=== PATIENT | male | born 1960 | race Caucasian/White ===

== ENCOUNTER 2024-11-25 10:24 | Emergency (ER) | payer BC, SELFPAY ==
--- OUTSIDE RECORDS SUMMARY | 2012-05-03 05:28 | XMS_ITS | Continuity of Care Document ---
Author Organization [facility] Address [address] [place] [address] Phone Care Team Providers Care Risk Management Consultant Name Role Phone Unavailable Unavailable Unavailable Allergies, Adverse Reactions, Alerts Substance Reaction Status Criticality No Known allergies Medications Medication Instructions Dosage Effective Dates (start - stop) Status Comments No Drug Therapy Prescribed Advance Directives Directive Yes / No Effective Date File Name No Information Encounters Encounter Description Practice Location Reason(s) For Visit Diagnoses Date Provider Providers Copied on Encounter [facility], [address], [place], [place], [id number], [place] tel:[phone] [facility] No Information No Information Referring Provider: [place] [id number], [place], [address]. tel:[phone] Family History Family Member Type Diagnosis Age At Onset No Information Payers Payer name Insurance type Covered green party ID Shahid rose(s) [facility] [id number] Social History Type Description Quantity Date Captured Comments Sex Male Smoking Status No Information Chief Complaint And Reason For Visit No Information Reason For Referral Reason For Referral No Information History Of Present Illness Encounter Date Complaint History Of Prese nt Illness No Information Functional Status Date Functional Assessmen t No Information Medications Administered Medication Instructions Dosage Effective Dates (start - stop) Status Comments No Drug Therapy Prescribed Instructions Date Instruction Additional Infor mation No Information Assessments Type Assessment Date No Information Patient Care Teams Name Effective Dates (start - stop) Status Members No Information
--- OUTSIDE RECORDS SUMMARY | 2013-04-16 10:15 | XMS_ITS | Continuity of Care Document ---
Author Organization [facility] Address [address] [address] [place] [address] Phone Care Team Providers Care Delivery Agent Name Role Phone Unavailable Unavailable Unavailable Medications Medication Instructions Dosage Effective Dates (start - stop) Status Comments Stool Softener 100 mg capsule take 1 capsule (100MG) by ORAL route every day 100 MG - Active Procedures Procedure Date Offic/outpt E&m New Mod-hi Routine Serum Collection Basic Metabolic Panel Thyroid Stim Hormone Results Test Name Date and Time Measure Units Reference Range Abnormal Flag Status Comments Panel Description: Basic Metabolic Panel Final Calcium, Serum 13 15:21:22 9.1 mg/dl 8.5-10.1 Final Carbon Dioxide, Total Mar- 13 15:21:22 31 mmol/L 21-32 Final Chloride, Serum Mar- 13 15:21:22 101 mmol/L 98-107 Final Creatinine, Serum Mar- 13 15:21:22 1.20 mg/dl 0.60-1.30 Final Glucose, Serum Mar- 13 15:21:22 65 mg/dl 74-100 L Final Potassium, Serum Mar- 13 15:21:22 3.8 mmol/L 3.5-5.1 Final Sodium, Serum Mar- 13 15:21:22 140 mmol/L 136-145 Final BUN Mar- 13 15:21:22 15 mg/dl 5-22 Final BUN/Creatinine Ratio 13 15:21:22 12.50 10.00-20.00 Final eGFR If Africn Am 13 15:21:22 > 60 > 60 Final This calculation is for [facility] patients eGFR If NonAfricn Am 13 15:21:22 > 60 > 60 Final This calculation is for Non [facility] patients ANGAP 13 15:21:22 12.20 5.00-18.00 Final Panel Description: TSH Final TSH 15:21:22 1.63 uIU/ml 0.36-5.00 Final Advance Directives Directive Yes / No Effective Date File Name Resuscitation Not Answered N/A N/A Life Support Not Answered N/A N/A Intubation Not Answered N/A N/A Antibiotics Not Answered N/A N/A IV Fluid Support Not Answered N/A N/A Tube Feed Not Answered N/A N/A Other Directive N/A N/A WARNING:The information contained in this section is historical and is provided for information only and does not constitute a legal document or any assurance that the information is still accurate. Please verify the information with the prather of the legal document before using it for clinical purposes. Encounters Encounter Description Practice Location Reason(s) For Visit Diagnoses Date Provider Providers Copied on Encounter Offic/outpt E&m [facility], [address] [address], [place], [place], [id number], tel:[phone] [facility] Abdominal pain (chief complaint) Constipati on (chief complaint) Abdominal Pain, UnspecifiedCon stipation Unspecified 3 No Information Referring Provider: Deon Iniguez MD A, [address] [place], [address]. tel:[phone] Family History Family Member Type Diagnosis Age At Onset First degree family history Problem (finding) No history of Crohn's First degree family history Problem (finding) No history of Ulcerative Colitis First degree family history Problem (finding) No Family history of No history of Colon Polyps First degree family history Problem (finding) No history of Cancer, colon Payers Payer name Insurance type Covered constitution party ID [facility]iza rose[facility] [id number] Social History Type Description Quantity Date Captured Comments Alcohol Use Details No Caffeine Use Details Unknown Tobacco Use Status No Information Smoking Status No Information Sex Male Chief Complaint And Reason For Visit From encounter dated '04/16/2013 15:15'. Abdominal pain (chief complaint) Constipation (chief complaint) Reason For Referral Reason For Referral No Information History Of Present Illness Encounter Date Complaint History Of Prese nt Illness No Information Functional Status Date Functional Assessmen t No Information Instructions Date Instruction Additional Infor mation No Information Assessments Type Assessment Date No Information Patient Care Teams Name Effective Dates (start - stop) Status Members No Information
--- OUTSIDE RECORDS SUMMARY | 2024-10-16 10:30 | XMS_ITS | Encounter Summary ---
Author Organization [facility] Address [address] [place] [id number] Care Team Providers Care Engineering Coordinator Name Role Phone Alfie Calhoun MD Unavailable Derek Pacheco MD Unavailable [phone] Bobbi Snell NP Unavailable Alfie Santacruz MD Unavailable [phone] Derek Pacheco MD Unavailable Shanel Lerma MD Unavailable Kanu Rajan DO Unavailable [phone] Shanel Lerma MD Unavailable [phone] Kristal Gamez PA-C Unavailable [phone] Rashawn Ramirez MD Unavailable Shanel Lerma MD Primary Care Provider [phone] Reason for Referral * Care Coordination (Routine: Next available opening) - Pending Review Specialty Diagnoses / Procedures Referred By Contac t Referred To Contact Diagnoses Chronic pain syndrome Degeneration of intervertebral disc of lumbar region with discogenic back pain [place] [address] [place] [address] Phone: tel: fax: Referral ID Status Reason Start Date Expiration Date V isits Requested Visits Authorized [id number] Pending Review 10/16/2024 10/16/2025 1 1 Question Answer Reason for Referral: Patient/Caregiver Support Patient/Caregiver Suport: Resources for Support Clinical Staff have discussed the Care Coordination Referral with the patient and/or caregiver: Yes Additional Information: would like FRONT WORKER help to do ADLs Comments * Diagnostic Imaging Ultrasound (Routine) - Pending Review Specialty Diagnoses / Procedures Referred By Contac t Referred To Contact Radiology. Diagnoses Screening for AAA (abdominal aortic aneurysm) Procedures [place] [address] [place] [address] Phone: tel: fax: Referral ID Status Reason Start Date Expiration Date V isits Requested Visits Authorized [id number] Pending Review 10/16/2024 10/16/2025 1 1 Reason for Visit * Reason Comments Wellness Visit Encounter Details Date Type Department Care Team (Late st Contact Info) Description 10/16/2024 10:30 AM CDT Office Visit [address] [id number] [place] [address] [place] [address] Routine general medical examination at a health care facility (Primary Dx); Screening for AAA (abdominal aortic aneurysm); Hyperlipidemia LDL goal <130; Essential hypertension; Tinea cruris; Morbid obesity (H); Obstructive sleep apnea syndrome; Chronic pain syndrome; Degeneration of intervertebral disc of lumbar region with discogenic back pain and lower extremity pain Social History Tobacco Use Types Packs/Day Years Used Date Smoking Tobacco: Former Cigarettes 0.5 10 0 06/20/1974 - 06/20/1984 Passive Smoke Exposure: Past Smokeless Tobacco: Never Alcohol Use Standard Drinks/Week Comments No 0 (1 standard drink = 0.6 oz pur e alcohol) Social Connection and Isolation Panel [NHANES] A nswer Date Recorded Frequency of Communication with Friends and Fami ly Not on file 10/16/2024 How often do you get together with friends or re latives? Never 10/16/2024 Attends Congregational Services Not on file 10/16 Active Member of Clubs or Organizations Not on f ile 10/16/2024 Attends Club or Organization Meetings Not on kat e 10/16/2024 Marital Status Not on file 10/16/2024 AUDIT-C Answer Date Recorded Q1: How often do you have a drink containing alc ohol? Monthly or less 05/27/2023 Q2: How many drinks containi ng alcohol do you have on a typical day when you are drinking? 1 or 2 05/27/2023 Q3: How often do you have si x or more drinks on one occasion? Never 05/27/2023 PHQ-2 Answer Date Recorded PHQ-2 Score 2 10/16/2024 [facility] - Occupational Stress Questionnaire Answer Date Recorded Do you feel stress - tense, restless, nervous, or anxious, or unable to sleep at night because your mind is troubled all the time - these days? Not at all 10/16/2024 Exercise Vital Sign Answer Date Recorde d On average, how many days pe r week do you engage in moderate to strenuous exercise (like a brisk walk)? 0 days 10/16/2024 On average, how many minutes do you engage in exercise at this level? 0 min 10/16/2024 Adolescent Education Answer Date Record ed Getting School Help Needed Not on file 04/03 Food Insecurity Answer Date Recorded Within the past 12 months, d id you worry that your food would run out before you got money to buy more? No 10/16/2024 Within the past 12 months, d id the food you bought just not last and you didn t have money to get more? No 10/16/2024 Housing Stability Answer Date Recorded Do you have housing? (Housin g is defined as stable permanent housing and does not include staying outside in a car, in a tent, in an abandoned building, in an overnight intermediate, or couch-surfing.) Yes 10/16/2024 Are you worried about losing your housing? No 10/16/2024 Financial Resource Strain Answer Date R ecorded Within the past 12 months, h ave you or your family members you live with been unable to get utilities (heat, electricity) when it was really needed? No 10/16/2024 Transportation Needs Answer Date Record ed Within the past 12 months, h as lack of transportation kept you from medical appointments, getting your medicines, non-medical meetings or appointments, work, or from getting things that you need? No 10/16/2024 Interpersonal Safety Answer Date Record ed Do you feel physically and e motionally safe where you currently live? Yes 10/16/2024 Within the past 12 months, h ave you been hit, slapped, kicked or otherwise physically hurt by someone? No 10/16/2024 Within the past 12 months, h ave you been humiliated or emotionally abused in other ways by your partner or ex-partner? 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 Gender Identity Male 10/07/2018 12:43 PM CDT Sexual Orientation Straight 01/01/2021 1: 52 PM CDT documented as of this encounter Last Filed Vital Signs Vital Sign Reading Time Taken Comments Blood Pressure 138/80 10/16/2024 10:22 AM CDT Pulse 81 10/16/2024 10:22 AM CDT Temperature 36.7 C (98.1 F) 10/16/2024 10:20 AM CDT Respiratory Rate 16 10/16/2024 10:20 AM CDT Oxygen Saturation 95% 10/16/2024 10:20 AM CDT Inhaled Oxygen Concentration - - Weight 119.3 kg (263 lb) 10/16/2024 10:20 AM CDT Height 175.9 cm (5' 9.25) 10/16/2024 10:20 AM C DT Body Mass Index 38.56 10/16/2024 10:20 AM CDT documented in this encounter Patient Instructions * Patient Instructions* Jed Nguyen CMA - 10/16/2024 10:30 AM CDT Images from the original note were not included. Patient Education Preventive Care Advice This is general advice given by our system to help you stay healthy. However, your care team may have specific advice just for you. Please talk to your care team about your preventive care needs. Nutrition Eat 5 or more servings of fruits and vegetables each day. Try wheat bread, brown rice and whole grain pasta (instead of white bread, rice, and pasta). Get enough calcium and vitamin D. Check the label on foods and aim for 100% of the ODD TICKET CLERK (recommendeddaily allowance). Lifestyle Exercise at least 150 minutes each week (30 minutes a day, 5 days a week). Do muscle strengthening activities 2 days a week. These help control your weight and prevent disease. No smoking. Wear sunscreen to prevent skin cancer. Have a dental exam and cleaning every 6 months. Yearly exams See your health care team every year to talk about: Any changes in your health. Any medicines your care team has prescribed. Preventive care, family planning, and ways to prevent chronic diseases. Shots (vaccines) HPV shots (up to age 26), if you've never had them before. Hepatitis B shots (up to age 59), if you've never had them before. COVID-19 shot: Get this shot when it's due. Flu shot: Get a flu shot every year. Tetanus shot: Get a tetanus shot every 10 years. Pneumococcal, hepatitis A, and RSV shots: Ask your care team if you need these based on your risk. Shingles shot (for age 50 and up) General health tests Diabetes screening: Starting at age 35, Get screened for diabetes at least every 3 years. If you are younger than age 35, ask your care team if you should be screened for diabetes. Cholesterol test: At age 39, start having a cholesterol test every 5 years, or more often if advised. Bone density scan (DEXA): At age 50, ask your care team if you should have this scan for osteoporosis (brittle bones). Hepatitis C: Get tested at least once in your life. STIs (sexually transmitted infections) Before age 24: Ask your care team if you should be screened for STIs. After age 24: Get screened for STIs if you're at risk. You are at risk for STIs (including HIV) if: You are sexually active with more than one person. You don't use condoms every time. You or a partner was diagnosed with a sexually transmitted infection. If you are at risk for HIV, ask about PrEP medicine to prevent HIV. Get tested for HIV at least once in your life, whether you are at risk for HIV or not. Cancer screening tests Cervical cancer screening: If you have a cervix, begin getting regular cervical cancer screening tests starting at age 21. Breast cancer scan (mammogram): If you've ever had breasts, begin having regular mammograms starting at age 40. This is a scan to check for breast cancer. Colon cancer screening: It is important to start screening for colon cancer at age 45. Have a colonoscopy test every 10 years (or more often if you're at risk) Or, ask your provider about stool tests like a FIT test every year or Cologuard test every 3 years. To learn more about your testing options, visit: . For help making a decision, visit: https://bit.ly/gx73536. Prostate cancer screening test: If you have a prostate, ask your care team if a prostate cancer screening test (PSA) at age 55 is right for you. Lung cancer screening: If you are a current or former smoker ages 50 to 80, ask your care team if ongoing lung cancer screenings are right for you. For informational purposes only. Not to replace the advice of your health care provider. Copyright ?? 2022 [employer]. All rights reserved. Clinically reviewed by the [facility]. [employer] 247024 - REV 07/13. Learning About Activities of Daily Living What are activities of daily living? Activities of daily living (ADLs) are the basic self-care tasks you do every day. These include eating, bathing, dressing, and moving around. As you age, and if you have health problems, you may find that it's harder to do some of these tasks. If so, your doctor can suggest ideas that may help. To measure what kind of help you may need, your doctor will ask how well you are able to do ADLs. Let your doctor know if there are any tasks that you are having trouble doing. This is an important first step to getting help. And when you have the help you need, you can stay as independent as possible. How will a doctor assess your ADLs? Asking about ADLs is part of a routine health checkup your doctor will likely do as you age. Your health check might be done in a doctor's office, in your home, or at a hospital. The goal is to find out if you are having any problems that could make it hard to care for yourself or that make it unsafe for you to be on your own. To measure your ADLs, your doctor will ask how hard it is for you to do routine tasks. Your doctor may also want to know if you have changed the way you do a task because of a health problem. Your doctor may watch how you: Walk back and forth. Keep your balance while you stand or walk. Move from sitting to standing or from a bed to a chair. Button or unbutton a shirt or sweater. Remove and put on your shoes. It's common to feel a little worried or anxious if you find you can't do all the things you used pedro able to do. Talking with your doctor about ADLs is a way to make sure you're as safe as possibleand able to care for yourself as well as you can. You may want to bring a caregiver, friend, or family member to your checkup. They can help you talk to your doctor. Follow-up care is a leon part of your treatment and safety. Be sure to make and go to all appointments, and call your doctor if you are having problems. It's also a good idea to know your test resultsand keep a list of the medicines you take. Current as of: April 12, 2024 Content Version: 14.4 ?? 4351-1271 [employer]. Care instructions adapted under license by your healthcare professional. If you have questions about a medical condition or this instruction, always ask your healthcare professional. [employer] disclaims any warranty or liability for your use of this information. Preventing Falls: Care Instructions Injuries and health problems such as trouble walking or poor eyesight can increase your risk of falling. So can some medicines. But there are things you can do to help prevent falls. You can exerciseto get stronger. You can also arrange your home to make it safer. Talk to your doctor about the medicines you take. Ask if any of them increase the risk of falls andwhether they can be changed or stopped. Try to exercise regularly. It can help improve your strength and balance. This can help lower your risk of falling. Practice fall safety and prevention. Wear low-heeled shoes that fit well and give your feet good support. Talk to your doctor if you have foot problems that make this hard. Carry a cellphone or wear a medical alert device that you can use to call for help. Use stepladders instead of chairs to reach high objects. Don't climb if you're at risk for falls. Ask for help, if needed. Wear the correct eyeglasses, if you need them. Make your home safer. Remove rugs, cords, clutter, and furniture from walkways. Keep your house well lit. Use night-lights in hallways and bathrooms. Install and use sturdy handrails on stairways. Wear nonskid footwear, even inside. Don't walk barefoot or in socks without shoes. Be safe outside. Use handrails, curb cuts, and ramps whenever possible. Keep your hands free by using a shoulder bag or backpack. Try to walk in well-lit areas. Watch out for uneven ground, changes in pavement, and debris. Be careful in the winter. Walk on the grass or gravel when sidewalks are slippery. Use de-icer on steps and walkways. Add non-slip devices to shoes. Put grab bars and nonskid mats in your shower or tub and near the toilet. Try to use a shower chairor bath bench when bathing. Get into a tub or shower by putting in your weaker leg first. Get out with your strong side first. Have a phone or medical alert device in the bathroom with you. Where can you learn more? Go to https://www.[employer].net/patiented Enter G117 in the search box to learn more about Preventing Falls: Care Instructions. Current as of: January 18, 2024 Content Version: 14.4 ?? [id number] [employer]. Care instructions adapted under license by your healthcare professional. If you have questions about a medical condition or this instruction, always ask your healthcare professional. [employer] disclaims any warranty or liability for your use of this information. Hearing Loss: Care Instructions Overview Hearing loss is a sudden or slow decrease in how well you hear. It can range from slight to profound. Permanent hearing loss can occur with aging. It also can happen when you are exposed long-term toloud noise. Examples include listening to loud music, riding motorcycles, or being around other loud machines. Hearing loss can affect your work and home life. It can make you feel lonely or depressed. You may feel that you have lost your independence. But hearing aids and other devices can help you hear better and feel connected to others. Follow-up care is a leon part of your treatment and safety. Be sure to make and go to all appointments, and call your doctor if you are having problems. It's also a good idea to know your test resultsand keep a list of the medicines you take. How can you care for yourself at home? Avoid loud noises whenever possible. This helps keep your hearing from getting worse. Always wear hearing protection around loud noises. Wear a hearing aid as directed. A professional can help you pick a hearing aid that will work best for you. You can also get hearing aids over the counter for mild to moderate hearing loss. Have hearing tests as your doctor suggests. They can show whether your hearing has changed. Your hearing aid may need to be adjusted. Use other devices as needed. These may include: Telephone amplifiers and hearing aids that can connect to a television, stereo, radio, or microphone. Devices that use lights or vibrations. These alert you to the doorbell, a ringing telephone, or a baby monitor. Television closed-captioning. This shows the words at the bottom of the screen. Most new TVs can dothis. TTY (text telephone). This lets you type messages back and forth on the telephone instead of talking or listening. These devices are also called TDD. When messages are typed on the keyboard, they aresent over the phone line to a receiving TTY. The message is shown on a monitor. Use text messaging, social media, and email if it is hard for you to communicate by telephone. Try to learn a listening technique called speechreading. It is not lipreading. You pay attention topeople's gestures, expressions, posture, and tone of voice. These clues can help you understand what a person is saying. Face the person you are talking to, and have them face you. Make sure the lighting is good. You need to see the other person's face clearly. Think about counseling if you need help to adjust to your hearing loss. When should you call for help? Watch closely for changes in your health, and be sure to contact your doctor if: You think your hearing is getting worse. You have new symptoms, such as dizziness or nausea. Where can you learn more? Go to https://www.[employer].net/patiented Enter R798 in the search box to learn more about Hearing Loss: Care Instructions. Current as of: April 15, 2024 Content Version: 14.4 ?? [employer]. Care instructions adapted under license by your healthcare professional. If you have questions about a medical condition or this instruction, always ask your healthcare professional. [employer] disclaims any warranty or liability for your use of this information. Relationships for Good Health Relationships are important for our health and happiness. Social isolation, loneliness and lack of support are bad for your health. Studies show that loneliness can harm health and limit your life span as much as high blood pressure and smoking. Take some time to reflect on your relationships. Then answer these questions: Are there people in your life that cause you stress or drain your energy? What can you do to set limits? Who do you enjoy spending time with? Who can you go to for support? What can you do to improve your relationships with others? What do you like most about your relationships with others? My goal: I will: For informational purposes only. Not to replace the advice of your health care provider. Copyright ?? 2018 [facility]. All rights reserved. Clinically reviewed by [facility] [employer]. [employer] 255015 - Rev 12/11. Learning About Depression Screening What is depression screening? Depression screening is a way to see if you have depression symptoms. It may be done by a doctor orcounselor. It's often part of a routine checkup. That's because your mental health is just as important as your physical health. Depression is a mental health condition that affects how you feel, think, and act. You may: Have less energy. Lose interest in your daily activities. Feel sad and grouchy for a long time. Depression is very common. It affects people of all ages. Many things can lead to depression. Some people become depressed after they have a stroke or find out they have a major illness like cancer or heart disease. The of a loved one or a breakup maylead to depression. It can run in families. Most experts believe that a combination of inherited genes and stressful life events can cause it. What happens during screening? You may be asked to fill out a form about your depression symptoms. You and the doctor will discussyour answers. The doctor may ask you more questions to learn more about how you think, act, and feel. What happens after screening? If you have symptoms of depression, your doctor will talk to you about your options. Doctors usually treat depression with medicines or counseling. Often, combining the two works best.Many people don't get help because they think that they'll get over the depression on their own. But people with depression may not get better unless they get treatment. The cause of depression is not well understood. There may be many factors involved. But if you havedepression, it's not your fault. A serious symptom of depression is thinking about or suicide. If you or someone you care about talks about this or about feeling hopeless, get help right away. It's important to know that depression can be treated. Medicine, counseling, and self-care may help. Where can you learn more? Go to https://www.[employer].net/patiented Enter T185 in the search box to learn more about Learning About Depression Screening. Current as of: January 18, 2024 Content Version: 14.4 ?? [employer]. Care instructions adapted under license by your healthcare professional. If you have questions about a medical condition or this instruction, always ask your healthcare professional. [employer] disclaims any warranty or liability for your use of this information. Substance Use Disorder: Care Instructions Overview You can improve your life and health by stopping your use of alcohol or drugs. When you don't drinkor use drugs, you may feel and sleep better. You may get along better with your family, friends, and coworkers. There are medicines and programs that can help with substance use disorder. How can you care for yourself at home? Here are some ways to help you stay sober and prevent relapse. If you have been given medicine to help keep you sober or reduce your cravings, be sure to take it exactly as prescribed. Talk to your doctor about programs that can help you stop using drugs or drinking alcohol. Do not keep alcohol or drugs in your home. Plan ahead. Think about what you'll say if other people ask you to drink or use drugs. Try not to spend time with people who drink or use drugs. Use the time and money spent on drinking or drugs to do something that's important to you. Preventing a relapse Have a plan to deal with relapse. Learn to recognize changes in your thinking that lead you to drink or use drugs. Get help before you start to drink or use drugs again. Try to stay away from situations, friends, or places that may lead you to drink or use drugs. If you feel the need to drink alcohol or use drugs again, seek help right away. Call a trusted friend or family member. Some people get support from organizations such as Narcotics Anonymous or [facility] or from treatment facilities. If you relapse, get help as soon as you can. Some people make a plan with another person that outlines what they want that person to do for them if they relapse. The plan usually includes how to handle the relapse and who to notify in case of relapse. Don't give up. Remember that a relapse doesn't mean that you have failed. Use the experience to learn the triggers that lead you to drink or use drugs. Then quit again. Recovery is a lifelong process. Many people have several relapses before they are able to quit for good. Follow-up care is a leon part of your treatment and safety. Be sure to make and go to all appointments, and call your doctor if you are having problems. It's also a good idea to know your test resultsand keep a list of the medicines you take. When should you call for help? Call 911 anytime you think you may need emergency care. For example, call if you or someone else: Has overdosed or has withdrawal signs. Be sure to tell the emergency workers that you are or someone else is using or trying to quit using drugs. Overdose or withdrawal signs may include: Losing consciousness. Seizure. Seeing or hearing things that aren't there (hallucinations). Is thinking or talking about suicide or harming others. Where to get help 24 hours a day, 7 days a week If you or someone you know talks about suicide,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
--- OUTSIDE RECORDS SUMMARY | 2024-11-14 08:51 | XMS_ITS | Encounter Summary ---
Author Organization [facility] Address [address] [place] [id number] Care Team Providers Care Redevelopment Manager Name Role Phone Alfie Calhoun MD Unavailable Derek Pacheco MD Unavailable [phone] Bobbi Snell NP Unavailable Alfie Santacruz MD Unavailable [phone] Derek Pacheco MD Unavailable [phone] Shanel Lerma MD Unavailable Kanu Rajan DO Unavailable [phone] Shanel Lerma MD Unavailable Kristal Gamez PA-C Unavailable [phone] Rashawn Ramirez MD Unavailable Shanel Lerma MD Primary Care Provider [phone] Veronique Menendez RN Unavailable Reason for Referral * Diagnostic Imaging Ultrasound (Routine) - Pending Review Specialty Diagnoses / Procedures Referred By Contac t Referred To Contact Radiology. Diagnoses Screening for AAA (abdominal aortic aneurysm) Procedures [place] [address] [place] [address] Phone: tel: fax: Referral ID Status Reason Start Date Expiration Date V isits Requested Visits Authorized [id number] Pending Review 10/16/2024 10/16/2025 1 1 Reason for Visit * Diagnostic Imaging Ultrasound (Routine) - Pending Review Specialty Diagnoses / Procedures Referred By Whitney t Referred To Contact Radiology. Diagnoses Screening for AAA (abdominal aortic aneurysm) Procedures [place] [address] [place] [address] Phone: tel: fax: Referral ID Status Reason Start Date Expiration Date V isits Requested Visits Authorized [id number] Pending Review 10/16/2024 10/16/2025 1 1 Encounter Details Date Type Department Care Team (Latest Contact Info) Description 11/14/2024 8:51 AM CDT - 11/14/2024 11:59 PM CDT Hospital Encounter [facility] [address] [facility] [address] [place] [address] [place] [address] [place] [address] Screening for AAA (abdominal aortic aneurysm) Discharge Disposition: Home or Self Care Social History Tobacco Use Types Packs/Day Years [...] friends or re latives? Never 10/16/2024 Attends Judaism Services Not on file 10/16 Active Member [...] Answer Date Recorded PHQ-2 Score 2 10/16/2024 [employer] [facility] [employer] - Occupational Stress [...] you got money to buy more? No 10/19/2024 Within the past 12 months, d id the food you bought just not last and you didn t have money to get more? No 10/19/2024 Housing Stability Answer Date Recorded Do you have housing? (Cuauhtemoc g is defined as stable permanent housing and does not include staying outside in a car, in a tent, in an abandoned building, in an overnight care home, or couch-surfing.) Yes 10/19/2024 Are you worried about losing your housing? No 10/19/2024 Financial Resource Strain Answer Date R ecorded Within the past 12 months, h ave you or your family members you live with been unable to get utilities (heat, electricity) when it was really needed? No 10/19/2024 Transportation Needs Answer Date Record ed Within the past 12 months, h as lack of transportation kept you from medical appointments, getting your medicines, non-medical meetings or appointments, work, or from getting things that you need? 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 90 tablet 3 5 Black Pepper-Turmeric (TURMERIC COMPLEX/BLACK PEPPER) 3-500 MG CAPS Take 500 mg by mouth Cholecalciferol (VITAMIN D3) 746866 UNIT/GM POWD Take 5,000 Units by mouth clotrimazole (LOTRIMIN) 1 % external creamIndications: Tinea cruris Apply topically 2 times daily. 45 g 11 5 fluticasone (ARNUITY ELLIPTA) 100 MCG/ACT inhalerIndication s:Intermittent asthma without complication, unspecified asthma severity Inhale 1 puff into the lungs daily 30 each 4 Krill Oil 500 MG CAPS Take 500 mg by mouth daily multivitamin w/minerals (THERA-VIT-M) tablet Take 1 tablet by mouth daily 6 nystatin-triamcin olone (MYCOLOG II) 581082-2.1 UNIT/GM-% external creamIndications: Tinea cruris Apply topically 2 times daily. 60 g 11 5 rosuvastatin (CRESTOR) 20 MG tabletIndications :Hyperlipidemia LDL goal <130 Take 1 tablet (20 mg) by mouth daily. 5 semaglutide-weigh t management (WEGOVY) 0.25 MG/0.5ML penIndications:Hy perlipidemia LDL goal <130,Essential hypertension,Morb id obesity (H),Obstructive sleep apnea syndrome Inject 0.5 mLs (0.25 mg) subcutaneously once a week. 2 mL 5 Turmeric 500 MG CAPSIndications:t aking 2 caps ( 1000 mg) once daily Take 500 mg by mouth daily UNABLE TO FIND Take 500 mg by mouth daily MEDICATION NAME: Quercetin UNABLE TO FIND Take 90 mcg by mouth daily MEDICATION NAME: MK-7 for D3 absorbtion vitamin C (ASCORBIC ACID) 100 MG tablet Take 100 mg by mouth daily zinc 50 MG TABS Take 15 mg by mouth 5 times daily documented as of this encounter Plan of Treatment Upcoming Encounters Date Type Department Care Team (Late st Contact Info) Description 12/27/2024 2:00 PM CDT Office Visit [address] [phone] Alfie Calhoun MD [address] [place] [address] 01/01/2025 11:00 AM CDT Office Visit [facility] [place] [address] [place] [phone] Derek Pacheco MD [address] [place] [address] [place] [address] 01/21/2025 PRE VISIT [facility] [address] [phone] Kristal Gamez PA-C [address] [place] [address] Previsit 01/21/2025 2:00 PM CDT Office Visit [facility] [address] [phone] [place] [address] [place] [address] Kristal Gamez PA-C [address] [address] 02/28/2025 9:30 AM CDT Virtual Visit [facility] [address] [facility] [address] [place] [phone] Kanu Rajan, [address] [place] [address] 106 [place] [address] 10/24/2025 1:30 PM CDT Office Visit [address] [phone] [place] [address] [place] [address] documented as of this encounter Goals Goal Patient Goal Type Associated Problems Recent Progress Patient-Stated? Author Become up-to-date with health maintenance visit(s) Care Plan Health Maintenance Due or Overdue 10%( 11:08 AM CDT) Veronique Escalera, RN Note: Barriers: Limited mobility; Financial limitations; Provider availability-wait time to complete appointments. Strengths: Motivated; Good familial support from spouse; Agreeable to Care Coordination. Patient expressed understanding of goal: Yes Action steps to achieve this goal: 1. I will take my medications as prescribed. (Compliant) 2. I will discuss, review, schedule and complete recommended overdue health maintenance with my Primary Care Provider. (Ongoing) 3. I will contact my care team with questions, concerns or support needs. I will use the clinic as a resource and I understand I can contact my clinic with 24/7 after hours services available. Cable Operator will remain available as needed. Resources for Housekeeping/Chore services and Patient/Caregiver support. Care Plan Resources 0%(10/19/2024 11:10 AM CDT) Veronique Escalera RN Note: Barriers: Limited mobility; Financial limitations; Provider availability-wait time to complete appointments. Strengths: Motivated; Good familial support from spouse; Agreeable to Care Coordination. Patient expressed understanding of goal: Yes Action steps to achieve this goal: 1. I will review the resources provided by Care Coordination. (Ongoing) 2. I will contact the resources with any questions. I will contact my Cable Operator if additional resources are needed or desired. 3. I will contact my care team with questions, concerns or support needs. I will use the clinic as a resource and I understand I can contact my clinic with 24/7 after hours services available. Cable Operator will remain available as needed. Complete Health Care Directive Care Plan Patient does not have a valid Health Care Directive 0%(10/19/2024 11:12 AM CDT) Veronique Escalera RN Note: Barriers: Limited mobility; Financial limitations; Provider availability-wait time to complete appointments. Strengths: Motivated; Good familial support from spouse; Agreeable to Care Coordination. Patient expressed understanding of goal: Yes Action steps to achieve this goal: 1. I will review the resource for Elizabeth Dejesus (department within [facility] that can assist with completing Advance Care Planning documents. 2. I will contact Honormarbella Dejesus with any questions or when I am ready to complete my Advance Care Planning documents. 3. I will contact my care team with questions, concerns or support needs. I will use the clinic as a resource and I understand I can contact my clinic with 24/7 after hours services available. Cable Operator will remain available as needed. documented as of this encounter Procedures Procedure Name Priority Date/Time Associated Diagnosis Comments US ABDOMINAL AORTA Routine 11/14/2024 9: 07 AM CDT Screening for AAA (abdominal aortic aneurysm) documented in this encounter Results * US Abdominal Aorta (11/14/2024 9:07 AM CDT) Anatomical Region Laterality Modality Abdomen/Pelvis Ultrasound 11/14/2024 9:07 AM CDT Impressions 11/14/2024 12:16 PM CDT IMPRESSION: No abdominal aortic aneurysm. Narrative 11/14/2024 12:16 PM CDT EXAM: US ABDOMINAL AORTA LOCATION: [facility] DATE: 11/14/2024 INDICATION: Screening for AAA [...] - 11/14/2024 EXAM: US ABDOMINAL AORTA LOCATION: [facility] DATE: 11/14/2024 INDICATION: Screening for AAA [...] abdominal aortic aneurysm. us Shanel Lerma MD [facility] US ORDERABLES Final R esult documented in this encounter Visit Diagnoses Diagnosis Screening for AAA (abdominal aortic aneurysm) Screening for other and unspecified cardiovascular conditions documented in this encounter Additional Health Concerns Active Problems Noted Date Diagnosed Date Health Maintenance Due or Overdue 10/19/2024 Resources 10/19/2024 Patient does not have a valid Health Care Direct marciano 10/19/2024 Assessment Noted Time PHQ-9 Depression Total Score: 6 10/17/19 25 8:48 AM CDT documented as of this encounter Care Teams Redevelopment Manager Relationship Specialty [place] [address] [place] [address] PCP - General Family Medicine 10/16/24 Alfie Calhoun MD [address] [place] [address] Dermatology 02/11/21 Derek Pacheco MD [address] [place] [address] [place] [address] Urology 03/31/21 Bobbi Snell, PAVER INSTALLER [address] [place] [address] Nurse Practitioner Family Medicine 07/27/22 Alfie Santacruz MD [address] [place] [address] [address] [place] [address] Critical Care 07/27/22 Derek Pacheco MD [address] [place] [address] [place] [address] Assigned Surgical Provider 10/23/22 [place] [address] [place] [address] Assigned PCP 10/11/23 Kanu Rajan DO [address] [facility] [address] [place] [address] Assigned Sleep Provider 05/12/24 [place] [address] [place] [address] Family Medicine 07/18/24 Kristal Gamez PA-C [address] [address] Physician Manager Retail Plastic Surgery 07/18/24 Rashawn Ramirez MD [address] [place] [address] Assigned Dermatology Provider 09/09/24 Veronique Menendez, RN Lead Cable Operator Primary Care - CC 10/18/24 documented as of this encounter
[2024-11-25 10:35] VITALS: BP 125/82; PULSE 91; RESP 20; TEMP 36.8; O2SAT 94; BMI 35.9
--- NOTE | 2024-11-25 11:11 | ED_ITS ---
HPI - General Adult General Chief complaint: Nausea/Vomiting Stated complaint: Vomiting and Diahhrea Time Seen by Provider: 11/25/24 10:49 History of Present Illness HPI narrative: Patient is a 63-year-old gentleman who is on semaglutide. He was doing fine and action losing weight on a low dose. He has subsequently increased his dose last few days it has developed refractory nausea vomiting and diarrhea. No overt abdominal pain no fevers no chills no night sweats no cough no shortness of breath no chest pain. Symptoms have been refractory to [id number] hydration methods and he comes in for further evaluation. Symptoms been present for the last 12 hours. Related Data Home Medications ?Medication ?Instructions ?Recorded ?Confirmed Zofran 11/25/24 semaglutide 11/25/24 Allergies Allergy/AdvReac Type Severity Reaction Status Date / Time No Known Drug Allergies Allergy Verified 11/25/24 10:38 Review of Systems Status of ROS: Reports: 10 or more systems reviewed and unremarkable except as noted in History and below Exam Narrative: Exam Narrative: EXAM GENERAL: Patient appears comfortable and well. EYES: No scleral icterus. LYMPH: No supraclavicular or cervical lymphadenopathy. SKIN: Visible skin seen during exam normal or with benign process only. EXT: No dependent lower extremity pedal edema. HEART: Regular rate and rhythm with no murmurs, rubs, or gallops. LUNGS: Clear to auscultation bilaterally with no crackles or wheezes. ABD: Soft, non tender, non distended. PSYCH: Good eye contact, speech is not pressured. Const: Vital Signs, click to edit/add: Vital Signs - 24 hr 11/25/24 10:35 Temperature 98.2 F Pulse Rate [Pulse Oximeter] 91 Respiratory Rate 20 Blood Pressure [Ri ght Upper Arm] 125/82 Pulse Oximetry 94 Oxygen Delivery Me thod Room Air Course Course ED Course: Patient seen and examined. Center laboratory studies collected normal saline hydration begun. IV Zofran given. Vital Signs Vital signs: Initial Vital Signs Temperature 98.2 F 11/25/24 10:35 Temperature Source Temporal Artery Scan 11/25/24 10:35 Pulse Rate 91 11/25/24 10:35 Pulse Rhythm Regular 11/25/24 10:35 Respiratory Rate 20 11/25/24 10:35 Blood Pressure 125/82 11/25/24 10:35 Blood Pressure Mean 96 11/25/24 10:35 Blood Pressure Position Sitting 11/25/24 10:35 Pulse Oximetry 94 11/25/24 10:35 Oxygen Delivery Method Room Air 11/25/24 10:35 Vital Signs Temperature 98.2 F 11/25/24 10:35 Pulse Rate 91 11/25/24 10:35 Respiratory Rate 20 11/25/24 10:35 Blood Pressure 125/82 11/25/24 10:35 Pulse Oximetry 94 11/25/24 10:35 Oxygen Delivery Method Room Air 11/25/24 10:35 Temperature 98.2 F 11/25/24 10:35 Pulse Rate 91 11/25/24 10:35 Respiratory Rate 20 11/25/24 10:35 Blood Pressure 125/82 11/25/24 10:35 Pulse Oximetry 94 11/25/24 10:35 Oxygen Delivery Method Room Air 11/25/24 10:35 Medications Administered Medications: Generic Name Dose Route Start Last Admin Trade Name Freq PRN Reason Stop Dose Admin Ondansetron HCl 4 mg 11/25/24 10:57 11/25/24 11:31 Ondansetron 2 Mg/Ml Inj IVP 4 mg ONCE PRN Administration Discontinued Medications Generic Name Dose Route Start Last Admin Trade Name Freq PRN Reason Stop Dose Admin Sodium Chloride 1,000 mls @ 1,000 mls/hr 11/25/24 10:57 11/25/24 11:26 0.9 % Sodium Chloride 1000 Ml IV 11/25/24 11:56 1,000 mls/hr .Q1H WESLEY Administration Medical Decision Making [facility] Narrative Medical decision making narrative: Patient presents with nausea and vomiting of following increase in semaglutide dose. I did treated with normal saline and IV Zofran. Labs are reassuring. Vital signs reassuring and labs also reassuring. This time patient will be discharged home with oral Zofran p.r.n. basis no further semaglutide and follow- up with his primary physician as needed. Lab Data Labs: Lab Results 11/25/24 Range/Units 11:28 WBC 6.56 (4.50-11.00) K/uL RBC 5.64 (4.30-5.90) m/uL Hgb 16.5 (13.5-17.5) gm/dL Hct 50.5 (37.0-53.0) % MCV 90 (80-100) fL MCH 29 (26-34) pg MCHC 33 (32-36) gm/dL RDW Coeff of Bridgett 13.0 (11.5-15.5) % Plt Count 247 (140-440) K/uL Neut % (Auto) 68.9 (42.0-72.0) % Lymph % (Auto) 12.8 L (20-44) % Towner % (Auto) 14.5 H (0.0-11.0) % Eos % (Auto) 3.4 (0.0-7.0) % Baso % (Auto) 0.2 (0.0-3.0) % Neut # (Auto) 4.53 (1.7-7.0) K/uL Lymph # (Auto) 0.80 L (0.90-2.90) K/uL Towner # (Auto) 1.00 H (0.00-0.90) K/UL Eos # (Auto) 0.22 (0.00-0.50) K/uL Baso # (Auto) 0.01 (0.00-0.30) K/uL Abs Immat Gran (auto) 0.01 (0.00-0.30) K/uL Imm/Tot Granulo (auto) 0.2 % Sodium 136 (135-149) mmol/L Potassium 3.9 (3.6-5.1) mmol/L Chloride 102 (96-114) mmol/L Carbon Dioxide 27 (20-32) mmol/L Anion Gap 7 (7-15) mEq/L BUN 15 (7-30) mg/dL Creatinine 1.2 (0.5-1.5) mg/dL Estimated Creat Clear 63.37 Estimated GFR 67 ml/min Glucose 103 (60-115) mg/dL Calcium 8.7 (8.4-10.6) mg/dL Total Bilirubin 0.5 (0.1-1.5) mg/dL AST 22 (12-35) U/L ALT 26 (4-50) U/L Alkaline Phosphatase 99 (40-150) U/L Total Protein 6.7 (6.0-8.3) g/dL Albumin 3.9 (3.3-5.0) g/dL Discharge Plan Discharge Clinical Impression: Nausea & vomiting Patient Disposition: Home, Self-Care Condition: Stable Instructions: Acute Nausea and Vomiting (ED) Activity Level: No Restrictions Discharge Diet: Regular Prescriptions: No Action semaglutide Zofran Follow Up/Referrals: Provider,Not a Local [Primary Care Provider, Family Practice] Stand Alone Forms: [employer] Info Instructions
--- OUTSIDE RECORDS SUMMARY | 2024-11-25 11:17 | XMS_ITS | Encounter Summary ---
Author Organization [place] Address [address] [place] [address] Care Team Providers Care Car Dumper Operator Name Role Phone Deon Iniguez MD Primary Care Provider + [phone] Deon Iniguez MD Unavailable +[phone] Deon Iniguez MD Unavailable +[phone] Stevie Gilman MD Unavailable [phone] Shelly Stinson PA-C Unavailable Logan Lee MD Unavailable Alfie Calhoun MD Unavailable [phone] Veronika Sommer-C Unavailable Alfie Calhoun MD Unavailable [phone] Debra Miller-C Unavailable Shanel Lerma MD Unavailable +[phone] Derek Pacheco MD Unavailable +[phone] Lorene Kruse LP Unavailable [phone] Alfie Calhoun MD Unavailable [phone] No Ref-Primary, Physician Primary Care Provider Bobbi Snell NP Unavailable Alfie Santacruz MD Unavailable Derek Pacheco MD Unavailable Linda Bhatti SLIDE MAKER Unavailable Unavailable Arik, Milana Coyne APRN GENERAL PEDIATRICIAN Unavailable Un available HedtShanel adames MD Primary Care Provider [phone] Arik, Milana Doretha TRANSMISSION LINE ENGINEER GENERAL PEDIATRICIAN Unavailable Un available Arik, Milana Doretha STOVER GENERAL PEDIATRICIAN Unavailable Un available Arik, Milana Doretha STOVER GENERAL PEDIATRICIAN Unavailable Un available HedtkeShanel MD Unavailable +[phone] Satinder Kanu Li DOMINGUEZ Unavailable +[phone] HedtShanel adames MD Unavailable +[phone] Kristal Gamez PA-C Unavailable +[phone] Rashawn Ramirez MD Unavailable Shanel Lerma MD Primary Care Provider [phone] Karen Lorenz CHW Unavailable [phone] Veronique Menendez RN Unavailable Encounter Details Date Type Department Care Team (Late st Contact Info) Description 12/11/2013 [facility] [address] [place] [address] [place] [address] [facility] [place] [address] Social History Tobacco Use Types Packs/Day Years Used Date Smoking Tobacco: Former Cigarettes Q uit: 06/20/1984 Smokeless Tobacco: Never Alcohol Use Standard Drinks/Week Comments No 0 (1 standard drink = 0.6 oz pur e alcohol) Sex and Gender Information Value Date Recorded Sex Assigned at Male 10/07/2018 12:43 PM CDT 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 [address] [place] [phone] Derek Pacheco MD [address] [place] [address] 01/21/2025 PRE VISIT [facility] Plastic and Reconstructive Surgery [address] [phone] Kristal Gamez PAAfshinC [address] [place] [address] Previsit 01/21/2025 2:00 PM CDT Office Visit [facility] Plastic and Reconstructive Surgery [address] [phone] [place] [address] [place] [address] Kristal Gamez PA-C [address] [place] [address] 02/28/2025 9:30 AM CDT Virtual Visit [facility] Sleep [address] [phone] Kanu Rajan DO [address] [place] [address] 10/24/2025 1:30 PM CDT Office Visit [facility] [address] [place] [address] [place] [address] [place] [address] documented as of this encounter Visit Diagnoses Not on filedocumented in this encounter Additional Health Concerns Infection Onset Date Last Indicated Resolved Time Rule Out COVID-19 12/28/2023 12/28/2023 12/29/2023 12:25 AM CDT documented as of this encounter Care Teams Car Dumper Operator Relationship Specialty Start Date End Date Deno Iniguez MD [address] [place] [phone] PCP - General Internal Medicine 12/08/13 07/08/22 Deon Iniguez MD [address] [place] [address] PCP - Assigned PCP 02/12/18 08/22/18 No Ref-Primary, Physician PCP - General 07/23/22 05/23/23 [place] [address] [place] [address] PCP - General Family Medicine 05/24/23 10/15/24 [place] [address] [place] [address] PCP - General Family Medicine 10/16/24 Deon Iniguez MD [address] [place] [phone] Assigned PCP 02/12/18 04/26/20 Stevie Gilman MD [address] [place] [address] Assigned Surgical Provider 04/11/20 10/18/20 Shelly Stinson PA-C [facility] [address] [facility] [place] [address] Assigned PCP 05/11/20 01/17/21 [place] [address] [place] [address] Assigned PCP 04/27/20 05/10/20 Alfie Calhoun MD [address] [place] [address] Assigned Surgical Provider 10/19/20 01/10/21 Veronika Sommer PA-C [address] [place] [place] [address] Assigned Surgical Provider 01/11/21 04/25/21 Alfie Calhoun MD [address] [place] [address] Dermatology 02/11/21 Debra Miller PA-C [facility] [address] [place] [address] Assigned PCP 01/18/21 03/14/21 [place] [address] [place] [address] Assigned PCP 03/15/21 01/07/23 Derek Pacheco MD [address] [place] [address] Urology 03/31/21 [place] [address] [facility] [address] [place] [address] Assigned Behavioral Health Provider 05/10/21 07/30/22 Alfie Calhoun MD [address] [place] [address] Assigned Surgical Provider 04/26/21 10/22/22 Bobbi Snell NP 1700 [place] [address] Nurse Practitioner Family Medicine 07/27/22 Alfie Santacruz MD [address] [place] [address] Critical Care 07/27/22 Derek Pacheco MD [address] [place] [address] Assigned Surgical Provider 10/23/22 Linda Bhatti NP Assigned PCP 01/08/23 04/29/23 Milana Elise APRN GENERAL PEDIATRICIAN Assigned PCP 09/10/23 10/10/23 Milana Elise APRN GENERAL PEDIATRICIAN Assigned Pain Medication Provider 06/25/23 07/13/23 Milana Elise APRN GENERAL PEDIATRICIAN Assigned PCP 04/30/23 08/11/23 Milana Elise APRN GENERAL PEDIATRICIAN Assigned PCP 08/12/23 09/09/23 [place] [address] [place] [address] Assigned PCP 10/11/23 Kanu Rajan DO [address] [place] [address] Assigned Sleep Provider 05/12/24 [place] [address] [place] [address] Family Medicine 07/18/24 Kristal Gamez PA-C [address] [place] [address] [facility] Admin Plastic Surgery 07/18/24 Rashawn Ramirez MD [address] [place] [address] Assigned Dermatology Provider 09/09/24 Karen Lorenz CHW Community Health Worker 10/17/24 Veronique Menendez, RN Lead Philosophy And Religion Instructor Primary Care - CC 10/18/24 documented as of this encounter
--- OUTSIDE RECORDS SUMMARY | 2024-11-25 11:17 | XMS_ITS | Encounter Summary ---
Author Organization [place] Address [address] [place] [address] Care Team Providers Care Assault Amphibious Vehicle Officer Name Role Phone Alfie Calhoun MD Unavailable + [phone] Shanel Lerma MD Unavailable [phone] Derek Pacheco MD Unavailable [phone] Alfie Calhoun MD Unavailable [phone] No Ref-Primary, Physician Primary Care Provider Bobbi Snell NP Unavailable lAfie Santacruz MD Unavailable [phone] Derek Pacheco MD Unavailable [phone] Linda Bhatti NP Unavailable Unavailable ArikMilana APRN SENIOR CLINICAL CONSULTANT Unavailable Un available LisatShanel adames MD Primary Care Provider [phone] ArikMilana APRN SENIOR CLINICAL CONSULTANT Unavailable Un available ArikMilana APRN SENIOR CLINICAL CONSULTANT Unavailable Un available AirkMilana APRN SENIOR CLINICAL CONSULTANT Unavailable Un available HedtShanel adames MD Unavailable +[phone] Kanu Rajan DO Unavailable [phone] Shanel Lerma MD Unavailable [phone] Kristal Gamez PA-C Unavailable [phone] Rashawn Ramirez MD Unavailable Shanel Lerma MD Primary Care Provider [phone] Gerda Karen CHW Unavailable [phone] Veronique Menendez RN Unavailable Encounter Details Date Type Department Care Team (Late st Contact Info) Description 08/02/2022 MyC Medical Advice [facility] [address] [place] [phone] [place] [address] [place] [address] Social History Tobacco Use Types Packs/Day Years Used Date Smoking Tobacco: Former Cigarettes 0.5 10 0 06/20/1974 - 06/20/1984 Smokeless Tobacco: Never Alcohol Use Standard Drinks/Week Comments No 0 (1 standard drink = 0.6 oz pur e alcohol) Social Connection and Isolat ion Panel [NHANES] Answer Date Recorded In a typical week, how many times do you talk on the phone with family, friends, or neighbors? Twice a week 04/28/2021 How often do you get togethe r with friends or relatives? Once a week 04/28/2021 How often do you attend [facility] or mormonism services? More than 4 times per year 04/28/2021 Do you belong to any clubs o r organizations such as gnosticism groups, unions, fraternal or athletic groups, or school groups? No 04/28/2021 Attends Club or Organization Meetings Not on kat e 04/28/2021 Are you , , di vorced, , never , or living with a partner? 04/28/2021 AUDIT-C Answer Date Recorded Q1: How often do you have a drink containing alc ohol? Monthly or less 04/28/2021 Q2: How many drinks containi ng alcohol do you have on a typical day when you are drinking? 1 or 2 04/28/2021 Q3: How often do you have si x or more drinks on one occasion? Never 04/28/2021 Overall Financial Resource Strain (CARDIA) Answe r Date Recorded How hard is it for you to pa y for the very basics like food, housing, medical care, and heating? Not hard at all 04/28/2021 PHQ-2 Answer Date Recorded PHQ-2 Score 0 06/02/2021 [facility] Occupat ional Health - Occupational Stress Questionnaire Answer Date Recorded Do you feel stress - tense, restless, nervous, or anxious, or unable to sleep at night because your mind is troubled all the time - these days? To some extent 04/28/2021 Exercise Vital Sign Answer Date Recorde d On average, how many days pe r week do you engage in moderate to strenuous exercise (like a brisk walk)? 0 days 04/28/2021 On average, how many minutes do you engage in exercise at this level? 10 min 04/28/2021 Hunger Vital Sign Answer Date Recorded Within the past 12 months, y ou worried that your food would run out before you got the money to buy more. Never true 04/28/20 21 Within the past 12 months, t he food you bought just didn't last and you didn't have money to get more. Never true 04/28/2021 PRAPARE - Transportation Answer Date Re corded In the past 12 months, has l ack of transportation kept you from medical appointments or from getting medications? No 02/2021 In the past 12 months, has l ack of transportation kept you from meetings, work, or from getting things needed for daily living? No 04/28/2021 Housing Stability Vital Sign Answer Balwinder e Recorded In the last 12 months, was t here a time when you were not able to pay the mortgage or rent on time? No 04/28/2021 In the last 12 months, how many places have you lived? 1 04/28/2021 In the last 12 months, was t here a time when you did not have a steady place to sleep or slept in a mcc (including now)? No 04/28/2021 Sex and Gender Information Value Date Recorded Sex Assigned at Male 10/07/2018 12:43 PM CDT Legal Sex Male 3:23 AM INVISIBLE BRACES ORTHODONTIST Gender Identity Male 10/07/2018 12:43 PM CDT Sexual Orientation Straight 01/01/2021 1: 52 PM CDT COVID-19 Exposure Response Date Recorded In the last 10 days, have yo u been in contact with someone who was confirmed or suspected to have Coronavirus/COVID-19? Unable to assess 07/27/2022 10:07 AM INVISIBLE BRACES ORTHODONTIST documented as of this encounter Plan of Treatment Upcoming Encounters Date Type Department Care Team (Late st Contact Info) Description 12/27/2024 2:00 PM CDT Office Visit [address] [phone] Alfie Calhoun MD [address] [place] [address] 01/01/2025 11:00 AM CDT Office Visit [facility] Urology [facility] [address] [place] [phone] Derek Pacheco MD [address] [place] [address] 01/21/2025 PRE VISIT [facility] Plastic and Reconstructive Surgery [address] [phone] Kristal Gamez PA-C [address] [place] [address] Previsit 01/21/2025 2:00 PM CDT Office Visit [facility] Plastic and Reconstructive Surgery [address] [phone] [place] [address] [place] [address] Kristal Gamez PA-C [address] [place] [address] 02/28/2025 9:30 AM CDT Virtual Visit [facility] Sleep [address] [phone] Satinder Kanu Jefferson DO [address] [place] [address] 10/24/2025 1:30 PM CDT Office Visit [facility] [address] [place] [phone] [place] [address] [place] [address] documented as of this encounter Visit Diagnoses Not on filedocumented in this encounter Additional Health Concerns Infection Onset Date Last Indicated Resolved Time Rule Out COVID-19 12/28/2023 12/28/2023 12/29/2023 12:25 AM CDT Assessment Noted Time PHQ-9 Depression Total Score: 9 01/02/20 21 7:03 AM CDT documented as of this encounter Care Teams Assault Amphibious Vehicle Officer Relationship Specialty Start Date End Date No Ref-Primary, Physician PCP - General 07/23/22 05/23/23 [place] [address] [place] [address] PCP - General Family Medicine 05/24/23 10/15/24 [place] [address] [place] [address] PCP - General Family Medicine 10/16/24 Alfie Calhoun MD [address] [place] [address] Dermatology 02/11/21 [place] [address] [place] [address] Assigned PCP 03/15/21 01/07/23 Derek Pacheco MD [address] [place], [place] [address] Urology 03/31/21 Alfie Calhoun MD [address] [place] [address] Assigned Surgical Provider 04/26/21 10/22/22 Bobbi Snell NP 1700 [place] [address] Nurse Practitioner Family Medicine 07/27/22 Alfie Santacruz MD [address] [place] [address] Critical Care 07/27/22 Derek Pacheco MD [address] [place] [address] Assigned Surgical Provider 10/23/22 Linda Bhatti NP Assigned PCP 01/08/23 04/29/23 Milana Elise APRN SENIOR CLINICAL CONSULTANT Assigned PCP 09/10/23 10/10/23 Milana Elise APRN SENIOR CLINICAL CONSULTANT Assigned Pain Medication Provider 06/25/23 07/13/23 Milana Elise APRN SENIOR CLINICAL CONSULTANT Assigned PCP 04/30/23 08/11/23 Milana Elise APRN SENIOR CLINICAL CONSULTANT Assigned PCP 08/12/23 09/09/23 [place] [address] [place] [address] Assigned PCP 10/11/23 Kanu Rajan DO [address] [place] [address] Assigned Sleep Provider 05/12/24 [place] [address] [place] [address] Family Medicine 07/18/24 Kristal Gamez PA-C [address] [place] [address] Physician Operations Research Director Plastic Surgery 07/18/24 Rashawn Ramirez MD 500 [place], [place] [address] Assigned Dermatology Provider 09/09/24 Karen Lorenz CHW Community Health Worker 10/17/24 Veronique Menendez, RN Lead Toxicologist Primary Care - CC 10/18/24 documented as of this encounter
--- OUTSIDE RECORDS SUMMARY | 2024-11-25 11:17 | XMS_ITS | Encounter Summary ---
Author Organization [place] Address [address] [place] [address] Care Team Providers Care Senior Restaurant Manager Name Role Phone Deon Iniguez MD Primary Care Provider + [phone] Domenic Aviles MD Primary Care Provider + [phone] Deon Iniguez MD Primary Care Provider + [phone] Deon Iniguez MD Unavailable [phone] Deon Iniguez MD Unavailable [phone] Stevie Gilman MD Unavailable [phone] Shelly Stinson PA-C Unavailable + [phone] Logan Lee MD Unavailable Alfie Calhoun MD Unavailable +[phone] Veronika Sommer-C Unavailable +[phone] Alfie Calhoun MD Unavailable +[phone] Debra Miller-C Unavailable Shanel Lerma MD Unavailable +[phone] Derek Pacheco MD Unavailable [phone] Lorene Kruse LP Unavailable [phone] Alfie Calhoun MD Unavailable +[phone] No Ref-Primary, Physician Primary Care Provider Bobbi Snell NP Unavailable Alfie Santacruz MD Unavailable +[phone] Derek Pacheco MD Unavailable [phone] Linda Bhatti CASINO MANAGER Unavailable Unavailable Arik, Milana Coyne APRN BENEFITS CLERK Unavailable Un available Hedtke, Shanel Fernandes MD Primary Care Provider +[phone] Arik, Milana Coyne APRN BENEFITS CLERK Unavailable Un available Arik, Milana Coyne APRN BENEFITS CLERK Unavailable Un available Arik, Milana Coyne APRN BENEFITS CLERK Unavailable Un available Hedtke, Shanel Fernandes MD Unavailable +[phone] Kanu Rajan DO Unavailable [phone] HedtShanel adames MD Unavailable +[phone] Kristal Gamez PA-C Unavailable +[phone] Rashawn Ramirez MD Unavailable Shanel Lerma MD Primary Care Provider [phone] Gerda Karen CHW Unavailable [phone] Veronique Menendez RN Unavailable Encounter Details Date Type Department Care Team (Late st Contact Info) Description 08/28/[address] [phone] [facility] Social History Tobacco Use Types Packs/Day Years Used Date Smoking Tobacco: Former Cigarettes Q uit: 06/20/1984 Alcohol Use Standard Drinks/Week Comments No 0 (1 standard drink = 0.6 oz pur e alcohol) Sex and Gender Information Value Date Recorded Sex Assigned at Male 10/07/2018 12:43 PM CDT Legal Sex Male 3:23 AM SUPERINTENDENT DISTRIBUTION Gender Identity Male 10/07/2018 12:43 PM CDT Sexual Orientation Straight 01/01/2021 1: 52 PM CDT documented as of this encounter Plan of Treatment Upcoming Encounters Date Type Department Care Team (Late st Contact Info) Description 12/27/2024 2:00 PM CDT Office Visit [facility] [address] [phone] Alfie Calhoun MD 5200 [place] [address] 01/01/2025 11:00 AM CDT Office Visit [facility] Urology [facility] [address] [place] [phone] Derek Pacheco MD [address] [facility] [address] [place], [place] [address] 01/21/2025 PRE VISIT [facility] Plastic and Reconstructive Surgery [address] [phone] Kristal Gamez PAEverett [address] [place] [address] Previsit 01/21/2025 2:00 PM CDT Office Visit [facility] Plastic and Reconstructive Surgery [address] [phone] [place] [address] [place] [address] Kristal Gamez PA-C [address] [place] [address] 02/28/2025 9:30 AM CDT Virtual Visit [facility] Sleep [address] [phone] Kanu Rajan DO [address] [place] [address] 10/24/2025 1:30 PM CDT Office Visit [facility] [address] [place] [address] [place] [address] [place] [address] documented as of this encounter Visit Diagnoses Not on filedocumented in this encounter Additional Health Concerns Infection Onset Date Last Indicated Resolved Time Rule Out COVID-19 12/28/2023 12/28/2023 12/29/2023 12:25 AM CDT documented as of this encounter Care Teams Senior Restaurant Manager Relationship Specialty Start Date End Date Deon Iniguez MD [address] [place] [phone] PCP - General 08/04/01 12/06/13 Domenic Aviles MD [address] [place] [address] PCP - General Family Practice 12/07/13 12/07/13 Deon Iniguez MD [address] [place] [address] PCP - General Internal Medicine 12/08/13 07/08/22 Deon Iniguez MD [address] [place] [address] PCP - Assigned PCP 02/12/18 08/22/18 No Ref-Primary, Physician PCP - General 07/23/22 05/23/23 [place] [address] [place] [address] PCP - General Family Medicine 05/24/23 10/15/24 [place] [address] [place] [address] PCP - General Family Medicine 10/16/24 Deon Iniguez MD [address] [place] [address] Assigned PCP 02/12/18 04/26/20 Stevie Gilman MD [address] [place] [phone] Assigned Surgical Provider 04/11/20 10/18/20 Shelly Stinson PA-C [facility] [address] [place] [address] Assigned PCP 05/11/20 01/17/21 [place] [address] [place] [address] Assigned PCP 04/27/20 05/10/20 Alfie Calhoun MD [address] [place] [address] Assigned Surgical Provider 10/19/20 01/10/21 Veronika Sommer PA-C [address] [place] [place] [address] Assigned Surgical Provider 01/11/21 04/25/21 Alfie Calhoun MD [address]200 [place] [address] Dermatology 02/11/21 Debra Miller PA-C [facility] [address] [address] Assigned PCP 01/18/21 03/14/21 [place] [address] [place] [address] Assigned PCP 03/15/21 01/07/23 Derek Pacheco MD [address] [facility] 500 [place] [address] Urology 03/31/21 [place] [address] [facility] 200 [place] [address] Assigned Behavioral Health Provider 05/10/21 07/30/22 Alfie Calhoun MD 5[address] [place] [address] Assigned Surgical Provider 04/26/21 10/22/22 Bobbi Snell CASINO MANAGER 1700 [place] [address] Nurse Practitioner Family Medicine 07/27/22 Alfie Santacruz MD [address] [address] Critical Care 07/27/22 Derek Pacheco MD [address] [facility] 500 [place], [place] [address] Assigned Surgical Provider 10/23/22 Linda Bhatti NP Assigned PCP 01/08/23 04/29/23 Arik, Milana Coyne APRN BENEFITS CLERK Assigned PCP 09/10/23 10/10/23 Arik, Milana Coyne APRN BENEFITS CLERK Assigned Pain Medication Provider 06/25/23 07/13/23 [facility], Milana Coyne APRN BENEFITS CLERK Assigned PCP 04/30/23 08/11/23 [facility], Milana Coyne APRN BENEFITS CLERK Assigned PCP 08/12/23 09/09/23 [place] [address] [place] [address] Assigned PCP 10/11/23 Kanu Rajan DO [address] [place] [address] 106 [place] [address] Assigned Sleep Provider 05/12/24 [place] [address] [place] [address] Family Medicine 07/18/24 Kristal Gamez PA-C [address] [place] [address] Physician Service Worker Plastic Surgery 07/18/24 Rashawn Ramirez MD [address] [place] [address] Assigned Dermatology Provider 09/09/24 Karen Lorenz CHW Community Health Worker 10/17/24 Veronique Menendez, RN Lead Laundry Tech Primary Care - CC 10/18/24 documented as of this encounter
--- OUTSIDE RECORDS SUMMARY | 2024-11-25 11:17 | XMS_ITS | Encounter Summary ---
Author Organization [facility] Address [address] [place] [address] Care Team Providers Care Technical Training Specialist Name Role Phone Deon Iniguez MD Primary Care Provider + [phone] Stevie Gilman MD Unavailable [phone] Shelly Stinson PA-C Unavailable + [phone] Logan Lee MD Unavailable Alfie Calhoun MD Unavailable [phone] Veronika Sommer PA-C Unavailable +[phone] Alfie Calhoun MD Unavailable [phone] Debra Miller PA-C Unavailable Shanel Lerma MD Unavailable +[phone] Derek Pacheco MD Unavailable [phone] Lorene Kruse LP Unavailable [phone] Alfie Calhoun MD Unavailable [phone] No Ref-Primary, Physician Primary Care Provider Bobbi Snell NP Unavailable Alfie Santacruz MD Unavailable [phone] Derek Pacheco MD Unavailable +[phone] Linda Bhatti NP Unavailable Unavailable Milana Elise APRN CONTROL SYSTEM COMPUTER SCIENTIST Unavailable Un available Shanel Lerma MD Primary Care Provider [phone] ArikMilana APRN CONTROL SYSTEM COMPUTER SCIENTIST Unavailable Un available Arik, Milana Coyne APRN CONTROL SYSTEM COMPUTER SCIENTIST Unavailable Un available Arik, Milana Coyne APRN CONTROL SYSTEM COMPUTER SCIENTIST Unavailable Un available Shanel Lerma MD Unavailable [phone] Kanu Rajan DO Unavailable +[phone] Shanel Lerma MD Unavailable +[phone] Kristal Gamez PA-C Unavailable +[phone] Rashawn Ramirez MD Unavailable Shanel Lerma MD Primary Care Provider [phone] Misbahjeo Karen CHW Unavailable [phone] Veronique Menendez RN Unavailable Encounter Details Date Type Department Care Team (Late st Contact Info) Description 05/06/2020 [facility] [address] [address] Deon Iniguez MD [address] [place] [place] [address] Social History Tobacco Use Types Packs/Day Years Used Date Smoking Tobacco: Former Cigarettes 0 06/20/1974 - 06/20/1984 Smokeless Tobacco: Never Alcohol Use Standard Drinks/Week Comments No 0 (1 standard drink = 0.6 oz pur e alcohol) PHQ-2 Answer Date Recorded PHQ-2 Score 0 06/27/2018 Sex and Gender Information Value Date Recorded Sex Assigned at Male 10/07/2018 12:43 PM CDT Legal Sex Male 3:23 AM INDUSTRIAL PAINTER Gender Identity Male 10/07/2018 12:43 PM CDT Sexual Orientation Straight 01/01/2021 1: 52 PM CDT COVID-19 Exposure Response Date Recorded In the last month, have you been in contact with someone who was confirmed or suspected to have Coronavirus / COVID-19? No / Unsure 05/07/2020 2:58 PM INDUSTRIAL PAINTER documented as of this encounter Plan of Treatment Upcoming Encounters Date Type Department Care Team (Late st Contact Info) Description 12/27/2024 2:00 PM CDT Office Visit [address] [address] Alfie Calhoun MD 5200 [place] [address] 01/01/2025 11:00 AM CDT Office Visit [facility] [address] [place] [phone] Derek Pacheco MD [address] [place] [address] 01/21/2025 PRE VISIT [facility] Plastic and Reconstructive Surgery [address] [phone] Kristal Gamez PA-C [address] [place] [address] Previsit 01/21/2025 2:00 PM CDT Office Visit [facility] Plastic [facility]constructive Surgery [address] [phone] [place] [address] [place] [address] Kristal Gamez PA-C [address] [place] [address] 02/28/2025 9:30 AM CDT Virtual Visit [facility] Sleep [address] [phone] Kanu Rajan, 606 [facility] 106 [place] [address] 10/24/2025 1:30 PM CDT Office Visit [facility] [address] [place] [address] [place] [address] [place] [address] documented as of this encounter Visit Diagnoses Not on filedocumented in this encounter Additional Health Concerns Infection Onset Date Last Indicated Resolved Time Rule Out COVID-19 12/28/2023 12/28/2023 12/29/2023 12:25 AM CDT Assessment Noted Time PHQ-9 Depression Total Score: 0 03/15/20 18 7:16 AM CDT documented as of this encounter Care Teams Technical Training Specialist Relationship Specialty Start Date End Date Deon Iniguez MD [address] [place] [phone] PCP - General Internal Medicine 12/08/13 07/08/22 No Ref-Primary, Physician PCP - General 07/23/22 05/23/23 [place] [address] [place] [address] PCP - General Family Medicine 05/24/23 10/15/24 [place] [address] [place] [address] PCP - General Family Medicine 10/16/24 Stevie Gilman MD 6363 [facility] 500 [place] [phone] Assigned Surgical Provider 04/11/20 10/18/20 Shelly Stinson PA-C [facility] [address] [place] [address] Assigned PCP 05/11/20 01/17/21 [place] [address] [place] [address] Assigned PCP 04/27/20 05/10/20 Alfie Calhoun MD 5200 [place] [address] Assigned Surgical Provider 10/19/20 01/10/21 Veronika Sommer PA-C 6405 [facility] [address] [place] [address] Assigned Surgical Provider 01/11/21 04/25/21 Alfie Calhoun MD 5200 [place] [address] Dermatology 02/11/21 Debra Miller PA-C [facility] [address] [place] [address] Assigned PCP 01/18/21 03/14/21 [place] [address] [place] [address] Assigned PCP 03/15/21 01/07/23 Derek Pacheco MD [address] [place] [address] Urology 03/31/21 [place] [address] [facility] [address] [place] [address] Assigned Behavioral Health Provider 05/10/21 07/30/22 Alfie Calhoun MD [address] [place], [place] [address] Assigned Surgical Provider 04/26/21 10/22/22 Bobbi Snell NP 1700 [place] [address] Nurse Practitioner Family Medicine 07/27/22 Alfie Santacruz MD 420 [facility] 276 [place] [address] Critical Care 07/27/22 Derek Pacheco MD [address] [place] [address] Assigned Surgical Provider 10/23/22 Linda Bhatti, CHAPARRITA Assigned PCP 01/08/23 04/29/23 Milana Elise APRN CONTROL SYSTEM COMPUTER SCIENTIST Assigned PCP 09/10/23 10/10/23 Milana Elise APRN CONTROL SYSTEM COMPUTER SCIENTIST Assigned Pain Medication Provider 06/25/23 07/13/23 Milana Elise APRN CONTROL SYSTEM COMPUTER SCIENTIST Assigned PCP 04/30/23 08/11/23 Milana Elise APRN CONTROL SYSTEM COMPUTER SCIENTIST Assigned PCP 08/12/23 09/09/23 [place] [address] [place] [address] Assigned PCP 10/11/23 Kanu Rajan DO [address] [facility] 106 [place] [address] Assigned Sleep Provider 05/12/24 [place] [address] [place] [address] Family Medicine 07/18/24 Kristal Gamez PA-C [address] [place] [address]335 Physician Custom Furrier Plastic Surgery 07/18/24 Rashawn Ramirez MD 500 [place] [address] Assigned Dermatology Provider 09/09/24 Karen Lorenz CHW Community Health Worker 10/17/24 Veronique Menendez, ÁLVARO Lead Hot Baller Primary Care - CC 10/18/24 documented as of this encounter
--- OUTSIDE RECORDS SUMMARY | 2024-11-25 11:17 | XMS_ITS | Clinical Summary ---
Author Organization [facility] Address [address] [place] [address] Care Team Providers Care Civil Technician Name Role Phone Unavailable Primary Care Provider Unavailabl e Allergies Active Allergy Reactions Criticality Noted Date Comments Lisinopril Cough Low 01/16/2021 Medications amLODIPine (NORVASC) 2.5 mg tablet TAKE 1 TABLET (2.5 MG) BY MOUTH DAILY 01/18/2022 Active cholecalciferol, vitamin D3, (Cholecalciferol , VitD3,, Bulk,) 100,000 unit/gram powd Mix 5,000 units in liquid then take by mouth. Active multivitamins with minerals tablet Take 15 mg by mouth. Active turmeric/turmeri c ext/pepr ext (turmeric-turmer ic ext-pepper) 500-3 mg cap Take 500 mg by mouth. Active ascorbic acid, vitamin C, (VITAMIN C) 100 mg tablet Take 100 mg by mouth. Active albuterol HFA (PRO-AIR; VENTOLIN; PROVENTIL) 90 mcg/actuation inhaler Inhale 2 Puffs by mouth. 06/02/2021 Active albuterol HFA (PRO-AIR; VENTOLIN; PROVENTIL) 90 mcg/actuation inhalerIndicatio ns:Cough, unspecified type,Shortness of breath,Asthma, unspecified asthma severity, unspecified whether complicated, unspecified whether persistent (HC) Inhale 1-2 Puffs by mouth every 4 hours if needed for Wheezing. 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) from Last 3 Months Social History Tobacco Use Types Packs/Day Years Used Date Smoking Tobacco: Never Assessed Sex and Gender Information Value Date Recorded Sex Assigned at Not on file Legal Sex Male 6:50 PM CDT Gender Identity Not on file Sexual Orientation Not on file Obstetrics History Last Filed Vital Signs Vital Sign Reading Time Taken Comments Blood Pressure 128/90 03/17/2022 8:23 PM CDT Pulse 88 03/17/2022 9:09 PM CDT Temperature 36.6 C (97.9 F) 03/17/2022 7:26 PM CDT Respiratory Rate 18 03/17/2022 7:26 PM CDT Oxygen Saturation 97% 03/17/2022 9:09 PM CDT Inhaled Oxygen Concentration - - Weight 116.1 kg (256 lb) 03/17/2022 7:26 PM CDT Height - - Body Mass Index - - Plan of Treatment Health Maintenance Due Date Last Done Comments Tdap 1969 Depression screening for age 12+ 1970 HIV for age 15-65 1973 BMI (ht and wt on same day) for age 18+ 1976 Hepatitis C screening for ag e 18-79 1976 Tetanus booster 1978 Colonoscopy through age 75 12/14/2003 Lipids for age 45-75 12/14/2003 Pneumococcal series for age 50+ (1 of 1 - PCV) 2008 Zoster (shingles) series for age 50+ (1 of 2) 2008 Medicare Wellness for age 65+ 12/14/2023 COVID-19 vaccine series ( - 2023- season) 2024 05/18/2021, 10/09/2020, 09/09/2020 Influenza Vaccine (Season Ended) 2025 RSV vaccine for adults or (1 - 1-dose 75+ series) 2033 Hepatitis B series for 19+ Aged Out N o longer eligible based on patient's age to complete this topic Insurance [employer] CHOICE PPO MR
--- OUTSIDE RECORDS SUMMARY | 2024-11-25 11:17 | XMS_ITS | Encounter Summary ---
Author Organization [facility] Address [address] [place] [address] Care Team Providers Care Assistant Terminal Manager Name Role Phone Deon Iniguez MD Primary Care Provider + [phone] Deon Iniguez MD Unavailable [phone] Deon Iniguez MD Unavailable [phone] Stevie Gilman MD Unavailable [phone] Shelly Stinson PA-C Unavailable Logan Lee MD Unavailable Alfie Calhoun MD Unavailable [phone] Veronika Sommer-C Unavailable Alfie Calhoun MD Unavailable [phone] Debra Miller-C Unavailable Shanel Lerma MD Unavailable [phone] Derek Pacheco MD Unavailable Lorene Kruse LP Unavailable [phone] Alfie Calhoun MD Unavailable [phone] No Ref-Primary, Physician Primary Care Provider Bobbi Snell NP Unavailable Alfie Santacruz MD Unavailable Derek Pacheco MD Unavailable Linda Bhatti BUCKLE ASSEMBLER Unavailable Unavailable Arik, Milana Coyne APRN MARKETING EFFECTIVENESS MANAGER Unavailable Un available HedtkeShanel MD Primary Care Provider [phone] Arik, Milana Doretha TRANSONIC ENGINEER MARKETING EFFECTIVENESS MANAGER Unavailable Un available Arik, Milana Doretha TRANSONIC ENGINEER MARKETING EFFECTIVENESS MANAGER Unavailable Un available Arik, Milana Doretha TRANSONIC ENGINEER MARKETING EFFECTIVENESS MANAGER Unavailable Un available HedtkehSanel MD Unavailable [phone] Satinder Kanu Li DOMINGUEZ Unavailable [phone] HedtShanel adames MD Unavailable [phone] Kristal Gamez PA-C Unavailable [phone] Rashawn Ramirez MD Unavailable Shanel Lerma MD Primary Care Provider [phone] Kraen Lorenz CHW Unavailable [phone] Veronique Menendez RN Unavailable Encounter Details Date Type Department Care Team (Late st Contact Info) Description 12/27/2014 [facility] Medical Advice [address] [address] Komal Saldivar Social History Tobacco Use Types Packs/Day Years Used Date Smoking Tobacco: Former Cigarettes Q uit: 06/20/1984 Smokeless Tobacco: Never Alcohol Use Standard Drinks/Week Comments No 0 (1 standard drink = 0.6 oz pur e alcohol) Sex and Gender Information Value Date Recorded Sex Assigned at Male 10/07/2018 12:43 PM CDT 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 [address] [place] [phone] Derek Pacheco MD 6363 [facility] 500 [place] [address] 01/21/2025 PRE VISIT [facility] Plastic and Reconstructive Surgery [address] [phone] Kristal Gamez PA-C [address] [place] [address] Previsit 01/21/2025 2:00 PM CDT Office Visit [facility] Plastic and Reconstructive Surgery [address] [phone] [place] [address] [place] [address] Kristal Gamez PA-C [address] [place] [address] 02/28/2025 9:30 AM CDT Virtual Visit [facility] Sleep [address] 202 [place] [phone] Kanu Rajan DO 606 [facility] [facility] 106 [place] [address] 10/24/2025 1:30 PM CDT Office Visit [address] [address] [place] [address] [place] [address] documented as of this encounter Visit Diagnoses Not on filedocumented in this encounter Additional Health Concerns Infection Onset Date Last Indicated Resolved Time Rule Out COVID-19 12/28/2023 12/28/2023 12/29/2023 12:25 AM CDT documented as of this encounter Care Teams Assistant Terminal Manager Relationship Specialty Start Date End Date Deon Iniguez MD [address] [place] [phone] PCP - General Internal Medicine 12/08/13 07/08/22 Deon Iniguez MD [address] [place] [phone] PCP - Assigned PCP 02/12/18 08/22/18 No Ref-Primary, Physician PCP - General 07/23/22 05/23/23 [place] [address] [place] [address] PCP - General Family Medicine 05/24/23 10/15/24 [place] [address] [place] [address] PCP - General Family Medicine 10/16/24 Deon Iniguez MD [address] [place] [address] Assigned PCP 02/12/18 04/26/20 Stevie Gilman MD [address] [place] [phone] Assigned Surgical Provider 04/11/20 10/18/20 Shelly Stinson PA-C [facility] 2265 [place] [address] Assigned PCP 05/11/20 01/17/21 [place] [address] [place] [address] Assigned PCP 04/27/20 05/10/20 Alfie Calhoun MD 5200 [place] [address] Assigned Surgical Provider 10/19/20 01/10/21 Veronika Sommer PA-C [address] [place] [place] [address] Assigned Surgical Provider 01/11/21 04/25/21 Alfie Calhoun MD [address] [place] [address] Dermatology 02/11/21 Debra Miller PA-C [facility] [address] [place] [address] Assigned PCP 01/18/21 03/14/21 [place] [address] [place] [address] Assigned PCP 03/15/21 01/07/23 Derek Pacheco MD [address] [place] [address] Urology 03/31/21 [place] [address] [facility] 200 [place] [address] Assigned Behavioral Health Provider 05/10/21 07/30/22 Alfie Calhoun MD 5200 [place] [address] Assigned Surgical Provider 04/26/21 10/22/22 Bobbi Snell, BUCKLE ASSEMBLER 1700 [place] [address] Nurse Practitioner Family Medicine 07/27/22 Alfie Santacruz MD [address] [place] [address] 276 [place] [address] Critical Care 07/27/22 Derek Pacheco MD [address] [place] [address] Assigned Surgical Provider 10/23/22 Linda Bhatti NP Assigned PCP 01/08/23 04/29/23 Milana Elise APRN MARKETING EFFECTIVENESS MANAGER Assigned PCP 09/10/23 10/10/23 Milana Elise APRN MARKETING EFFECTIVENESS MANAGER Assigned Pain Medication Provider 06/25/23 07/13/23 Milana Elise APRN MARKETING EFFECTIVENESS MANAGER Assigned PCP 04/30/23 08/11/23 Milana Elise APRN MARKETING EFFECTIVENESS MANAGER Assigned PCP 08/12/23 09/09/23 [place] [address] [place] [address] Assigned PCP 10/11/23 Kanu Rajan DO [address] [address] Assigned Sleep Provider 05/12/24 [place] [address] [place] [address] Family Medicine 07/18/24 Kristal Gamez PA-C [address] 303845 Physician Highway Truck Driver Plastic Surgery 07/18/24 Rashawn Ramirez MD 500 [place], [place] [address] Assigned Dermatology Provider 09/09/24 Karen Lorenz CHW Community Health Worker 10/17/24 Veronique Menendez, RN Lead Emergency Room Technician Primary Care - CC 10/18/24 documented as of this encounter
--- OUTSIDE RECORDS SUMMARY | 2024-11-25 11:17 | XMS_ITS | Encounter Summary ---
Author Organization [facility] Address [address] [place] [address] Care Team Providers Care Software Configuration Specialist Name Role Phone Deon Iniguez MD Primary Care Provider + [phone] Deon Iniguez MD Unavailable [phone] Deon Iniguez MD Unavailable [phone] Stevie Gilman MD Unavailable [phone] Shelly Stinson PA-C Unavailable Logan Lee MD Unavailable Alfie Calhoun MD Unavailable [phone] Veronika Sommer-C Unavailable Alfie Calhoun MD Unavailable [phone] Debra Miller-C Unavailable Shanel Lerma MD Unavailable [phone] Derek Pacheco MD Unavailable Lorene Kruse LP Unavailable [phone] Alfie Calhoun MD Unavailable [phone] No Ref-Primary, Physician Primary Care Provider Bobbi Snell NP Unavailable Alfie Santacruz MD Unavailable Derek Pacheco MD Unavailable Linda Bhatti BILL RECAPITULATION CLERK Unavailable Unavailable Arik, Milana Coyne APRN SECURITIES CLERK Unavailable Un available HedtShanel adames MD Primary Care Provider [phone] Arik, Milana Doretha TUBE REBUILDER SECURITIES CLERK Unavailable Un available Arik, Milana Sarkardany STOVER SECURITIES CLERK Unavailable Un available Arik, Milana Sarkardany STOVER SECURITIES CLERK Unavailable Un available HedtkeShanel MD Unavailable [phone] Satinder Kanu Li DOMINGUEZ Unavailable [phone] HedtShanel adames MD Unavailable [phone] Kristal Gamez PA-C Unavailable [phone] Rashawn Ramirez MD Unavailable Shanel Lerma MD Primary Care Provider [phone] Karen Lorenz CHW Unavailable [phone] Veronique Menendez RN Unavailable Encounter Details Date Type Department Care Team (Late st Contact Info) Description 11/25/2014 MyC Medical Advice [facility] [address] [address] Deon Iniguez MD [address] [address] Social History Tobacco Use Types Packs/Day Years Used Date Smoking Tobacco: Former Cigarettes Q uit: 06/20/1984 Smokeless Tobacco: Never Alcohol Use Standard Drinks/Week Comments No 0 (1 standard drink = 0.6 oz pur e alcohol) Sex and Gender Information Value Date Recorded Sex Assigned at Male 10/07/2018 12:43 PM CDT 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 Gender Identity Male 10/07/2018 12:43 PM CDT Sexual Orientation Straight 01/01/2021 1: 52 PM CDT documented as of this encounter Plan of Treatment Upcoming Encounters Date Type Department Care Team (Late st Contact Info) Description 12/27/2024 2:00 PM CDT Office Visit [facility] [address] [phone] Alfie Calhoun MD 5200 [place] [address] 01/01/2025 11:00 AM CDT Office Visit [facility] Urology [facility] [address] [place] [phone] Derek Pacheco MD [address] [facility] [address] [facility] 500 [place], [place] [address] 01/21/2025 PRE VISIT [facility] Plastic and Reconstructive Surgery [address] [phone] Kristal Gamez PA-C [address] [place] [address] Previsit 01/21/2025 2:00 PM CDT Office Visit [facility] Plastic and Reconstructive Surgery [address] [phone] [place] [address] [place] [address] Kristal Gamez PA-C [address] [place] [address] 02/28/2025 9:30 AM CDT Virtual Visit [facility] Sleep [address] [phone] Kanu Rajan DO [address] [place], [place] [address] 10/24/2025 1:30 PM CDT Office Visit [facility] [address] [place] [address] [place] [address] [place] [address] documented as of this encounter Visit Diagnoses Not on filedocumented in this encounter Additional Health Concerns Infection Onset Date Last Indicated Resolved Time Rule Out COVID-19 12/28/2023 12/28/2023 12/29/2023 12:25 AM CDT documented as of this encounter Care Teams Software Configuration Specialist Relationship Specialty Start Date End Date Deon Iniguez MD [address] [place] [phone] PCP - General Internal Medicine 12/08/13 07/08/22 Deon Iniguez MD [address] [place] [phone] PCP - Assigned PCP 02/12/18 08/22/18 No Ref-Primary, Physician PCP - General 07/23/22 05/23/23 [place] [address] [place] [address] PCP - General Family Medicine 05/24/23 10/15/24 [place] [address] [place] [address] PCP - General Family Medicine 10/16/24 Deon Iniguez MD [address] [place] [phone] Assigned PCP 02/12/18 04/26/20 Stevie Gilman MD [address] [place] [address] Assigned Surgical Provider 04/11/20 10/18/20 Shelly Stinson PA-C [facility] [address] [facility] [place] [address] Assigned PCP 05/11/20 01/17/21 [place] [address] [place] [address] Assigned PCP 04/27/20 05/10/20 Alfie Calhoun MD 5200 [place] [address] Assigned Surgical Provider 10/19/20 01/10/21 Veronika Sommer PA-C [address] [place] [place] [place] [address] Assigned Surgical Provider 01/11/21 04/25/21 Alfie Calhoun MD 5200 [place] [address] Dermatology 02/11/21 Debra Miller PA-C [facility] [address] [place] [address] Assigned PCP 01/18/21 03/14/21 [place] [address] [place] [address] Assigned PCP 03/15/21 01/07/23 Derek Pacheco MD [address] [place] [address] Urology 03/31/21 [place] [address] [facility] 200 [place] [address] Assigned Behavioral Health Provider 05/10/21 07/30/22 Alfie Calhoun MD 5200 [place] [address] Assigned Surgical Provider 04/26/21 10/22/22 Bobbi Snell BILL RECAPITULATION CLERK 1700 [place] [address] Nurse Practitioner Family Medicine 07/27/22 Alfie Santacruz MD [address] [place] [address] 276 [place] [address] Critical Care 07/27/22 Derek Pacheco MD [address] [place] [address] Assigned Surgical Provider 10/23/22 Linda Bhatti NP Assigned PCP 01/08/23 04/29/23 Milana Elise APRN SECURITIES CLERK Assigned PCP 09/10/23 10/10/23 Milana Elise APRN SECURITIES CLERK Assigned Pain Medication Provider 06/25/23 07/13/23 Milana Elise APRN SECURITIES CLERK Assigned PCP 04/30/23 08/11/23 Milana Elise APRN SECURITIES CLERK Assigned PCP 08/12/23 09/09/23 [place] [address] [place] [address] Assigned PCP 10/11/23 Kanu Rajan DO [address] [place] [address] Assigned Sleep Provider 05/12/24 [place] [address] [place] [address] Family Medicine 07/18/24 Kristal Gamez PA-C [address] [place] [address] Physician Proofing Machine Operator Plastic Surgery 07/18/24 Rashawn Ramirez MD 500 [place], [place] [address] Assigned Dermatology Provider 09/09/24 Karen Lorenz CHW Community Health Worker 10/17/24 Veronique Menendez, RN Lead Industrial Manufacturing Technician Primary Care - CC 10/18/24 documented as of this encounter
--- OUTSIDE RECORDS SUMMARY | 2024-11-25 11:17 | XMS_ITS | Encounter Summary ---
Author Organization [place] Address [address] [place] [address] Care Team Providers Care Gunsmith Apprentice Name Role Phone Deon Iniguez MD Primary Care Provider + [phone] Domenic Aviles MD Primary Care Provider + [phone] Deon Iniguez MD Primary Care Provider + [phone] Deon Iniguez MD Unavailable +[phone] Deon Iniguez MD Unavailable +[phone] Stevie Gilman MD Unavailable +[phone] Shelly Stinson PA-C Unavailable + [phone] Logan Lee MD Unavailable Alfie Calhoun MD Unavailable +[phone] Veronika Sommer-C Unavailable +[phone] Alfie Calhoun MD Unavailable +[phone] Debra Miller-C Unavailable Shanel Lerma MD Unavailable +[phone] Derek Pacheco MD Unavailable +[phone] Lorene Kruse LP Unavailable [phone] Alfie Calhoun MD Unavailable +[phone] No Ref-Primary, Physician Primary Care Provider Bobbi Snell NP Unavailable Alfie Santacruz MD Unavailable +[phone] Derek Pacheco MD Unavailable +[phone] Linda Bhatti BIOMATHEMATICIAN Unavailable Unavailable Arik, Milana Coyne APRN CONTACT CENTER PROFESSIONAL Unavailable Un available Hedtke, Shanel Fernandes MD Primary Care Provider +[phone] Arik, Milana Coyne APRN CONTACT CENTER PROFESSIONAL Unavailable Un available Arik, Milana Coyne APRN CONTACT CENTER PROFESSIONAL Unavailable Un available Arik, Milana Coyne APRN CONTACT CENTER PROFESSIONAL Unavailable Un available Hedtke, Shanel Fernandes MD Unavailable +[phone] Kanu Rajan DO Unavailable +[phone] HedtShanel adames MD Unavailable +[phone] Kristal Gamez PA-C Unavailable +[phone] Rashawn Ramirez MD Unavailable Shanel Lerma MD Primary Care Provider +[phone] Gerda Karen CHW Unavailable +[phone] Veronique Menendez RN Unavailable Encounter Details Date Type Department Care Team (Late st Contact Info) Description 03/21/[address] [address] [facility] Social History Tobacco Use Types Packs/Day Years Used Date Smoking Tobacco: Former Cigarettes Q uit: 06/20/1984 Smokeless Tobacco: Never Alcohol Use Standard Drinks/Week Comments No 0 (1 standard drink = 0.6 oz pur e alcohol) Sex and Gender Information Value Date Recorded Sex Assigned at Male 10/07/2018 12:43 PM CDT 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 Gender Identity Male 10/07/2018 12:43 PM CDT Sexual Orientation Straight 01/01/2021 1: 52 PM CDT documented as of this encounter Plan of Treatment Upcoming Encounters Date Type Department Care Team (Late st Contact Info) Description 12/27/2024 2:00 PM CDT Office Visit [facility] [address] [phone] Alfie Calhoun MD 5203 [place] [address] 01/01/2025 11:00 AM CDT Office Visit [facility] [address] [place] [phone] Derek Pacheco MD [address] [place], [place] [address] 01/21/2025 PRE VISIT [facility] Plastic and Reconstructive Surgery [address] [phone] Kristal Gamez PA-C [address] [place] [address] Previsit 01/21/2025 2:00 PM CDT Office Visit [facility] Surgery [address] [phone] [place] [address] [place] [address] Kristal Gamez PA-C [address] [place] [address] 02/28/2025 9:30 AM CDT Virtual Visit [facility] [address] [address] Kanu Rajan, [address] [place] [address] 10/24/2025 1:30 PM CDT Office Visit [facility] [address] [place] [address] [place] [address] [place] [address] documented as of this encounter Visit Diagnoses Not on filedocumented in this encounter Additional Health Concerns Infection Onset Date Last Indicated Resolved Time Rule Out COVID-19 12/28/2023 12/28/2023 12/29/2023 12:25 AM CDT documented as of this encounter Care Teams Gunsmith Apprentice Relationship Specialty Start Date End Date Deon Iniguez MD [address] [place] [phone] PCP - General 08/04/01 12/06/13 Domenic Aviles MD [address] [place] [phone] PCP - General Family Practice 12/07/13 12/07/13 Deon Iniguez MD [address] [place] [address] PCP - General Internal Medicine 12/08/13 07/08/22 Deon Iniguez MD [address] [place] [phone] PCP - Assigned PCP 02/12/18 08/22/18 No Ref-Primary, Physician PCP - General 07/23/22 05/23/23 [place] [address] [place] [address] PCP - General Family Medicine 05/24/23 10/15/24 [place] [address] [place] [address] PCP - General Family Medicine 10/16/24 Deon Iniguez MD [address] [place] [address] Assigned PCP 02/12/18 04/26/20 Stevie Gilman MD [address] [place] [phone] Assigned Surgical Provider 04/11/20 10/18/20 Shelly Stinson PA-C [facility] 2[address] [place] [address] Assigned PCP 05/11/20 01/17/21 [place] [address] [place] [address] Assigned PCP 04/27/20 05/10/20 Alfie Calhoun MD 5200 [place] [address] Assigned Surgical Provider 10/19/20 01/10/21 Veronika Sommer PA-C [address] [place] [address] Assigned Surgical Provider 01/11/21 04/25/21 Alfie Calhoun MD 5200 [place] [address] Dermatology 02/11/21 Debra Miller PA-C [facility] [address] [place] [address] Assigned PCP 01/18/21 03/14/21 [place] [address] [place] [address] Assigned PCP 03/15/21 01/07/23 Derek Pacheco MD 6363 [facility] 500 [place] [address] Urology 03/31/21 [place] [address] [facility] 200 [place] [address] Assigned Behavioral Health Provider 05/10/21 07/30/22 Alfie Calhoun MD 5200 [place] [address] Assigned Surgical Provider 04/26/21 10/22/22 Bobbi Snell BIOMATHEMATICIAN 1700 [place] [address] Nurse Practitioner Family Medicine 07/27/22 Alfie Santacruz MD [address] [place] [address] Critical Care 07/27/22 Derek Pacheco MD 6363 [facility] 500 [place] [address] Assigned Surgical Provider 10/23/22 Linda Bhatti, CHAPARRITA Assigned PCP 01/08/23 04/29/23 ArikMilana thomas APRN CONTACT CENTER PROFESSIONAL Assigned PCP 09/10/23 10/10/23 Arik, Milana Coyne APRN CONTACT CENTER PROFESSIONAL Assigned Pain Medication Provider 06/25/23 07/13/23 ArikMilana APRN CONTACT CENTER PROFESSIONAL Assigned PCP 04/30/23 08/11/23 ArikMilana APRN CONTACT CENTER PROFESSIONAL Assigned PCP 08/12/23 09/09/23 [place] [address] [place] [address] Assigned PCP 10/11/23 Kanu Rajan DO 606 [facility] 106 [place] [address] Assigned Sleep Provider 05/12/24 [place] [address] [place] [address] Family Medicine 07/18/24 Kristal Gamez PA-C [address] [address] [facility] Plastic Surgery 07/18/24 Rashawn Ramirez MD 500 [place] [address] Assigned Dermatology Provider 09/09/24 Karen Lorenz, DEVORAH Community Health Worker 10/17/24 Veronique Menendez, RN Lead General Supervisor Primary Care - CC 10/18/24 documented as of this encounter
--- OUTSIDE RECORDS SUMMARY | 2024-11-25 11:17 | XMS_ITS | Encounter Summary ---
Author Organization [place] Address [address] [place] [address] Care Team Providers Care Cake Inspector Name Role Phone Deon Iniguez MD Primary Care Provider + [phone] Domenic Aviles MD Primary Care Provider + [phone] Deon Iniguez MD Primary Care Provider + [phone] Deon Iniguez MD Unavailable +[phone] Deon Iniguez MD Unavailable +[phone] Stevie Gilman MD Unavailable +[phone] Shelly Stinson PA-C Unavailable + [phone] Logan Lee MD Unavailable Alfie Calhoun MD Unavailable +[phone] Veronika Sommer-C Unavailable +[phone] Alfie Calhoun MD Unavailable +[phone] Debra Miller-C Unavailable Shanel Lerma MD Unavailable +[phone] Derek Pacheco MD Unavailable +[phone] Lorene Kruse LP Unavailable [phone] Alfie Calhoun MD Unavailable +[phone] No Ref-Primary, Physician Primary Care Provider Bobbi Snell NP Unavailable Alfie Santacruz MD Unavailable +[phone] Derek Pacheco MD Unavailable +[phone] Linda Bhatti TRAINING AND DEVELOPMENT SPECIALIST Unavailable Unavailable Arik, Milana Coyne APRN RETURN AGENT AIRPORT Unavailable Un available Hedtke, Shanel Fernandes MD Primary Care Provider +[phone] Arik, Milana Coyne APRN RETURN AGENT AIRPORT Unavailable Un available Arik, Milana Coyne APRN RETURN AGENT AIRPORT Unavailable Un available Arik, Milana Coyne APRN RETURN AGENT AIRPORT Unavailable Un available Hedtke, Shanel Fernandes MD Unavailable +[phone] Kanu Rajan DO Unavailable +[phone] HedtShanel adames MD Unavailable +[phone] Kristal aGmez PA-C Unavailable +[phone] Rashawn Ramirez MD Unavailable Shanel Lerma MD Primary Care Provider +[phone] Karen Lorenz CHW Unavailable [phone] Veronique Menendez RN Unavailable Encounter Details Date Type Department Care Team (Late st Contact Info) Description 02/24/[address] [address] [facility] Social History Tobacco Use Types Packs/Day Years Used Date Smoking Tobacco: Former Cigarettes Q uit: 06/20/1984 Smokeless Tobacco: Never Alcohol Use Standard Drinks/Week Comments No 0 (1 standard drink = 0.6 oz pur e alcohol) Sex and Gender Information Value Date Recorded Sex Assigned at Male 10/07/2018 12:43 PM CDT 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 [address] [place] [phone] Derek Pacheco MD [address] [place], [place] [address] 01/21/2025 PRE VISIT [facility] Plastic and Reconstructive Surgery [address] [phone] Kristal Gamez PA-C [address] [place] [address] Previsit 01/21/2025 2:00 PM CDT Office Visit [facility] Plastic and Reconstructive Surgery [address] [phone] [place] [address] [place] [address] Kristal Gamez PA-C [address] [place] [address] 02/28/2025 9:30 AM CDT Virtual Visit [facility] Sleep Clinic [address] [address] Kanu Rajan, [address] [place] [address] 10/24/2025 1:30 PM CDT Office Visit [facility] [address] [place] [address] [place] [address] [place] [address] documented as of this encounter Visit Diagnoses Not on filedocumented in this encounter Additional Health Concerns Infection Onset Date Last Indicated Resolved Time Rule Out COVID-19 12/28/2023 12/28/2023 12/29/2023 12:25 AM CDT documented as of this encounter Care Teams Cake Inspector Relationship Specialty Start Date End Date Deon Iniguez MD [address] [place] [address] PCP - General 08/04/01 12/06/13 Domenic Aviles MD [address] [place] [phone] PCP - General Family Practice 12/07/13 12/07/13 Deon Iniguez MD [address] [place] [address] PCP - General Internal Medicine 12/08/13 07/08/22 Deon Iniguez MD [address] [place] [phone] PCP - Assigned PCP 02/12/18 08/22/18 No Ref-Primary, Physician PCP - General 07/23/22 05/23/23 [place] [address] [place] [address] PCP - General Family Medicine 05/24/23 10/15/24 [place] [address] [place] [address] PCP - General Family Medicine 10/16/24 Deon Iniguez MD [address] [place] [address] Assigned PCP 02/12/18 04/26/20 Stevie Gilman MD [address] [place] [phone] Assigned Surgical Provider 04/11/20 10/18/20 Shelly Stinson PA-C [facility] 2265 [place] [address] Assigned PCP 05/11/20 01/17/21 [place] [address] [place] [address] Assigned PCP 04/27/20 05/10/20 Alfie Calhoun MD 5200 [place] [address] Assigned Surgical Provider 10/19/20 01/10/21 Veronika Sommer PA-C [address] [place] [place] [address] Assigned Surgical Provider 01/11/21 04/25/21 Alfie Calhoun MD 5200 [place] [address] Dermatology 02/11/21 Debra Miller PA-C [facility] [address] [place] [address] Assigned PCP 01/18/21 03/14/21 [place] [address] [place] [address] Assigned PCP 03/15/21 01/07/23 Derek Pacheco MD 6363 [facility] 500 [place] [address] Urology 03/31/21 [place] [address] [facility] 200 [place] [address] Assigned Behavioral Health Provider 05/10/21 07/30/22 Alfie Calhoun MD 5200 [place] [address] Assigned Surgical Provider 04/26/21 10/22/22 Bobbi Snell TRAINING AND DEVELOPMENT SPECIALIST 1700 [place] [address] Nurse Practitioner Family Medicine 07/27/22 Alfie Santacruz MD [address] [place] [address] Critical Care 07/27/22 Derek Pacheco MD 6363 [facility] 500 [place] [address] Assigned Surgical Provider 10/23/22 Linda Bhatti, CHAPARRITA Assigned PCP 01/08/23 04/29/23 ArikMilana thomas APRN RETURN AGENT AIRPORT Assigned PCP 09/10/23 10/10/23 Arik, Milana Coyne APRN RETURN AGENT AIRPORT Assigned Pain Medication Provider 06/25/23 07/13/23 ArikMilana APRN RETURN AGENT AIRPORT Assigned PCP 04/30/23 08/11/23 ArikMilana APRN RETURN AGENT AIRPORT Assigned PCP 08/12/23 09/09/23 [place] [address] [place] [address] Assigned PCP 10/11/23 Kanu Rajan DO 606 [facility] 106 [place] [address] Assigned Sleep Provider 05/12/24 [place] [address] [place] [address] Family Medicine 07/18/24 Kristal Gamez PA-C [address] [address] Physician Digital Media Representative Plastic Surgery 07/18/24 Rashawn Ramirez MD 500 [place] [address] Assigned Dermatology Provider 09/09/24 Karen Lorenz, DEVORAH Community Health Worker 10/17/24 Veronique Menendez, RN Lead Inseamer Primary Care - CC 10/18/24 documented as of this encounter
--- OUTSIDE RECORDS SUMMARY | 2024-11-25 11:17 | XMS_ITS | Encounter Summary ---
Author Organization [place] Address [address] [place] [address] Care Team Providers Care Information Technology Security Manager Name Role Phone Deon Iniguez MD Primary Care Provider + [phone] Deon Iniguez MD Unavailable +[phone] Deon Iniguez MD Unavailable +[phone] Stevie Gilman MD Unavailable +[phone] Shelly Stinson PA-C Unavailable Logan Lee MD Unavailable Alfie Calhoun MD Unavailable [phone] Veronika Sommer-C Unavailable Alfie Calhoun MD Unavailable [phone] Debra Miller-C Unavailable Shanel Lerma MD Unavailable +[phone] Derek Pacheco MD Unavailable Lorene Kruse LP Unavailable [phone] Alfie Calhoun MD Unavailable [phone] No Ref-Primary, Physician Primary Care Provider Bobbi Snell NP Unavailable Alfie Santacruz MD Unavailable Derek Pacheco MD Unavailable Linda Bhatti RAT BREEDER Unavailable Unavailable Arik, Milana Coyne APRN BLOCK CABLEMAN Unavailable Un available HedtkeShanel MD Primary Care Provider [phone] Arik, Milana Sarkarhele WOOLEN TESTER BLOCK CABLEMAN Unavailable Un available Arik, Milana Sarkardany STOVER BLOCK CABLEMAN Unavailable Un available Arik, Milana Sarkarhele WOOLEN TESTER BLOCK CABLEMAN Unavailable Un available HedtkeShanel MD Unavailable +[phone] Satinder Kanu Li DOMINGUEZ Unavailable +[phone] HedtShanel adames MD Unavailable +[phone] Kristal Gamez PA-C Unavailable +[phone] Rashawn Ramirez MD Unavailable Shanel Lerma MD Primary Care Provider +[phone] Karen Lorenz CHW Unavailable [phone] Veronique Menendez RN Unavailable Encounter Details Date Type Department Care Team (Late st Contact Info) Description 06/08/2017 [facility] Medical Advice [facility] [address] [phone] Deon Iniguez MD [address] [address] Social History Tobacco Use Types Packs/Day Years Used Date Smoking Tobacco: Former Cigarettes 0 06/20/1974 - 06/20/1984 Smokeless Tobacco: Never Alcohol Use Standard Drinks/Week Comments No 0 (1 standard drink = 0.6 oz pur e alcohol) Sex and Gender Information Value Date Recorded Sex Assigned at Male 10/07/2018 12:43 PM CDT 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 [address] [place] [phone] Derek Pacheco MD [address] [place], [place] [address] 01/21/2025 PRE VISIT [facility] Plastic and Reconstructive Surgery [address] [phone] Kristal Gamez PA-C [address] [place] [address] Previsit 01/21/2025 2:00 PM CDT Office Visit [facility] Plastic and Reconstructive Surgery [address] [phone] [place] [address] [place] [address] Kristal Gamez PA-C [address] [place] [address] 02/28/2025 9:30 AM CDT Virtual Visit [facility] [address] [phone] Kanu Rajan, DO [address] [place] [address] 10/24/2025 1:30 PM CDT Office Visit [facility] [address] [place] [address] [place] [address] [place] [address] documented as of this encounter Visit Diagnoses Not on filedocumented in this encounter Additional Health Concerns Infection Onset Date Last Indicated Resolved Time Rule Out COVID-19 12/28/2023 12/28/2023 12/29/2023 12:25 AM CDT documented as of this encounter Care Teams Information Technology Security Manager Relationship Specialty Start Date End Date Deon Iniguez MD [address] [place] [phone] PCP - General Internal Medicine 12/08/13 07/08/22 Deon Iniguez MD [address] [place] [phone] PCP - Assigned PCP 02/12/18 08/22/18 No Ref-Primary, Physician PCP - General 07/23/22 05/23/23 [place] [address] [place] [address] PCP - General Family Medicine 05/24/23 10/15/24 [place] [address] [place] [address] PCP - General Family Medicine 10/16/24 Deon Iniguez MD [address] [place] [phone] Assigned PCP 02/12/18 04/26/20 Stevie Gilman MD [address] [place] [address] Assigned Surgical Provider 04/11/20 10/18/20 Shelly Stinson PA-C [facility] [address] [facility] [place] [address] Assigned PCP 05/11/20 01/17/21 [place] [address] [place] [address] Assigned PCP 04/27/20 05/10/20 Alfie Calhoun MD 5200 [place] [address] Assigned Surgical Provider 10/19/20 01/10/21 Veronika Sommer PA-C [address] [place] [place] [address] Assigned Surgical Provider 01/11/21 04/25/21 Alfie Calhoun MD 5200 [place] [address] Dermatology 02/11/21 Debra Miller PA-C [facility] [address] [place] [address] Assigned PCP 01/18/21 03/14/21 [place] [address] [place] [address] Assigned PCP 03/15/21 01/07/23 Derek Pacheco MD [address] [place] [address] Urology 03/31/[address] [place] [address] [facility] [address] [place] [address] Assigned Behavioral Health Provider 05/10/21 07/30/22 Alfie Calhoun MD 5200 [place] [address] Assigned Surgical Provider 04/26/21 10/22/22 Bobbi Snell NP 1700 [place] [address] Nurse Practitioner Family Medicine 07/27/22 Alfie Santacruz MD [address] [place] [address] Critical Care 07/27/22 Derek Pacheco MD [address] [place] [address] Assigned Surgical Provider 10/23/22 Linda Bhatti NP Assigned PCP 01/08/23 04/29/23 Milana Elise APRN BLOCK CABLEMAN Assigned PCP 09/10/23 10/10/23 Milana Elise APRN BLOCK CABLEMAN Assigned Pain Medication Provider 06/25/23 07/13/23 Milana Elise APRN BLOCK CABLEMAN Assigned PCP 04/30/23 08/11/23 Milana Elise APRN BLOCK CABLEMAN Assigned PCP 08/12/23 09/09/23 [place] [address] [place] [address] Assigned PCP 10/11/23 Kanu Rajan DO [address] [place] [address] Assigned Sleep Provider 05/12/24 [place] [address] [place] [address] Family Medicine 07/18/24 Kristal Gamez PA-C [address] [place] [address] Physician Non Food Receiving Clerk Plastic Surgery 07/18/24 Rashawn Ramirez MD [address] [place] [phone] Assigned Dermatology Provider 09/09/24 Karen Lorenz CHW Community Health Worker 10/17/24 Veronique Menendez, RN Lead Risk Analyst Primary Care - CC 10/18/24 documented as of this encounter
--- OUTSIDE RECORDS SUMMARY | 2024-11-25 11:17 | XMS_ITS | Encounter Summary ---
Author Organization [place] Address [address] [place] [address] Care Team Providers Care Grades 7 And 8 Teacher Name Role Phone Deon Iniguez MD Primary Care Provider + [phone] Domenic Aviles MD Primary Care Provider + [phone] Deon Iniguez MD Primary Care Provider + [phone] Deon Iniguez MD Unavailable +[phone] Deon Iniguez MD Unavailable +[phone] Stevie Gilman MD Unavailable +[phone] Shelly Stinson PA-C Unavailable + [phone] Logan Lee MD Unavailable Alfie Calhoun MD Unavailable +[phone] Veronika Sommer-C Unavailable +[phone] Alfie Calhoun MD Unavailable +[phone] Debra Miller-C Unavailable Shanel Lerma MD Unavailable +[phone] Derek Pacheco MD Unavailable +[phone] Lorene Kruse LP Unavailable +[phone] Alfie Calhoun MD Unavailable +[phone] No Ref-Primary, Physician Primary Care Provider Bobbi Snell NP Unavailable Alfie Santacruz MD Unavailable +[phone] Derek Pacheco MD Unavailable +[phone] Linda Bhatti RAVELER Unavailable Unavailable Arik, Mliana Coyne APRN INTELLECTUAL PROPERTY COUNSEL Unavailable Un available Hedtke, Shanel Fernandes MD Primary Care Provider +[phone] Arik, Milana Coyne APRN INTELLECTUAL PROPERTY COUNSEL Unavailable Un available Arik, Milana Coyne APRN INTELLECTUAL PROPERTY COUNSEL Unavailable Un available Arik, Milana Coyne APRN INTELLECTUAL PROPERTY COUNSEL Unavailable Un available Hedtke, Shanel Fernandes MD Unavailable +[phone] Kanu Rajan DO Unavailable +[phone] HedtShanel adames MD Unavailable +[phone] Kristal Gamez PA-C Unavailable +[phone] Rashawn Ramirez MD Unavailable Shanel Lerma MD Primary Care Provider +[phone] Karen Lorenz CHW Unavailable +[phone] Veronique Menendez RN Unavailable Encounter Details Date Type Department Care Team (Late st Contact Info) Description 01/23/[address] [address] [facility] Social History Tobacco Use Types Packs/Day Years Used Date Smoking Tobacco: Former Cigarettes Q uit: 06/20/1984 Smokeless Tobacco: Never Alcohol Use Standard Drinks/Week Comments No 0 (1 standard drink = 0.6 oz pur e alcohol) Sex and Gender Information Value Date Recorded Sex Assigned at Male 10/07/2018 12:43 PM CDT 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 Gender Identity Male 10/07/2018 12:43 PM CDT Sexual Orientation Straight 01/01/2021 1: 52 PM CDT documented as of this encounter Plan of Treatment Upcoming Encounters Date Type Department Care Team (Late st Contact Info) Description 12/27/2024 2:00 PM CDT Office Visit [facility] [address] [phone] Alfie Calhoun MD 5201 [place] [address] 01/01/2025 11:00 AM CDT Office Visit [facility] Urology [facility] [address] [place] [phone] Derek Pacheco MD [address] [place], [place] [address] 01/21/2025 PRE VISIT [facility] Plastic and Reconstructive Surgery [address] [phone] Kristal Gamez PA-C [address] [place] [address] Previsit 01/21/2025 2:00 PM CDT Office Visit [facility] Plastic and Reconstructive Surgery [address] [phone] [place] [address] [place] [address] Kristal Gamez PA-C [address] [place] [address] 02/28/2025 9:30 AM CDT Virtual Visit [facility] Sleep Clinic [address] [phone] Kanu Rajan, [address] [place] [address] 10/24/2025 1:30 PM CDT Office Visit [facility] [address] [place] [address] [place] [address] [place] [address] documented as of this encounter Visit Diagnoses Not on filedocumented in this encounter Additional Health Concerns Infection Onset Date Last Indicated Resolved Time Rule Out COVID-19 12/28/2023 12/28/2023 12/29/2023 12:25 AM CDT documented as of this encounter Care Teams Grades 7 And 8 Teacher Relationship Specialty Start Date End Date Deon Iniguez MD [address] [place] [phone] PCP - General 08/04/01 12/06/13 Domenic Aviles MD [address] [place] [phone] PCP - General Family Practice 12/07/13 12/07/13 Deon Iniguez MD [address] [place] [address] PCP - General Internal Medicine 12/08/13 07/08/22 Deon Iniguez MD [address] [place] [phone] PCP - Assigned PCP 02/12/18 08/22/18 No Ref-Primary, Physician PCP - General 07/23/22 05/23/23 [place] [address] [place] [address] PCP - General Family Medicine 05/24/23 10/15/24 [place] [address] [place] [address] PCP - General Family Medicine 10/16/24 Deon Iniguez MD [address] [place] [phone] Assigned PCP 02/12/18 04/26/20 Stevie Gilman MD [address] [place] [phone] Assigned Surgical Provider 04/11/20 10/18/20 Shelly Stinson PA-C [facility] 2[address] [place] [address] Assigned PCP 05/11/20 01/17/21 [place] [address] [place] [address] Assigned PCP 04/27/20 05/10/20 Alfie Calhoun MD [address] [place] [address] Assigned Surgical Provider 10/19/20 01/10/21 Veronika Sommer PA-C [address] [place] [address] Assigned Surgical Provider 01/11/21 04/25/21 Alfie Calhoun MD 5200 [place] [address] Dermatology 02/11/21 Debra Miller PA-C [facility] [address] [place] [address] Assigned PCP 01/18/21 03/14/21 [place] [address] [place] [address] Assigned PCP 03/15/21 01/07/23 Derek Pacheco MD 6363 [facility] 500 [place] [address] Urology 03/31/21 [place] [address] [facility] 200 [place] [address] Assigned Behavioral Health Provider 05/10/21 07/30/22 Alfie Calhoun MD 5200 [place] [address] Assigned Surgical Provider 04/26/21 10/22/22 Bobbi Snell RAVELER 1700 [place] [address] Nurse Practitioner Family Medicine 07/27/22 Alfie Santacruz MD [address] [place] [address] Critical Care 07/27/22 Derke Pacheco MD 6363 [facility] 500 [place] [address] Assigned Surgical Provider 10/23/22 Linda Bhatti, CHAPARRITA Assigned PCP 01/08/23 04/29/23 ArikMilana thomas APRN INTELLECTUAL PROPERTY COUNSEL Assigned PCP 09/10/23 10/10/23 Arik, Milana Coyne APRN INTELLECTUAL PROPERTY COUNSEL Assigned Pain Medication Provider 06/25/23 07/13/23 ArikMilana APRN INTELLECTUAL PROPERTY COUNSEL Assigned PCP 04/30/23 08/11/23 ArikMilana APRN INTELLECTUAL PROPERTY COUNSEL Assigned PCP 08/12/23 09/09/23 [place] [address] [place] [address] Assigned PCP 10/11/23 Kanu Rajan DO 606 [facility] 106 [place] [address] Assigned Sleep Provider 05/12/24 [place] [address] [place] [address] Family Medicine 07/18/24 Kristal Gamez PA-C [address] [address] Physician Community Reinvestment Act Officer Plastic Surgery 07/18/24 Rashawn Ramirez MD 500 [place] [address] Assigned Dermatology Provider 09/09/24 Karen Lorenz, DEVORAH Community Health Worker 10/17/24 Veronique Menendez, RN Lead Hearth Feeder Primary Care - CC 10/18/24 documented as of this encounter
--- OUTSIDE RECORDS SUMMARY | 2024-11-25 11:18 | XMS_ITS | Encounter Summary ---
Author Organization [place] Address [address] [place] [address] Care Team Providers Care Healthcare Liaison Name Role Phone Deon Iniguez MD Primary Care Provider + [phone] Shelly Stinson PA-C Unavailable + [phone] Alfie Calhoun MD Unavailable +[phone] Veronika Sommer PA-C Unavailable +[phone] Alfie Calhoun MD Unavailable +[phone] Debra Miller PA-C Unavailable Shanel Lerma MD Unavailable +[phone] Derek Pacheco MD Unavailable +[phone] Lorene Kruse LP Unavailable Alfie Calhoun MD Unavailable +[phone] No Ref-Primary, Physician Primary Care Provider Bobbi Snell NP Unavailable Alfie Santacruz MD Unavailable +[phone] Derek Pacheco MD Unavailable +[phone] Linda Bhatti NP Unavailable Unavailable ArikMilana APRN SHIFT SUPERVISOR Unavailable Un available Shanel Lerma MD Primary Care Provider +[phone] Milana Elise APRN SHIFT SUPERVISOR Unavailable Un available ArikMilana APRN SHIFT SUPERVISOR Unavailable Un available Arik, Milana Dorethadany STOVER SHIFT SUPERVISOR Unavailable Un available Shanel Lerma MD Unavailable +[phone] Kanu Rajan DO Unavailable +[phone] Shanel Lerma MD Unavailable +[phone] Kristal Gamez PA-C Unavailable +[phone] Rashawn Ramirez MD Unavailable Shanel Lerma MD Primary Care Provider +[phone] GerdaAudrako CHW Unavailable [phone] Veronique Menendez RN Unavailable Encounter Details Date Type Department Care Team (Late st Contact Info) Description 12/12/2020 My[facility] Medical Advice [address] [address] Mary Jane Stout Social History Tobacco Use Types Packs/Day Years Used Date Smoking Tobacco: Former Cigarettes 0.5 10 0 06/20/1974 - 06/20/1984 Smokeless Tobacco: Never Alcohol Use Standard Drinks/Week Comments No 0 (1 standard drink = 0.6 oz pur e alcohol) PHQ-2 Answer Date Recorded PHQ-2 Score 0 08/28/2020 Sex and Gender Information Value Date Recorded Sex Assigned at Male 10/07/2018 12:43 PM CDT 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 No / Unsure 12/10/2020 9:54 AM CDT documented as of this encounter Miscellaneous Notes * Telephone Encounter - Shanel Lerma MD - 12/12/2020 1:53 PM CDT Dottiery. I saw him in 2017 for a workmen's comp claim only. I haven't followed his DDD at all. He would need a visit with a provider in order to complete this form. JH * Telephone Encounter - Mary Jane Stout - 12/12/2020 10:56 AM CDT Please see patients message. Mary Jane Stout/ Machine Room Engineer ` documented in this encounter Plan of Treatment Upcoming Encounters Date Type Department Care Team (Late st Contact Info) Description 12/27/2024 2:00 PM CDT Office Visit [address] [phone] Alfie Calhoun MD [facility]0 [place] [address] 01/01/2025 11:00 AM CDT Office Visit [facility] Urology [facility] [address] [place] [phone] Derek Pacheco MD [address] [place] [address] 01/21/[address] [facility] Pl[facility] Clinic [address] [phone] Kristal Gamez PA-C [address] [place] [address] Previsit 01/21/2025 2:00 PM CDT Office Visit [facility] Plastic and Reconstructive Surgery [address] [phone] [place] [address] [place] [address] Kristal Gamez PA-C [address] [address] 02/28/2025 9:30 AM CDT Virtual Visit [facility] Sleep [facility] [address] [facility] 202 [place] [phone] Kanu Rajan, DO [address] [facility] 106 [place] [address] 10/24/2025 1:30 PM CDT Office Visit [facility] [address] [place] [phone] Shanel Lerma MD [address] [place] [address] documented as of this encounter Visit Diagnoses Not on filedocumented in this encounter Additional Health Concerns Infection Onset Date Last Indicated Resolved Time Rule Out COVID-19 12/28/2023 12/28/2023 12/29/2023 12:25 AM CDT Assessment Noted Time PHQ-9 Depression Total Score: 0 03/15/20 18 7:16 AM CDT documented as of this encounter Care Teams Healthcare Liaison Relationship Specialty Start Date End Date Deon Iniguez MD [address] [phone] PCP - General Internal Medicine 12/08/13 07/08/22 No Ref-Primary, Physician PCP - General 07/23/22 05/23/23 [place] [address] [place] [address] PCP - General Family Medicine 05/24/23 10/15/24 [place] [address] [place] [address] PCP - General Family Medicine 10/16/24 Shelly Stinson PA-C [facility] 2265 [place] [address] Assigned PCP 05/11/20 01/17/21 Alfie Calhoun MD 5200 [place] [address] Assigned Surgical Provider 10/19/20 01/10/21 Veronika Sommer PA-C [address] [place] [place] [address] Assigned Surgical Provider 01/11/21 04/25/21 Alfie Calhoun MD 5200 [place] [address] Dermatology 02/11/21 Debra Miller PA-C [facility] [address] [place] [address] Assigned PCP 01/18/21 03/14/21 [place] [address] [place] [address] Assigned PCP 03/15/21 01/07/23 Derek Pacheco MD [address] [place] [address] Urology 03/31/21 [place] [address] [facility] [address] 200 [place] [address] Assigned Behavioral Health Provider 05/10/21 07/30/22 Alfie Calhoun MD 5200 [place] [address] Assigned Surgical Provider 04/26/21 10/22/22 Bobbi Snell DOG OBEDIENCE INSTRUCTOR 1700 [place] [address] Nurse Practitioner Family Medicine 07/27/22 Alfie Santacruz MD [address] [place] [address] Critical Care 07/27/22 Derek Pacheco MD 6363 [facility] [address] [place] [address] Assigned Surgical Provider 10/23/22 Linda Bhatti, CHAPARRITA Assigned PCP 01/08/23 04/29/23 Milana Elise APRN SHIFT SUPERVISOR Assigned PCP 09/10/23 10/10/23 Milana Elise APRN SHIFT SUPERVISOR Assigned Pain Medication Provider 06/25/23 07/13/23 Milana Elise APRN SHIFT SUPERVISOR Assigned PCP 04/30/23 08/11/23 Milana Elise APRN SHIFT SUPERVISOR Assigned PCP 08/12/23 09/09/23 [place] [address] [place] [address] Assigned PCP 10/11/23 Kanu Rajan DO [address] [facility] 106 [place] [address] Assigned Sleep Provider 05/12/24 [place] [address] [place] [address] Family Medicine 07/18/24 Kristal Gamez PA-C [address] [address] Physician Adult Education Professional Plastic Surgery 07/18/24 Rashawn Ramirez MD 500 [place], [place] [address] Assigned Dermatology Provider 09/09/24 Karen Lorenz CHW Community Health Worker 10/17/24 Veronique Menendez, RN Lead Linux Vmware Administrator Primary Care - CC 10/18/24 documented as of this encounter
--- OUTSIDE RECORDS SUMMARY | 2024-11-25 11:18 | XMS_ITS | Encounter Summary ---
Author Organization [place] Address [address] [place] [address] Care Team Providers Care Manifest Clerk Name Role Phone Deon Iniguez MD Primary Care Provider + [phone] Domenic Aviles MD Primary Care Provider + [phone] Deon Iniguez MD Primary Care Provider + [phone] Deon Iniguez MD Unavailable +[phone] Deon Iniguez MD Unavailable +[phone] Stevie Gilman MD Unavailable +[phone] Shelly Stinson PA-C Unavailable + [phone] Logan Lee MD Unavailable Alfie Calhoun MD Unavailable +[phone] Veronika Sommer-C Unavailable +[phone] Alfie Calhoun MD Unavailable +[phone] Debra Miller-C Unavailable Shanel Lerma MD Unavailable +[phone] Derek Pacheco MD Unavailable +[phone] Lorene Kruse LP Unavailable [phone] Alfie Calhoun MD Unavailable +[phone] No Ref-Primary, Physician Primary Care Provider Bobbi Snell NP Unavailable Alfie Santacruz MD Unavailable +[phone] Derek Pacheco MD Unavailable +[phone] Linda Bhatti UTILITIES ESTIMATOR AND DRAFTER Unavailable Unavailable Arik, Milana Coyne APRN SQL REPORT ANALYST Unavailable Un available Hedtke, Shanel Fernandes MD Primary Care Provider +[phone] Arik, Milana Coyne APRN SQL REPORT ANALYST Unavailable Un available Arik, Milana Coyne APRN SQL REPORT ANALYST Unavailable Un available Arik, Milana Coyne APRN SQL REPORT ANALYST Unavailable Un available Hedtke, Shanel Fernandes MD Unavailable +[phone] Kanu Rajan DO Unavailable +[phone] HedtShanel adames MD Unavailable +[phone] Kristal Gamez PA-C Unavailable +[phone] Rashawn Ramirez MD Unavailable Shanel Lerma MD Primary Care Provider +[phone] Gerda Karen CHW Unavailable [phone] Veronique Menendez RN Unavailable Encounter Details Date Type Department Care Team (Late st Contact Info) Description 04/12/[address] [phone] [facility] Social History Tobacco Use Types Packs/Day Years Used Date Smoking Tobacco: Former Cigarettes Q uit: 06/20/1984 Smokeless Tobacco: Never Alcohol Use Standard Drinks/Week Comments No 0 (1 standard drink = 0.6 oz pur e alcohol) Sex and Gender Information Value Date Recorded Sex Assigned at Male 10/07/2018 12:43 PM CDT 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 Gender Identity Male 10/07/2018 12:43 PM CDT Sexual Orientation Straight 01/01/2021 1: 52 PM CDT documented as of this encounter Plan of Treatment Upcoming Encounters Date Type Department Care Team (Late st Contact Info) Description 12/27/2024 2:00 PM CDT Office Visit [facility] [address] [phone] Alfie Calhoun MD 5201 [place] [address] 01/01/2025 11:00 AM CDT Office Visit [facility] Urology [facility] [address] [place] [phone] Derek Pacheco MD [address] [place], [place] [address] 01/21/2025 PRE VISIT [facility] Plastic and Reconstructive Surgery [address] [phone] Kristal Gamez PA-C [address] [place] [address] Previsit 01/21/2025 2:00 PM CDT Office Visit [facility] Plastic and Reconstructive Surgery [address] [phone] [place] [address] [place] [address] Kristal Gamez PA-C [address] [place] [address] 02/28/2025 9:30 AM CDT Virtual Visit [facility] Sleep Clinic [address] [address] Kanu Rajan, [address] [place] [address] 10/24/2025 1:30 PM CDT Office Visit [facility] [address] [place] [address] [place] [address] [place] [address] documented as of this encounter Visit Diagnoses Not on filedocumented in this encounter Additional Health Concerns Infection Onset Date Last Indicated Resolved Time Rule Out COVID-19 12/28/2023 12/28/2023 12/29/2023 12:25 AM CDT documented as of this encounter Care Teams Manifest Clerk Relationship Specialty Start Date End Date Deon Iniguez MD [address] [place] [address] PCP - General 08/04/01 12/06/13 Domenic Aviles MD [address] [place] [phone] PCP - General Family Practice 12/07/13 12/07/13 Deon Iniguez MD [address] [place] [address] PCP - General Internal Medicine 12/08/13 07/08/22 Deon Iniguez MD [address] [place] [phone] PCP - Assigned PCP 02/12/18 08/22/18 No Ref-Primary, Physician PCP - General 07/23/22 05/23/23 [place] [address] [place] [address] PCP - General Family Medicine 05/24/23 10/15/24 [place] [address] [place] [address] PCP - General Family Medicine 10/16/24 Deon Iniguez MD [address] [place] [address] Assigned PCP 02/12/18 04/26/20 Stevie Gilman MD [address] [place] [phone] Assigned Surgical Provider 04/11/20 10/18/20 Shelly Stinson PA-C [facility] 2265 [place] [address] Assigned PCP 05/11/20 01/17/21 [place] [address] [place] [address] Assigned PCP 04/27/20 05/10/20 Alfie Calhoun MD 5200 [place] [address] Assigned Surgical Provider 10/19/20 01/10/21 Veronika Sommer PA-C [address] [place] [place] [address] Assigned Surgical Provider 01/11/21 04/25/21 Alfie Calhoun MD 5200 [place] [address] Dermatology 02/11/21 Debra Miller PA-C [facility] [address] [place] [address] Assigned PCP 01/18/21 03/14/21 [place] [address] [place] [address] Assigned PCP 03/15/21 01/07/23 Derek Pacehco MD 6363 [facility] 500 [place] [address] Urology 03/31/21 [place] [address] [facility] 200 [place] [address] Assigned Behavioral Health Provider 05/10/21 07/30/22 Alfie Calhoun MD 5200 [place] [address] Assigned Surgical Provider 04/26/21 10/22/22 Bobbi Snell UTILITIES ESTIMATOR AND DRAFTER 1700 [place] [address] Nurse Practitioner Family Medicine 07/27/22 Alfie Santacruz MD [address] [place] [address] Critical Care 07/27/22 Derek Pacheco MD 6363 [facility] 500 [place] [address] Assigned Surgical Provider 10/23/22 Linda Bhatti, CHAPARRITA Assigned PCP 01/08/23 04/29/23 ArikMilana thomas APRN SQL REPORT ANALYST Assigned PCP 09/10/23 10/10/23 Arik, Milana Coyne APRN SQL REPORT ANALYST Assigned Pain Medication Provider 06/25/23 07/13/23 ArikMilana APRN SQL REPORT ANALYST Assigned PCP 04/30/23 08/11/23 ArikMilana APRN SQL REPORT ANALYST Assigned PCP 08/12/23 09/09/23 [place] [address] [place] [address] Assigned PCP 10/11/23 Kanu Rajan DO 606 [facility] 106 [place] [address] Assigned Sleep Provider 05/12/24 [place] [address] [place] [address] Family Medicine 07/18/24 Kristal Gamez PA-C [address] [address] Physician Departmental Shipping Clerk Plastic Surgery 07/18/24 Rashawn Ramirez MD 500 [place] [address] Assigned Dermatology Provider 09/09/24 Karen Lorenz, DEVORAH Community Health Worker 10/17/24 Veronique Menendez, RN Lead Breast Worker Primary Care - CC 10/18/24 documented as of this encounter
--- OUTSIDE RECORDS SUMMARY | 2024-11-25 11:18 | XMS_ITS ---
Care Plan Created on: November 25, 2024 MarySeth guan Johnny : 1960 Sex: Male Author Organization [facility] Address [address] [place] [address] Care Team Providers Care Insert Operator Name Role Phone CurryAlfie fish MD Unavailable Derek Pacheco MD Unavailable Bobbi Snell NP Unavailable Alfie Santacruz MD Unavailable [phone] Derek Pacheco MD Unavailable Shanel Lerma MD Unavailable [phone] Kanu Rajan DO Unavailable [phone] Shanel Lerma MD Unavailable Kristal Gamez PA-C Unavailable Rashawn Ramirez MD Unavailable Shanel Lerma MD Primary Care Provider [phone] Veronique Menendez RN Unavailable Active Problems Problem Noted Date Diagnosed Date Tinea cruris 10/16/2024 Morbid obesity 10/16/2024 Obstructive sleep apnea syndrome 10/16/2024 Class 2 severe obesity due t o excess calories with serious comorbidity in adult 01/05/2024 Facet arthritis of lumbar region 07/23/2022 Degeneration of lumbar intervertebral disc 06/02 Colon adenoma 09/16/2020 Essential hypertension 01/18/2019 Chronic pain syndrome 05/27/2017 Left shoulder pain, unspecified chronicity 04/16 Rotator cuff syndrome, left 04/01/2017 Low back pain without sciatica, bilateral 2014 History of basal cell carcinoma 07/20/2014 Overview (07/20/2014): Eyelid, Mohs 06/2014 Genitofemoral neuralgia - Left 01/15/2013 Allergy to cats 07/20/2012 Prostate cancer - Dr. Stevie Gilman - urology 0 11/30/2010 Overview (09/12/2014): Dr. Gilman Degaralix 11/2010 -> developed abdominal wall swelling. Started on Casadex 01/2011, as well as Lupron Prostatectomy 02/2011 Hypersensitivity to benzodiazepines, antihistami adriana 11/30/2010 Mixed Hyperlipidemia LDL goal <130 09/23/2010 Overview (02/22/2011): CRP high 01/28 --> statin advised Intermittent asthma without complication 005 Overview (04/19/2012): Last symptom flare 2008 with H1N1 infection. Last used inhaler regularly about 1999 Bad reaction to cats, exposed a few times weekly on job. Resolved Problems Problem Noted Date Diagnosed Date Resolved Date Morbid obesity 03/02/2021 01/05/2024 Intertrigo 07/13/2018 01/16/2021 Obesity 05/30/2017 03/02/2021 Acute pain of left shoulder 01/28/2017 04/01/2017 Advanced directives, counseling/discussion 10/25/2016 05/31/2023 Overview (10/25/2016): Advance Care Planning 10/25/2016: ACP Review of Chart / Resources Provided: Reviewed chart for advance care plan. Seth Johnny Hernandez has been provided information and resources to begin or update their advance care plan. Added by April Sellers Elevated blood pressure read ing without diagnosis of hypertension 11/12/2015 04/01/2017 Pain in joint, pelvic region and thigh 12/04/2012 04/01/2017 Nonallopathic lesion of sacral region 12/04/2012 04/01/2017 Overview (03/21/2015): Problem list name updated by automated process. Provider to review Erectile dysfunction 07/04/2011 021 Overview (07/04/2011): After prostatectomy 02/28 Additional Health Concerns Active Problems Noted Date Diagnosed Date Health Maintenance Due or Overdue 10/19/2024 Resources 10/19/2024 Patient does not have a valid Health Care Direct marciano 10/19/2024 Goals Goal Patient Goal Type Associated Problems [...] clinic with 24/7 after hours services available. Fun House Operator will remain available as needed. Resources for Housekeeping/Chore services and Patient/Caregiver support. Care Plan Resources 0%(10/19/2024 11:10 AM CDT) Veronique Escalera, ÁLVARO Note: Barriers: Limited mobility; Financial limitations; Provider availability-wait time to complete appointments. Strengths: Motivated; Good familial support from spouse; Agreeable to Care Coordination. Patient expressed understanding of goal: Yes Action steps to achieve this goal: 1. I will review the resources provided by Care Coordination. (Ongoing) 2. I will contact the resources with any questions. I will contact my Fun House Operator if additional resources are needed or desired. 3. I will contact my care team with questions, concerns or support needs. I will use the clinic as a resource and I understand I can contact my clinic with 24/7 after hours services available. Fun House Operator will remain available as needed. Complete Health Care Directive Care Plan Patient does not have a valid Health Care Directive 0%(10/19/2024 11:12 AM CDT) Veronique Escalera, ÁLVARO Note: Barriers: Limited mobility; Financial limitations; Provider availability-wait time to complete appointments. Strengths: Motivated; Good familial support from spouse; Agreeable to Care Coordination. Patient expressed understanding of goal: Yes Action steps to achieve this goal: 1. I will review the resource for Elizabeth Dejesus (department within [facility] that can assist with completing Advance Care Planning documents. 2. [facility] with any questions or when I am ready to complete my Advance Care Planning documents. 3. I will contact my care team with questions, concerns or support needs. I will use the clinic as a resource and I understand I can contact my clinic with 24/7 after hours services available. Fun House Operator will remain available as needed. Interventions Care Plan Interventions Intervention Entry Date Outcome Patient to provide a copy of their Health Care Directive to their care team during an office visit or through email to [facility] 10/19/2024 Patient to complete and sign a Health Care Directive in the presence of two witnesses who are not their health care agents, or have it notarized with matching dates 10/19/2024 Provide resources for the ACP process including [facility] website and/or phone number 10/19/2024 General Task - please update text 10/19/2024 Related Goals and Interventions Goal Associated Intervent ions Resources for Housekeeping/C hore services and Patient/Caregiver support. General Task - please update text Complete Health Care Directive Patient t o provide a copy of their Health Care Directive to their care team during an office visit or through email to [facility]; Patient to complete and sign a Health Care Directive in the presence of two witnesses who are not their health care agents, or have it notarized with matching dates; Provide resources for the ACP process including [facility] website and/or phone number
--- OUTSIDE RECORDS SUMMARY | 2024-11-25 11:18 | XMS_ITS | Encounter Summary ---
Author Organization [facility] Address [facility] [address] [place] [address] Care Team Providers Care Armature Tester Name Role Phone CurryAlfie fish MD Unavailable Derek Pacheco MD Unavailable Bobbi Snell NP Unavailable Alfie Santacruz MD Unavailable [phone] Derek Pacheco MD Unavailable Shanel Lerma MD Primary Care Provider [phone] Shanel Lerma MD Unavailable Kanu Rajan DO Unavailable [phone] Shanel Lerma MD Unavailable [phone] Kristal Gamez PA-C Unavailable [phone] Rashawn Ramirez MD Unavailable Shanel Lerma MD Primary Care Provider Karen Lorenz Unavailable [phone] Veronique Menendez RN Unavailable Encounter Details Date Type Department Care Team (Late st Contact Info) Description 07/04/2024 MyC Medical Advice [facility] [place] [address] [facility] [facility] [address] [place] [address] Senia Camacho Social History Tobacco Use Types Packs/Day Years Used Date Smoking Tobacco: Former Cigarettes 0.5 10 0 06/20/1974 - 06/20/1984 Passive Smoke Exposure: Past Smokeless Tobacco: Never Alcohol Use Standard Drinks/Week Comments No 0 (1 standard drink = 0.6 oz pur e alcohol) Social Connection and Isolation Panel [NHANES] A nswer Date Recorded Frequency of Communication with Friends and Fami ly Not on file 10/17/2023 How often do you get together with friends or re latives? Once a week 10/17/2023 Attends Cheondoism Services Not on file 10/16 Active Member of Clubs or Organizations Not on f ile 10/17/2023 Attends Club or Organization Meetings Not on kat e 10/17/2023 Marital Status Not on file 10/17/2023 AUDIT-C Answer Date Recorded Q1: How often do you have a drink containing alc ohol? Monthly or less 05/27/2023 Q2: How many drinks containi ng alcohol do you have on a typical day when you are drinking? 1 or 2 05/27/2023 Q3: How often do you have si x or more drinks on one occasion? Never 05/27/2023 PHQ-2 Answer Date Recorded PHQ-2 Score 0 04/12/2024 [facility] Occupat ional Health - Occupational Stress Questionnaire Answer Date Recorded Do you feel stress - tense, restless, nervous, or anxious, or unable to sleep at night because your mind is troubled all the time - these days? Not at all 10/17/2023 Exercise Vital Sign Answer Date Recorde d On average, how many days pe r week do you engage in moderate to strenuous exercise (like a brisk walk)? 0 days 10/17/2023 On average, how many minutes do you engage in exercise at this level? 0 min 10/17/2023 Adolescent Education Answer Date Record ed Getting School Help Needed Not on file 04/03 Food Insecurity Answer Date Recorded Within the past 12 months, d id you worry that your food would run out before you got money to buy more? No 10/17/2023 Within the past 12 months, d id the food you bought just not last and you didn t have money to get more? No 10/17/2023 Housing Stability Answer Date Recorded Do you have housing? (Housin g is defined as stable permanent housing and does not include staying outside in a car, in a tent, in an abandoned building, in an overnight fpc, or couch-surfing.) Yes 10/17/2023 Are you worried about losing your housing? No 10/17/2023 Financial Resource Strain Answer Date R ecorded Within the past 12 months, h ave you or your family members you live with been unable to get utilities (heat, electricity) when it was really needed? No 10/17/2023 Transportation Needs Answer Date Record ed Within the past 12 months, h as lack of transportation kept you from medical appointments, getting your medicines, non-medical meetings or appointments, work, or from getting things that you need? No 10/17/2023 Interpersonal Safety Answer Date Record ed Do you feel physically and e motionally safe where you currently live? Yes 10/17/2023 Within the past 12 months, h ave you been hit, slapped, kicked or otherwise physically hurt by someone? No 10/17/2023 Within the past 12 months, h ave you been humiliated or emotionally abused in other ways by your partner or ex-partner? 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 Gender Identity Male 10/07/2018 12:43 PM CDT Sexual Orientation Straight 01/01/2021 1: 52 PM CDT documented as of this encounter Plan of Treatment Upcoming Encounters Date Type Department Care Team (Late st Contact Info) Description 12/27/2024 2:00 PM CDT Office Visit [address] [phone] Alfie Calhoun MD [address] [place] [address] 01/01/2025 11:00 AM CDT Office Visit [facility] [address] [place] [phone] Derek Pacheco MD [address] [place] [address] 01/21/2025 PRE VISIT [facility] Plastic and Reconstructive Surgery [address] [phone] Kristal Gamez PA-C [address] [place] [address] Previsit 01/21/2025 2:00 PM CDT Office Visit [facility]astic [facility] Surgery [address] [phone] [place] [address] [place] [address] Kristal Gamez PA-C [address] [place] [address] 02/28/2025 9:30 AM CDT Virtual Visit [facility] Sleep [address] [place] [phone] Kanu Rajan DO [address] [address] [place] [address] 10/24/2025 1:30 PM CDT Office Visit [facility] [address] [place] [address] [place] [address] [place] [address] documented as of this encounter Visit Diagnoses Not on filedocumented in this encounter Additional Health Concerns Assessment Noted Time PHQ-9 Depression Total Score: 0 04/19/20 23 10:30 AM CDT documented as of this encounter Care Teams Armature Tester Relationship Specialty [place] [address] [place] [address] PCP - General Family Medicine 05/24/23 10/15/24 [place] [address] [place] [address] PCP - General Family Medicine 10/16/24 Alfie Calhoun MD [address] [place] [address] Dermatology 02/11/21 Derek Pacheco MD [address] [place], [place] [address] Urology 03/31/21 Bobbi Snell, OPERATOR [address] [place] [address] Nurse Practitioner Family Medicine 07/27/22 Alfie Santacruz MD [address] [place] [address] Critical Care 07/27/22 Derek Pacheco MD [address] [place] [address] Assigned Surgical Provider 10/23/22 [place] [address] [place] [address] Assigned PCP 10/11/23 Kanu Rajan DO [address] 106 [place] [address] Assigned Sleep Provider 05/12/24 [place] [address] [place] [address] Family Medicine 07/18/24 Kristal Gamez PA-C [address] 6[address]85 Physician Digital Photo Printer Plastic Surgery 07/18/24 Rashawn Ramirez MD 500 [place], [place] [address] Assigned Dermatology Provider 09/09/24 Karen Lorenz CHW Community Health Worker 10/17/24 Veronique Menendez, RN Lead Inventory Associate And Driver Primary Care - CC 10/18/24 documented as of this encounter
--- OUTSIDE RECORDS SUMMARY | 2024-11-25 11:18 | XMS_ITS | Encounter Summary ---
Author Organization [facility] Address [address] [place] [address] Care Team Providers Care Asp Developer Name Role Phone Deon Iniguez MD Primary Care Provider [phone] Deon Iniguez MD Unavailable [phone] Stevie Gilman MD Unavailable [phone] Shelly Stinson PA-C Unavailable [phone] Logan Lee MD Unavailable Alfie Calhoun MD Unavailable [phone] Veronika Sommer PA-C Unavailable [phone] Alfie Calhoun MD Unavailable [phone] Debra Miller PA-C Unavailable Shanel Lerma MD Unavailable [phone] Derek Pacheco MD Unavailable [phone] Lorene Kruse LP Unavailable Alfie Calhoun MD Unavailable [phone] No Ref-Primary, Physician Primary Care Provider Bobbi Snell NP Unavailable Alfie Santacruz MD Unavailable [phone] Derek Pacheco MD Unavailable [phone] Linda Bhatti NP Unavailable Unavailable Milana Elise APRN PUPPY WALKER Unavailable Un available HedtkeShanel MD Primary Care Provider [phone] ArikMilana APRN PUPPY WALKER Unavailable Un available Arik, Milana Coyne APRN PUPPY WALKER Unavailable Un available Arik, Mliana Coyne APRN PUPPY WALKER Unavailable Un available HedtkeShanel MD Unavailable [phone] Kanu Rajan DO Unavailable [phone] Shanel Lerma MD Unavailable [phone] Kristal Gamez PA-C Unavailable [phone] Rashawn Ramirez MD Unavailable Shanel Lerma MD Primary Care Provider [phone] ArtieAudra diazko CHW Unavailable [phone] Veronique Menendez RN Unavailable Encounter Details Date Type Department Care Team (Late st Contact Info) Description 11/01/2019 [facility] Medical Advice [address] [phone] Makenzie Garcia, [facility] Social History Tobacco Use Types Packs/Day Years [...] PM CDT 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 No / Unsure 10/24/2019 12:31 PM CDT documented as of this encounter Plan of Treatment Upcoming Encounters Date Type Department Care Team (Late st Contact Info) Description 12/27/2024 2:00 PM CDT Office Visit [facility] [address] [phone] Alfie Calhoun MD [address] [place] [address] 01/01/2025 11:00 AM CDT Office Visit [facility] [address] [place] [phone] Derek Pacheco MD [address] [place], [place] [address] 01/21/2025 PRE VISIT [facility] Plastic and Reconstructive Surgery [address] [phone] Kristal Gamez PA-C [address] [place] [address] Previsit 01/21/2025 2:00 PM CDT Office Visit [facility] Plastic and Reconstructive Surgery [address] [phone] [place] [address] [place] [address] Kristal Gamez PA-C [address] [place] [address] 02/28/2025 9:30 AM CDT Virtual Visit [facility] Sleep [address] [phone] Kanu Rajan, [address] [place], [place] [address] 10/24/2025 1:30 PM CDT Office Visit [facility] [address] [place] [phone] [place] [address] [place] [address] documented as of this encounter Visit Diagnoses Not on filedocumented in this encounter Additional Health Concerns Infection Onset Date Last Indicated Resolved Time Rule Out COVID-19 12/28/2023 12/28/2023 12/29/2023 12:25 AM CDT Assessment Noted Time PHQ-9 Depression Total Score: 0 03/15/20 18 7:16 AM CDT documented as of this encounter Care Teams Asp Developer Relationship Specialty Start Date End Date Deon Iniguez MD [address] [place] [phone] PCP - General Internal Medicine 12/08/13 07/08/22 No Ref-Primary, Physician PCP - General 07/23/22 05/23/23 [place] [address] [place] [address] PCP - General Family Medicine 05/24/23 10/15/24 [place] [address] [place] [address] PCP - General Family Medicine 10/16/24 Deon Iniguez MD [address] [place] [phone] Assigned PCP 02/12/18 04/26/20 Stevie Gilman MD [address] [place] [phone] Assigned Surgical Provider 04/11/20 10/18/20 Shelly Stinson PA-C [facility] [address] [place] [address] Assigned PCP 05/11/20 01/17/21 [place] [address] [place] [address] Assigned PCP 04/27/20 05/10/20 Alfie Calhoun MD [address] [place] [address] Assigned Surgical Provider 10/19/20 01/10/21 Veronika Sommer PA-C [address] [place] [place] [address] Assigned Surgical Provider 01/11/21 04/25/21 Alfie Calhoun MD [address] [place] [address] Dermatology 02/11/21 Debra Miller PA-C [facility] [address] [place] [address] Assigned PCP 01/18/21 03/14/21 [place] [address] [place] [address] Assigned PCP 03/15/21 01/07/23 Derek Pacheco MD [address] [place] [address] Urology 03/31/21 [place] [address] [facility] 200 [place] [address] Assigned Behavioral Health Provider 05/10/21 07/30/22 Alfie Calhoun MD [address] [place] [address] Assigned Surgical Provider 04/26/21 10/22/22 Bobbi Snell AIR BAG CURER 1700 [place] [address] Nurse Practitioner Family Medicine 07/27/22 Alfie Santacruz MD [address] [place] [address] Critical Care 07/27/22 Derek Pacheco MD [address] [place] [address] Assigned Surgical Provider 10/23/22 Linda Bhatti NP Assigned PCP 01/08/23 04/29/23 Milana Elise APRN PUPPY WALKER Assigned PCP 09/10/23 10/10/23 Milana Elise APRN PUPPY WALKER Assigned Pain Medication Provider 06/25/23 07/13/23 Milana Elise APRN PUPPY WALKER Assigned PCP 04/30/23 08/11/23 Milana Elise APRN PUPPY WALKER Assigned PCP 08/12/23 09/09/23 [place] [address] [place] [address] Assigned PCP 10/11/23 Kanu Rajan DO [address] [address] Assigned Sleep Provider 05/12/24 [place] [address] [place] [address] Family Medicine 07/18/24 Kristal Gamez PA-C [address] 7846[address] Physician Cash Poster Plastic Surgery 07/18/24 Rashawn Ramirez MD 500 [place], [place] [address] Assigned Dermatology Provider 09/09/24 Karen Lorenz CHW Community Health Worker 10/17/24 Veronique Menendez, RN Lead Pnp Primary Care - CC 10/18/24 documented as of this encounter
--- OUTSIDE RECORDS SUMMARY | 2024-11-25 11:18 | XMS_ITS | Encounter Summary ---
Author Organization [facility] Address [address] [place] [address] Care Team Providers Care Oracle Brm Developer Name Role Phone Alfie Calhoun MD Unavailable [phone] Derek Pacheco MD Unavailable [phone] Bobbi Snell NP Unavailable Alfie Santacruz MD Unavailable [phone] Derek Pacheco MD Unavailable [phone] Milana Elise APRN REFERRAL NURSE Unavailable Un available Shanel Lerma MD Primary Care Provider [phone] Shanel Lerma MD Unavailable [phone] Kanu Rajan DO Unavailable [phone] Shanel Lerma MD Unavailable [phone] Kristal Gamez PA-C Unavailable [phone] Rashawn Ramirez MD Unavailable Shanel Lerma MD Primary Care Provider [phone] Karen Lorenz Unavailable [phone] Veronique Menendez RN Unavailable Encounter Details Date Type Department Care Team (Late st Contact Info) Description 09/15/2023 MyC Medical Advice [facility] [id number] [place] [phone] Mary Jane Stout Social History Tobacco Use Types Packs/Day Years Used Date Smoking Tobacco: Former Cigarettes 0.5 10 0 06/20/1974 - 06/20/1984 Passive Smoke Exposure: Past Smokeless Tobacco: Never Alcohol Use Standard Drinks/Week Comments No 0 (1 standard drink = 0.6 oz pur e alcohol) Social Connection and Isolation Panel [NHANES] A nswer Date Recorded In a typical week, how many times do you talk on the phone with family, friends, or neighbors? Three times a week 05/27/20 How often do you get togethe r with friends or relatives? Once a week 05/27/2023 How often do you attend chur ch or jain services? 1 to 4 times per year 05/27/2023 Do you belong to any clubs o r organizations such as sikhism groups, unions, fraternal or athletic groups, or school groups? No 05/27/2023 How often do you attend meet ings of the clubs or organizations you belong to? 1 to 4 times per year 05/27/2023 Are you , , di vorced, , never , or living with a partner? 05/27/2023 AUDIT-C Answer Date Recorded Q1: How often [...] PHQ-2 Answer Date Recorded PHQ-2 Score 0 04/19/2023 [facility] Occupational Stress Questionnaire Answer Date Recorded Do you feel stress - tense, restless, nervous, or anxious, or unable to sleep at night because your mind is troubled all the time - these days? Only a little 05/27/2023 Exercise Vital Sign Answer Date Recorde d On average, how many days pe r week do you engage in moderate to strenuous exercise (like a brisk walk)? 1 day 05/27/2023 On average, how many minutes do you engage in exercise at this level? 30 min 05/27/2023 Adolescent Education Answer Date Record ed Getting School Help Needed Not on file 04/03 Food Insecurity Answer Date Recorded Within the past 12 months, d id you worry that your food would run out before you got money to buy more? No 05/27/2023 Within the past 12 months, d id the food you bought just not last and you didn t have money to get more? No 05/27/2023 Housing Stability Answer Date Recorded Do you have housing? (Cuauhtemoc watts is defined as stable permanent housing and does not include staying outside in a car, in a tent, in an abandoned building, in an overnight detention, or couch-surfing.) Yes 05/27/2023 Are you worried about losing your housing? No 05/27/2023 Financial Resource Strain Answer Date R ecorded Within the past 12 months, h ave you or your family members you live with been unable to get utilities (heat, electricity) when it was really needed? No 05/27/2023 Transportation Needs Answer Date Record ed Within the past 12 months, h as lack of transportation kept you from medical appointments, getting your medicines, non-medical meetings or appointments, work, or from getting things that you need? No 05/27/2023 Interpersonal Safety Answer Date Record ed Do you feel physically and e motionally safe where you currently live? Yes 04/19/2023 Within the past 12 months, h ave you been hit, slapped, kicked or otherwise physically hurt by someone? No 04/19/2023 Within the past 12 months, h ave you been humiliated or emotionally abused in other ways by your partner or ex-partner? 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 Gender Identity Male 10/07/2018 12:43 PM CDT Sexual Orientation Straight 01/01/2021 1: 52 PM CDT documented as of this encounter Plan of Treatment Upcoming Encounters Date Type Department Care Team (Late st Contact Info) Description 12/27/2024 2:00 PM CDT Office Visit [address] [phone] Alfie Calhoun MD [address] [place] [address] 01/01/2025 11:00 AM CDT Office Visit [facility] Urology [facility] [address] [place] [phone] Derek Pacheco MD [address] [facility] [address] [place] [address] 01/21/2025 PRE VISIT [facility] Plastic and Reconstructive Surgery [address] [phone] Kristal Gamez PA-C [address] [place] [address] Previsit 01/21/2025 2:00 PM CDT Office Visit [facility] Plastic and Reconstructive Surgery [address] [phone] [place] [address] [place] [address] Kristal Gamez PA-C [address] [place] [address] 02/28/2025 9:30 AM CDT Virtual Visit [facility] Sleep [address] [place] [phone] Kanu Rajan DO [address] [facility] [address] [place], [place] [address] 10/24/2025 1:30 PM CDT Office Visit [facility] [address] [place] [phone] [place] [address] [place] [address] documented as of this encounter Visit Diagnoses Not on filedocumented in this encounter Additional Health Concerns Infection Onset Date Last Indicated Resolved Time Rule Out COVID-19 12/28/2023 12/28/2023 12/29/2023 12:25 AM CDT Assessment Noted Time PHQ-9 Depression Total Score: 0 04/19/20 10:30 AM CDT documented as of this encounter Care Teams Oracle Brm Developer Relationship Specialty [place] [address] [place] [address] PCP - General Family Medicine 05/24/23 10/15/24 [place] [address] [place] [address] PCP - General Family Medicine 10/16/24 Alfie Calhoun MD [address] [place] [address] Dermatology 02/11/21 Derek Pacheco MD [address] [address] Urology 03/31/21 Bobbi Snell, ENVIRONMENTAL FIELD TEAM MEMBER [address] [place] [address] Nurse Practitioner Family Medicine 07/27/22 Alfie Santacruz MD [address] [address] Critical Care 07/27/22 Dreek Pacheco MD [address] [place] [address] Assigned Surgical Provider 10/23/22 Milana Elise APRN REFERRAL NURSE Assigned PCP 09/10/23 10/10/23 [place] [address] [place] [address] Assigned PCP 10/11/23 Kanu Rajan DO [address] [facility] [address] [place] [address] Assigned Sleep Provider 05/12/24 [place] [address] [facility] [place] [address] Family Medicine 07/18/24 Kristal Gamez PA-C [address] [phone] Physician [place] [facility] 07/18/24 Rashawn Ramirez MD 500 [place], [place] [address] Assigned Dermatology Provider 09/09/24 Karen Lorenz CHW Community Health Worker 10/17/24 Veronique Menendez, RN Lead In Store Demonstrator Primary Care - CC 10/18/24 documented as of this encounter
--- OUTSIDE RECORDS SUMMARY | 2024-11-25 11:18 | XMS_ITS | Clinical Summary ---
Author Organization [place] Address [address] [place] [address] Care Team Providers Care Room Service Food Service Attendant Name Role Phone CurryAlfie fish MD Unavailable [phone] Derek Pacheco MD Unavailable [phone] Bobbi Snell NP Unavailable Alfie Santacruz MD Unavailable Derek Pacheco MD Unavailable [phone] Shanel Lerma MD Unavailable [phone] Satinder Kanu Li DOMINGUEZ Unavailable Shanel Lerma MD Unavailable Kristal Gamez PA-C Unavailable [phone] Rashawn Ramirez MD Unavailable Shanel Lerma MD Primary Care Provider Veronique Menendez RN Unavailable Allergies Active Allergy Reactions Criticality Noted Date Comments Lisinopril Cough Low 01/16/2021 Medications multivitamin w/minerals (THERA-VIT-M) tablet Take 1 tablet by mouth daily 05/27/20 16 Active Krill Oil 500 MG CAPS Take 500 mg by mouth daily Active UNABLE TO FIND Take 90 mcg by mouth daily MEDICATION NAME: MK-7 for D3 absorbtion Active Turmeric 500 MG CAPSIndications: taking 2 caps ( 1000 mg) once daily Take 500 mg by mouth daily Active UNABLE TO FIND Take 500 mg by mouth daily MEDICATION NAME: Quercetin Active zinc 50 MG TABS Take 15 mg by mouth 5 times daily Active vitamin C (ASCORBIC ACID) 100 MG tablet Take 100 mg by mouth daily Active Cholecalciferol (VITAMIN D3) 692037 UNIT/GM POWD Take 5,000 Units by mouth Active Black Pepper-Turmeric (TURMERIC COMPLEX/BLACK PEPPER) 3-500 MG CAPS Take 500 mg by mouth Active albuterol (PROAIR HFA/PROVENTIL HFA/VENTOLIN HFA) 108 (90 Base) MCG/ACT inhalerIndicatio ns:Cough, unspecified type Inhale 2 puffs into the lungs every 4 hours as needed for shortness of breath or wheezing 18 g 10/17/19 24 Active fluticasone (ARNUITY ELLIPTA) 100 MCG/ACT inhalerIndicatio ns:Intermittent asthma without complication, unspecified asthma severity Inhale 1 puff into the lungs daily 30 each 01/05/20 24 Active amLODIPine (NORVASC) 2.5 MG tabletIndication s:Essential hypertension Take 1 tablet (2.5 mg) by mouth daily. 90 tablet 3 10/17/19 25 Active clotrimazole (LOTRIMIN) 1 % external creamIndications :Tinea cruris Apply topically 2 times daily. 45 g 11 10/17/19 25 Active nystatin-triamci nolone (MYCOLOG II) 676911-0.1 UNIT/GM-% external creamIndications :Tinea cruris Apply topically 2 times daily. 60 g 11 10/17/19 25 Active semaglutide-weig ht management (WEGOVY) 0.25 MG/0.5ML penIndications:H yperlipidemia LDL goal <130,Essential hypertension,Mor bid obesity (H),Obstructive sleep apnea syndrome Inject 0.5 mLs (0.25 mg) subcutaneously once a week. 2 mL 10/17/19 25 Active rosuvastatin (CRESTOR) 20 MG tabletIndication s:Hyperlipidemia LDL goal <130 Take 1 tablet (20 mg) by mouth daily. 10/17/19 25 Active Active Problems Problem Noted Date Diagnosed Date [...] Reviewed chart for advance care plan. Seth Hernandez has been provided information and resources [...] 07/04/2011 021 Overview (07/04/2011): After prostatectomy 02/28 Encounters Date Type Department Care Team Description 11/15/2024 Results Follow-Up [address] [phone] Shanel Lerma MD Subj: Message about your results 11/14/2024 8:51 AM CDT - 11/14/2024 11:59 PM CDT Hospital Encounter [facility] [address] [facility] [address] [place] [address] Shanel Lerma MD Screening for AAA (abdominal aortic aneurysm) Discharge Disposition: Home or Self Care 11/14/2024 Travel 11/09/2024 Travel 10/31/[address] [address] Shanel Lerma MD Prior Auth - Medication (semaglutide-weight management (WEGOVY) 0.25 MG/0.5ML pen) 10/17/2024 MyC Medical Advice [address] [address] Shanel Lerma MD 10/16/2024 10:30 AM CDT Office Visit [address] [phone] Shanel Lerma MD Routine general medical examination at a health care facility (Primary Dx); Screening for AAA (abdominal aortic aneurysm); Hyperlipidemia LDL goal <130; Essential hypertension; Tinea cruris; Morbid obesity (H); Obstructive sleep apnea syndrome; Chronic pain syndrome; Degeneration of intervertebral disc of lumbar region with discogenic back pain and lower extremity pain 10/16/2024 Travel 09/16/2024 MyC Medical Advice Initial Department [facility] 09/16/2024 MyC Medical Advice Initial Department [facility] 09/11/2024 8:40 AM CDT Documentation Only [facility] [address] [place] [address] [address] [place] [address] Sleep Problem (STM ) 09/05/2024 8:20 AM CDT Documentation Only [facility] [address] [place] [address] [address] [place] [address] Sleep Problem (STM ) 09/05/2024 Documentation Only [facility] Linnette Mahmood Sleep Problem (PAP MASK CONSULT) 09/05/2024 Documentation Only [facility] Linnette Mahmood 09/04/2024 4:00 PM CDT Virtual Visit [facility] Sleep [facility] [address] [place] [address] Kanu Rajan DO IRMA (obstructive sleep apnea) (Primary Dx) 08/31/2024 12:20 PM CDT Documentation Only [facility] [address] [place] [address] [address] [place] [phone] Sleep Problem (STM) 08/28/2024 9:15 AM CDT Office Visit [facility] Urology [facility] [place] [address] [place] [phone] Derek Pacheco MD Prostate cancer (H) (Primary Dx) 08/28/2024 Travel from Last 3 Months Immunizations Immunization Administration Dates Next Due HEPA 05/23/2003,10/31/2002 05/03/2003 Influenza (High Dose) Trival ent,PF (Fluzone) 06/18/2024 Influenza (IIV3) PF 03/14/2012,05/23/2003,1998 Influenza Vaccine 18-64 (Flublok) 04/19/2023, Influenza Vaccine >6 months,quad, PF 03/04/2020, 04/01/2017 Influenza Vaccine, 6+MO IM ( QUADRIVALENT W/PRESERVATIVES) 03/22/2019,04/21/2018 Influenza, Split Virus, Triv alent, Pf (Fluzone\Fluarix) 03/25/2015,05/05/2011 Pneumococcal 23 valent 06/02/2021 TDAP (Adacel,Boostrix) 02/26/2006 TDAP Vaccine (Adacel) 10/25/2016 Tetanus 12/19/1995 Zoster recombinant adjuvanted (Shingrix) 024,10/17/2023 Family History Medical History Relation Comments Family History Negative Brother 1 2 brothe rs, 1 is 41 yr, 1 is 42 yr Family History Negative Father healthy and is 65 yr Other Cancer Father Breast Cancer Mother Family History Negative Mother healthy and is 65 yr Family History Negative Sister 1 2 sister s, 1 is 47 yr, 1 is 26 yr Colon Cancer No family hx of Relation Status Comments Brother 1 Alive Brother 2 Alive Father Mother Sister 1 Alive Sister 2 Alive 1/2 Son Alive Social History Tobacco Use Types Packs/Day Years Used Date Smoking Tobacco: Former Cigarettes 0.5 10 0 06/20/1974 - 06/20/1984 Passive Smoke Exposure: Past Smokeless Tobacco: Never Tobacco Cessation:Counseling Given: Yes Alcohol Use Standard Drinks/Week Comments No 0 (1 standard drink = 0.6 oz pur e alcohol) Social Connection and Isolation Panel [NHANES] A nswer Date Recorded Frequency of Communication with Friends and Fami ly Not on file 10/16/2024 How often do you get together with friends or re latives? 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 Gender Identity Male 10/07/2018 12:43 PM CDT Sexual Orientation Straight 01/01/2021 1: 52 PM CDT Last Filed Vital Signs Vital Sign Reading [...] Mass Index 38.56 10/16/2024 10:20 AM CDT Plan of Treatment Upcoming Encounters Date Type Department Care Team (Late st Contact Info) Description 12/27/2024 2:00 PM CDT Office Visit [address] [phone] Alfie Calhoun MD [address] [place] [address] 01/01/2025 11:00 AM CDT Office Visit [facility] Urology [facility] [address] [place] [phone] Derek Pacheco MD [address] [place] [address] 01/21/2025 PRE VISIT [facility]astic [facility] [address] 4th [place] [phone] Kristal Gamez PA-C [address] [address] Previsit 01/21/2025 2:00 PM CDT Office Visit [facility] Pl[facility] [place] [address] [address] [place] [address] [place] [address] Kristal Gamez PA-C [address] [place] [address] 02/28/2025 9:30 AM CDT Virtual Visit [facility] Sleep Clinic [address] [place] [phone] Kanu Rajan, DO [address] [place] [address] [address] [place] [address] 10/24/2025 1:30 PM CDT Office Visit [address] [phone] [place] [address] [place] [address] Health Maintenance Due Date Last Done Comments CT COLONOGRAPHY 1960 FLEX SIG 1960 sDNA (Cologuard) 1960 FIT 10/03/2011 10/02/2010 RSV VACCINE (1 - Risk 60-74 years 1-dose series) 2018 ASTHMA ACTION PLAN 01/16/2022 01/16/2021, 0 09/15/2015, 12/07/2013, Additional history exists PNEUMOCOCCAL VACCINE 50+ YEARS (2 of 2 - PCV) 06/02/2022 06/02/2021 COVID-19 VACCINE (5 - season) 2024 04/12/2022, 05/18/2021, 10/09/2020, Additional history exists ASTHMA CONTROL TEST 04/17/2025 10/16/2024, 07/13/2024, 10/17/2023, Additional history exists ANNUAL REVIEW OF HM ORDERS 07/13/202507/13, 01/05/2024, 12/31/2022, Additional history exists COLONOSCOPY 09/12/2025 09/12/2020, 10/25/2008 COLORECTAL CANCER SCREENING 09/12/2025 BMP 10/16/2025 10/16/2024, 12/18, 10/17/2023, Additional history exists LIPID 10/16/2025 10/16/2024, 09/19, 06/02/2021, Additional history exists MEDICARE ANNUAL WELLNESS VISIT 10/16/2025 10/16/2024, 10/17/2023, 06/02/2021, Additional history exists FALL RISK ASSESSMENT 10/19/2025 10/19/2024, 10/16/2024, 10/17/2023, Additional history exists DTAP/TDAP/TD VACCINE (3 - Td or Tdap) 10/25/2026 10/25/2016, 02/26/2006, 12/19/1995 PSA 08/29/2027 08/28/2024, 11/18, 05/31/2023, Additional history exists DIABETES SCREENING 10/17/2027 10/16/2024, 0 10/16/2024, 12/28/2023, Additional history exists ADVANCE CARE PLANNING 10/16/2029 10/16/2024 , 10/17/2023, 05/31/2023, Additional history exists HEPATITIS C SCREENING Completed 03/10/2018 HIV SCREENING Completed 03/10/2018 ZOSTER VACCINE Completed 04/24/2024, 10/17/2023 INFLUENZA VACCINE Completed 06/18/2024, , 03/02/2021, Additional history exists PHQ-2 (once per calendar year) Completed 10/16/2024, 10/16/2024, 09/04/2024, Additional history exists AORTIC ANEURYSM SCREENING (SYSTEM ASSIGNED) Completed 11/14/2024, 11/27/2015, 11/23/2010, Additional history exists HPV VACCINE Aged Out No longer eligi ble based on patient's age to complete this topic MENINGITIS VACCINE Aged Out No longer eligible based on patient's age to complete this topic Goals Goal Patient Goal Type Associated Problems Recent Progress Patient-Stated? Author Become up-to-date with health maintenance visit(s) Care Plan Health Maintenance Due or Overdue 10%( 11:08 AM CDT) Veronique Escalera RN Note: Barriers: [...] clinic with 24/7 after hours services available. School Supervisor will remain available as needed. Resources for [...] with any questions. I will contact my School Supervisor if additional resources are needed or desired. 3. I will contact my care team with questions, concerns or support needs. I will use the clinic as a resource and I understand I can contact my clinic with 24/7 after hours services available. School Supervisor will remain available as needed. Complete Health [...] the resource for Elizabeth Dejesus (department within [place] that can assist with completing Advance Care Planning documents. 2. I will contact Elizabeth Dejesus with any questions or when I am ready to complete my Advance Care Planning documents. 3. I will contact my care team with questions, concerns or support needs. I will use the clinic as a resource and I understand I can contact my clinic with 24/7 after hours services available. School Supervisor will remain available as needed. Medical Devices Implanted Type Area Box Toe Maker Device Identifier Shelf Expiration Date Model / Serial / Lot Mesh 3dmax Xl L17 Cm X W12 Cm Right Mid Inguinal [id number] - [id number] Implanted:Qty: 1 on 06/23/2023 by Adiel Springer MD at [facility] Mesh Right: Abdomen CR [employer]-DA[employer] 02/15/2028 [id number] / / [id number] Procedures Procedure Name Priority Date/Time Associated Diagnosis Comments US ABDOMINAL AORTA Routine 11/14/2024 9: 07 AM CDT Screening for AAA (abdominal aortic aneurysm) HEMOGLOBIN A1C Routine 10/16/2024 11:08 AM CDT Routine general medical examination at a health care facility CBC WITH PLATELETS Routine 10/16/2024 11 :08 AM CDT Routine general medical examination at a [facility] TSH WITH FREE T4 REFLEX Routine 10/16/2024 11:08 AM CDT Routine general medical examination at a health care facility COMPREHENSIVE METABOLIC PANEL Routine 10/16/2024 11:08 AM CDT Hyperlipidemia LDL goal <130 LIPID REFLEX TO DIRECT LDL PANEL Routine 10/16/2024 11:08 AM CDT Hyperlipidemia LDL goal <130 PSA TUMOR MARKER Routine 08/28/2024 9:05 AM CDT Prostate cancer (H) ASTHMA ACTION PLAN Routine 01/16/2021 7: 30 AM CDT COLONOSCOPY Routine 09/12/2020 11:11 AM CDT HIV ANTIGEN ANTIBODY COMBO Routine 03/10/2018 7:32 AM CDT Screening for human immunodeficiency virus HEPATITIS C SCREEN REFLEX TO HCV RNA QUANT AND GENOTYPE Routine 03/10/2018 7:32 AM CDT Need for hepatitis C screening test OCCULT BLOOD STOOL STAT 10/02/2010 8: 00 PM CDT from Last 3 Months or Most Recently Relevant to Health Maintenance Results * US Abdominal Aorta (11/14/2024 9:07 AM CDT) Anatomical Region Laterality Modality Abdomen/Pelvis Ultrasound 11/14/2024 9:07 AM CDT Impressions 11/14/2024 12:16 PM CDT IMPRESSION: No abdominal aortic aneurysm. Narrative 11/14/2024 12:16 PM CDT EXAM: US ABDOMINAL AORTA LOCATION: [facility] DATE: 11/14/2024 INDICATION: Screening for AAA [...] - 11/14/2024 EXAM: US ABDOMINAL AORTA LOCATION: [facility] DATE: 11/14/2024 INDICATION: Screening for AAA [...] abdominal aortic aneurysm. us Shanel Lerma MD IMG US ORDERABLES Final R esult * TSH with free T4 reflex (10/16/2024 11:08 AM CDT) TSH 1.45 0.30 - 4.20 uIU/mL 10/16/2024 10:54 PM CDT [facility] Blood STRUCTURE OF RIGHT UPPER LIMB / Unknown Venipuncture / Unknown 10/16/2024 11:08 AM CDT 10/16/2024 11:08 AM CDT us Shanel Lerma MD LAB - BLOOD ORDERABLES Fi nal Result [facility] [address] [facility], [address] [place] [phone] * (ABNORMAL) Lipid panel reflex to direct [...] 219 mg/dL Very High: >= 220 mg/dL us Shanel Lerma MD LAB - BLOOD ORDERABLES Fi nal Result U LABORATORY [facility] [address] [facility], [address] [place] [address] * (ABNORMAL) Hemoglobin A1c (10/16/2024 11:08 AM CDT) [facility] Estimated Average Glucose 128(H) <117 mg/dL 10/16/2024 11:15 AM CDT LABORATORY Hemoglobin A1C 6.1(H) 0.0 - 5.6 % 10/16/2024 11:15 AM CDT LABORATORY Comment: Normal <5.7% Prediabetes 5.7-6.4% Diabetes 6.5% or higher Note: Adopted from ADA consensus guidelines. Blood STRUCTURE OF RIGHT UPPER LIMB / Unknown Venipuncture / Unknown 10/16/2024 11:08 AM CDT 10/16/2024 11:08 AM CDT Shanel Lerma MD LAB - BLOOD ORDERABLES Fi nal Result LABORATORY [facility] - [address] (no room number, 1st floor of clinic) [place] [address] * Comprehensive metabolic panel (10/16/2024 11:08 AM [...] BLOOD ORDERABLES Fi nal Result [facility] [address] [facility], [address] [place] [address] * CBC with platelets (10/16/2024 11:08 [...] LAB - BLOOD ORDERABLES Fi nal Result [facility] LABORATORY [facility] [address] [facility] (no room number, 1st floor of clinic) [place] [address], [facility] * PSA tumor marker (08/28/2024 9:05 AM CDT) PSA Tumor Marker 0.07 0.00 - 4.00 ug/L 08/28/2024 9:37 AM CDT [facility] Blood STRUCTURE OF LEFT UPPER LIMB / Unknown Venipuncture / Unknown 08/28/2024 9:05 AM CDT 08/28/2024 9:05 AM CDT us Derek Pacheco MD LAB - BLOOD ORDERABLES Final Result [facility] [address], [facility] [address] [place] [address], [facility] [phone] * COLONOSCOPY (09/12/2020 11:11 AM CDT) COLONOSCOPY [employer] Patient Name: Seth Hernandez Procedure Date: 09/12/2020 11:11 AM Date of : 1960 Admit Type: Outpatient Age: 59 Gender: Male Attending MD: Josh Wilcox MD Total Sedation Time: 18_minutes continuous bedside 1:1 Instrument Name: 224 - Adult Colonoscope Procedure: Colonoscopy Indications: Screening for colorectal malignant neoplasm Providers: Josh Wilcox MD (Doctor) Referring MD: Deon Iniguez MD (Referring MD) Medicines: Midazolam 2 mg IV, Fentanyl 150 micrograms IV Complications: No immediate complications. Procedure: Pre-Anesthesia Assessment: - Prior to the procedure, a History and Physical was performed, and patient medications and allergies were reviewed. The patient is competent. The risks and benefits of the procedure and the sedation options and risks were discussed with the patient. All questions were answered and informed consent was obtained. Patient identification and proposed procedure were verified by the physician in the procedure room. Mental Status Examination: alert and oriented. Airway Examination: normal oropharyngeal airway and neck mobility. Respiratory Examination: clear to auscultation. CV Examination: normal. Prophylactic Antibiotics: The patient does not require prophylactic antibiotics. Prior Anticoagulants: The patient has taken no previous anticoagulant or antiplatelet agents. ASA Grade Assessment: II - A patient with mild systemic disease. After reviewing the risks and benefits, the patient was deemed in satisfactory condition to undergo the procedure. The anesthesia plan was to use moderate sedation / analgesia (conscious sedation). Immediately prior to administration of medications, the patient was re-assessed for adequacy to receive sedatives. The heart rate, respiratory rate, oxygen saturations, blood pressure, adequacy of pulmonary ventilation, and response to care were monitored throughout the procedure. The physical status of the patient was re-assessed after the procedure. After obtaining informed consent, the colonoscope was passed under direct vision. Throughout the procedure, the patient's blood pressure, pulse, and oxygen saturations were monitored continuously. The Olympus Adult Colonoscope, Model # CF-TD195I, [place]ora # 224, SN # [id number] was introduced through the anus and advanced to the cecum, identified by appendiceal orifice and ileocecal valve. The colonoscopy was performed without difficulty. The patient tolerated the procedure well. The quality of the bowel preparation was good. Findings: The perianal and digital rectal examinations were normal. A 4 mm polyp was found in the sigmoid colon. The polyp was sessile. The polyp was removed with a cold snare. Resection and retrieval were complete. Verification of patient identification for the specimen was done. Estimated blood loss was minimal. A few small and large-mouthed diverticula were found in the sigmoid colon. The exam was otherwise without abnormality on direct and retroflexion views. Impression: - One 4 mm polyp in the sigmoid colon, removed with a cold snare. Resected and retrieved. - Diverticulosis in the sigmoid colon. - The examination was otherwise normal on direct and retroflexion views. Recommendation: - Await pathology results. - Repeat colonoscopy after studies are complete for surveillance based on pathology results. Procedure Code(s): --- Professional --- 25671, Colonoscopy, flexible; with removal of tumor(s), polyp(s), or other lesion(s) by snare technique Diagnosis Code(s): --- Professional --- K63.5, Polyp of colon CPT copyright 2019 [employer]. All rights reserved. The codes documented in this report are preliminary and upon operator electronic warfare review may be revised to meet current compliance requirements. Electronically signed by Jsoh Wilcox MD __ Josh Wilcox MD 09/12/2020 11:54:24 AM I was physically present for the entire viewing portion of the exam. Josh Wilcox MD Number of Addenda: 0 Note Initiated On: 09/12/2020 11:11 AM Procedure Date: 09/12/2020 11:11:16 AM Scope Withdrawal Time: 0 hours 8 minutes 27 seconds Total Procedure Duration: 0 hours 16 minutes 50 seconds Estimated Blood Loss: Scope In: 11:32:25 AM Scope Out: 11:49:15 AM RADIOLOGY RESULTS 09/12/2020 11:1 1 AM CDT us Deon Iniguez MD PROCEDURES Final Result RADIOLOGY RESULTS * HIV Antigen Antibody Combo FUTURE anytime (03/10/2018 7:32 AM CDT) HIV Antigen Antibody Combo Nonreactive NR^Nonrea ctive 03/13/2018 12:22 PM CDT [facility] Comment:HIV-1 p24 Ag & HIV-1 /HIV-2 Ab Not Detected Blood specimen (specimen) 03/10/2018 7:32 AM CDT 03/10/2018 7:33 AM CDT us Deon Iniguez MD LAB - BLOOD ORDERABLES Final Result Performing Organization Address City/[facility]/ZIP Co de Phone Number [address] * Hepatitis C Screen Reflex to RNA FUTURE anytime (03/10/2018 7:32 AM CDT) Hepatitis C Antibody Nonreactive NR^Nonre active 03/13/2018 12:22 PM CDT [facility] Comment: Assay performance characteristics have not been established for newborns, infants, and children Blood specimen (specimen) 03/10/2018 7:32 AM CDT 03/10/2018 7:33 AM CDT us Deon Iniguez MD LAB - BLOOD ORDERABLES Final Result Performing Organization Address City/[facility]/ZIP Co de Phone Number [address] * Occult blood stool (10/02/2010 8:00 PM CDT) Occult Blood Negative [facility]G [facility] 10/02/2010 8:00 PM CDT 10/02/2010 8:25 PM CDT us Gregorio Saab MD LAB - STOOLS ORDERABLES Final Re sult [facility] [address] [place] [address], [facility] [phone] from Last 3 Months or Most Recently Relevant to Health Maintenance Additional Health Concerns Active Problems Noted Date Diagnosed Date Health Maintenance Due or Overdue 10/19/2024 Resources 10/19/2024 Patient does not have a valid Health Care Direct marciano 10/19/2024 Insurance [place] MED[place] MEDICARE TRAVELERS INSURANCE TRAVELERS INSURANCE [facility] Care Teams Room Service Food Service Attendant Relationship Specialty [place] [address] [place] [address] PCP - General Family Medicine 10/16/24 Alfie Calhoun MD [address] [place] [address] Dermatology 02/11/21 Derek Pacheco MD [address] [place] [address] Urology 03/31/21 Bobbi Snell, SPORTS PHYSIOTHERAPIST [address] [place] [address] Nurse Practitioner Family Medicine 07/27/22 Alfie Santacruz MD [address] [address] Critical Care 07/27/22 Derek Pacheco MD [address] [place] [address] Assigned Surgical Provider 10/23/22 [place] [address] [place] [address] Assigned PCP 10/11/23 Kanu Rajan DO [address] [facility] [address] [place] [address] Assigned Sleep Provider 05/12/24 [place] [address] [place] [address] Family Medicine 07/18/24 Kristal Gamez PA-C [address] [address] Physician Coding Machine Operator Plastic Surgery 07/18/24 Rashawn Ramirez MD [address] [place] [address] Assigned Dermatology Provider 09/09/24 Veronique Menendez, RN Lead School Supervisor Primary Care - CC 10/18/24
--- OUTSIDE RECORDS SUMMARY | 2024-11-25 11:18 | XMS_ITS | Encounter Summary ---
Author Organization [facility] Address [address] [place] [address] Care Team Providers Care Interactive Media Marketing Specialist Name Role Phone Deon Iniguez MD Primary Care Provider + [phone] Domenic Aviles MD Primary Care Provider + [phone] Deon Iniguez MD Primary Care Provider + [phone] Deon Iniguez MD Unavailable +[phone] Deon Iniguez MD Unavailable +[phone] Stevie Gilman MD Unavailable +[phone] Shelly Stinson PA-C Unavailable + [phone] Logan Lee MD Unavailable Alfie Calhoun MD Unavailable +[phone] Veronika Sommer-C Unavailable +[phone] Alfie Calhoun MD Unavailable +[phone] Debra Miller-C Unavailable Shanel Lerma MD Unavailable +[phone] Deerk Pacheco MD Unavailable +[phone] Lorene Kruse LP Unavailable +[phone] Alfie Calhoun MD Unavailable +[phone] No Ref-Primary, Physician Primary Care Provider Bobbi Snell NP Unavailable Alfie Santacruz MD Unavailable +[phone] Derek Pacheco MD Unavailable +[phone] Linda Bhatti PHYSICAL PLANT EMPLOYEE Unavailable Unavailable Arik, Milana Coyne APRN TARPER Unavailable Un available Hedtke, Shanel Fernandes MD Primary Care Provider +[phone] Arik, Milana Coyne APRN TARPER Unavailable Un available Airk, Milana Coyne APRN TARPER Unavailable Un available Arik, Milana Coyne APRN TARPER Unavailable Un available Hedtke, Shanel Fernandes MD Unavailable +[phone] Satinder Kanubing [facility] DO Unavailable +[phone] LisatShanel adames MD Unavailable +[phone] Kristal Gamez PA-C Unavailable +[phone] Rashawn Ramirez MD Unavailable Shanel Lerma MD Primary Care Provider +[phone] Gerda Karen CHW Unavailable +[phone] Veronique Menendez RN Unavailable Encounter Details Date Type Department Care Team (Late st Contact Info) Description 02/27/2011 MyC Medical Advice [address] [address] Deon Iniguez MD [address] [place] [address] Social History Tobacco Use Types Packs/Day Years Used Date Smoking Tobacco: Former Cigarettes Q uit: 06/20/1984 Smokeless Tobacco: Never Alcohol Use Standard Drinks/Week Comments No 0 (1 standard drink = 0.6 oz pur e alcohol) Sex and Gender Information Value Date Recorded Sex Assigned at Male 10/07/2018 12:43 PM CDT 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 Gender Identity Male 10/07/2018 12:43 PM CDT Sexual Orientation Straight 01/01/2021 1: 52 PM CDT documented as of this encounter Plan of Treatment Upcoming Encounters Date Type Department Care Team (Late st Contact Info) Description 12/27/2024 2:00 PM CDT Office Visit [facility] [address] [phone] Alfie Calhoun MD 5200 [place] [address] 01/01/2025 11:00 AM CDT Office Visit [facility] [address] [place] [phone] Derek Pacheco MD [address] [place] [address] 01/21/2025 PRE VISIT [facility] [address] [phone] Kristal Gamez PA-C [address] [place] [address] Previsit 01/21/2025 2:00 PM CDT Office Visit [facility] [address] [phone] [place] [address] [place] [address] Kristal Gamez PA-C [address] [place] [address] 02/28/2025 9:30 AM CDT Virtual Visit [facility] [address] [phone] Kanu Rajan DO [address] [place], [place] [address] 10/24/2025 1:30 PM CDT Office Visit [facility] [address] [place] [phone] [place] [address] [place] [address] documented as of this encounter Visit Diagnoses Not on filedocumented in this encounter Additional Health Concerns Infection Onset Date Last Indicated Resolved Time Rule Out COVID-19 12/28/2023 12/28/2023 12/29/2023 12:25 AM CDT documented as of this encounter Care Teams Interactive Media Marketing Specialist Relationship Specialty Start Date End Date Deon Iniguez MD [address] [place] [phone] PCP - General 08/04/01 12/06/13 Domenic Aviles MD [address] [place] [phone] PCP - General Family Practice 12/07/13 12/07/13 Deon Iniguez MD [address] [place] [address] PCP - General Internal Medicine 12/08/13 07/08/22 Deon Iniguez MD [address] [place] [address] PCP - Assigned PCP 02/12/18 08/22/18 No Ref-Primary, Physician PCP - General 07/23/22 05/23/23 [place] [address] [place] [address] PCP - General Family Medicine 05/24/23 10/15/24 [place] [address] [place] [address] PCP - General Family Medicine 10/16/24 Deon Iniguez MD [address] [place] [phone] Assigned PCP 02/12/18 04/26/20 Stevie Gilman MD [address] [address] Assigned Surgical Provider 04/11/20 10/18/20 Shelly Stinson PA-C [facility] [address] [place] [address] Assigned PCP 05/11/20 01/17/21 [place] [address] [place] [address] Assigned PCP 04/27/20 05/10/20 Alfie Calhoun MD [address] [place] [address] Assigned Surgical Provider 10/19/20 01/10/21 Veronika Sommer PA-C [address] [place] [address] Assigned Surgical Provider 01/11/21 04/25/21 Alfie Calhoun MD [address] [place] [address] Dermatology 02/11/21 Debra Miller PA-C [facility] [address] [place] [address] Assigned PCP 01/18/21 03/14/21 [place] [address] [place] [address] Assigned PCP 03/15/21 01/07/23 Derek Pacheco MD [address] [place] [address] Urology 03/31/21 [place] [address] [facility] [address] [place] [address] Assigned Behavioral Health Provider 05/10/21 07/30/22 Alfie Calhoun MD 5[address] [place] [address] Assigned Surgical Provider 04/26/21 10/22/22 Bobbi Snell NP 1700 [place] [address] Nurse Practitioner Family Medicine 07/27/22 Alfie Santacruz MD 420 [facility] 276 [place] [address] Critical Care 07/27/22 Derek Pacheco MD 6363 [facility] 500 [place], [place] [address] Assigned Surgical Provider 10/23/22 Linda Bhatti, CHAPARRITA Assigned PCP 01/08/23 04/29/23 Milana Elise APRN TARPER Assigned PCP 09/10/23 10/10/23 ArikMilana APRN TARPER Assigned Pain Medication Provider 06/25/23 07/13/23 Milana Elise APRN TARPER Assigned PCP 04/30/23 08/11/23 [facility] Ass[facility] PCP 08/12/23 09/09/23 [place] [address] [place] [address] Assigned PCP 10/11/23 Kanu Rajan DO 606 [facility] 106 [place] [address] Assigned Sleep Provider 05/12/24 [place] [address] [place] [address] Family Medicine 07/18/24 Kristal Gamez PA-C [address] [address] Physician Hog Grader Plastic Surgery 07/18/24 Rashawn Ramirez MD 500 [place] [address] Assigned Dermatology Provider 09/09/24 Karen Lorenz CHW Community Health Worker 10/17/24 Veronique Menendez, RN Lead Car Cleaner Primary Care - CC 10/18/24 documented as of this encounter
--- OUTSIDE RECORDS SUMMARY | 2024-11-25 11:18 | XMS_ITS | Encounter Summary ---
Author Organization [facility] Address [address] [place] [address] Care Team Providers Care Case Sealer Name Role Phone Deon Iniguez MD Primary Care Provider + [phone] Shelly Stinson PA-C Unavailable + [phone] Alfie Calhoun MD Unavailable +[phone] Veronika Sommer PA-C Unavailable +[phone] Alfie Calhoun MD Unavailable +[phone] Debra Miller PA-C Unavailable Shanel Lerma MD Unavailable +[phone] Derek Pacheco MD Unavailable +[phone] Lorene Kruse LP Unavailable [phone] Alfie Calhoun MD Unavailable +[phone] No Ref-Primary, Physician Primary Care Provider Bobbi Snell NP Unavailable Alfie Santacruz MD Unavailable +[phone] Derek Pacheco MD Unavailable +[phone] Linda Bhatti NP Unavailable Unavailable ArikMilana APRN HYDRAULIC ELEVATOR CONSTRUCTOR Unavailable Un available Shanel Lerma MD Primary Care Provider +[phone] Milana Elise APRN HYDRAULIC ELEVATOR CONSTRUCTOR Unavailable Un available ArikMilana APRN HYDRAULIC ELEVATOR CONSTRUCTOR Unavailable Un available Arik, Milana Doretha STOVER HYDRAULIC ELEVATOR CONSTRUCTOR Unavailable Un available Shanel Lerma MD Unavailable +[phone] Kanu Rajan DO Unavailable +[phone] Shanel Lerma MD Unavailable +[phone] Kristal Gamez PA-C Unavailable +[phone] Rashawn Ramirez MD Unavailable Shanel Lerma MD Primary Care Provider +[phone] Gerda Karen CHW Unavailable [phone] Veronique Menendez RN Unavailable Encounter Details Date Type Department Care Team (Late Contact Info) Description 01/01/2021 MyC Medical Advice [facility] [address] [address] Makenzie Sorto, FERNANDA Social History Tobacco Use Types Packs/Day Years Used Date Smoking Tobacco: Former Cigarettes 0.5 10 0 06/20/1974 - 06/20/1984 Smokeless Tobacco: Never Alcohol Use Standard Drinks/Week Comments No 0 (1 standard drink = 0.6 oz pur e alcohol) PHQ-2 Answer Date Recorded PHQ-2 Total Score (Adult) - Positive if 3 or more points; Administer PHQ-9 if positive 2 12/31/2020 Sex and Gender Information Value Date Recorded Sex Assigned at Male 10/07/2018 12:43 PM CDT 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 No / Unsure 12/24/2020 9:53 AM CDT documented as of this encounter Plan of Treatment Upcoming Encounters Date Type Department Care Team (Late Contact Info) Description 12/27/2024 2:00 PM CDT Office Visit [address] [place] [phone] Alfie Calhoun MD 5200 [place] [address] 01/01/2025 11:00 AM CDT Office Visit [facility] [address] [place] [phone] Derek Pacheco MD 6363 [facility] [address] [place] [address] 01/21/2025 PRE VISIT [facility] [address] [phone] Kristal Gamez PA-C [address] [place] [address] Previsit 01/21/2025 2:00 PM CDT Office Visit [facility] [address] [phone] [place] [address] [place] [address] Kristal Gamez PA-C [address] [place] [address] 02/28/2025 9:30 AM CDT Virtual Visit [facility] [address] [phone] Kanu Rajan DO [address] [place] [address] 10/24/2025 1:30 PM CDT Office Visit [facility] [address] [place] [address] [place] [address] [place] [address] documented as of this encounter Visit Diagnoses Not on filedocumented in this encounter Additional Health Concerns Infection Onset Date Last Indicated Resolved Time Rule Out COVID-19 12/28/2023 12/28/2023 12/29/2023 12:25 AM CDT Assessment Noted Time PHQ-9 Depression Total Score: 9 01/02/20 7:03 AM CDT documented as of this encounter Care Teams Case Sealer Relationship Specialty Start Date End Date Deon Iniguez MD [address] [place] [phone] PCP - General Internal Medicine 12/08/13 07/08/22 No Ref-Primary, Physician PCP - General 07/23/22 05/23/23 [place] [address] [place] [address] PCP - General Family Medicine 05/24/23 10/15/24 [place] [address] [place] [address] PCP - General Family Medicine 10/16/24 Shelly Stinson, PA-C [facility] [address] [place] [address] Assigned PCP 05/11/20 01/17/21 Alfie Calhoun MD 5200 [place] [address] Assigned Surgical Provider 10/19/20 01/10/21 Veronika Sommer PA-C [address] [place] [address] Assigned Surgical Provider 01/11/21 04/25/21 Alfie Calhoun MD 5200 [place] [address] Dermatology 02/11/21 Debra Miller PA-C [facility] [address] [place] [address] Assigned PCP 01/18/21 03/14/21 [place] [address] [place] [address] Assigned PCP 03/15/21 01/07/23 Derek Pacheco MD [address] [place] [address] Urology 03/31/21 [place] [address] [facility] 200 [place] [address] Assigned Behavioral Health Provider 05/10/21 07/30/22 Alfie Calhoun MD 5200 [place] [address] Assigned Surgical Provider 04/26/21 10/22/22 Bobbi Snell, SOFTWARE ENGINEER 1700 [place] [address] Nurse Practitioner Family Medicine 07/27/22 Alfie Santacruz MD 420 [facility] 276 [place] [address] Critical Care 07/27/22 Derek Pacheco MD 6363 [facility] 500 [place], [place] [address] Assigned Surgical Provider 10/23/22 Linda Bhatti NP Assigned PCP 01/08/23 04/29/23 Milana Elise APRN HYDRAULIC ELEVATOR CONSTRUCTOR Assigned PCP 09/10/23 10/10/23 Milana Elise APRN HYDRAULIC ELEVATOR CONSTRUCTOR Assigned Pain Medication Provider 06/25/23 07/13/23 Milana Elise APRN HYDRAULIC ELEVATOR CONSTRUCTOR Assigned PCP 04/30/23 08/11/23 Milana Elise APRN HYDRAULIC ELEVATOR CONSTRUCTOR Assigned PCP 08/12/23 09/09/23 [place] [address] [place] [address] Assigned PCP 10/11/23 Kanu Rajan DO 606 [facility] 106 [place] [address] Assigned Sleep Provider 05/12/24 [place] [address] [place] [address] Family Medicine 07/18/24 Kristal Gamez PA-C [address] [address] Physician Customer Relations Specialist Plastic Surgery 07/18/24 Rashawn Ramirez MD 500 [place] [address] Assigned Dermatology Provider 09/09/24 Karen Lorenz CHW Community Health Worker 10/17/24 Veronique Menendez, RN Lead Leaf Stripper Primary Care - CC 10/18/24 documented as of this encounter
--- OUTSIDE RECORDS SUMMARY | 2024-11-25 11:18 | XMS_ITS | Encounter Summary ---
Author Organization [facility] Address [address] [place] [address] Care Team Providers Care Forensic Toxicologist Name Role Phone Deon Iniguez MD Primary Care Provider + [phone] Alfie Calhoun MD Unavailable + [phone] Shanel Lerma MD Unavailable +[phone] Derek Pacheco MD Unavailable +[phone] Lorene Kruse LP Unavailable Alfie Calhoun MD Unavailable + [phone] No Ref-Primary, Physician Primary Care Provider Bobbi Snell NP Unavailable Alfie Santacruz MD Unavailable +[phone] Derek Pacheco MD Unavailable +[phone] Linda Bhatti NP Unavailable Unavailable ArikMilana APRN PROPERTY APPRAISER Unavailable Un available HedtShanel adames MD Primary Care Provider +[phone] ArikMilana APRN PROPERTY APPRAISER Unavailable Un available ArikMilana APRN PROPERTY APPRAISER Unavailable Un available ArikMilana APRN PROPERTY APPRAISER Unavailable Un available HedtShanel adames MD Unavailable +[phone] Kanu Rajan DO Unavailable [phone] Shanel Lerma MD Unavailable [phone] Kristal Gamez PA-C Unavailable Rashawn Ramirez MD Unavailable Shanel Lerma MD Primary Care Provider [phone] Gerda Karen CHW Unavailable [phone] Veronique Menendez RN Unavailable Encounter Details Date Type Department Care Team (Late st Contact Info) Description 05/01/2021 MyC Medical Advice [facility] [address] [place] [address] [place] [address] [place] [address] Social History Tobacco Use Types [...] week 04/28/2021 How often do you attend chur or sabianism services? More than 4 times per year 04/28/2021 Do you belong to any clubs o r organizations such as zoroastrian groups, unions, fraternal or athletic groups, or [...] 04/28/2021 PHQ-2 Answer Date Recorded PHQ-2 Score 2 03/02/2021 [facility] Occupat ional Health - Occupational Stress [...] place to sleep or slept in a penitentiary (including now)? 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 No / Unsure 04/28/2021 4:11 PM CHICKEN BUYER documented as of this encounter Miscellaneous Notes * Telephone Encounter - Lynne Irene RN - 06/08/2021 6:58 AM CST Images from the original note were not included. Please call patient and let him know that he can either pay out of pocket, or submit to his insurance if he needs further treatment. We cannot work between the insurance companies. That is something he will have to do. If he has any further questions he can call the clinic manger Luana Irene RN Cottage MasterHydrogen Plant Operations Manager Service [facility] [phone] KEN BUYER * Telephone Encounter - Mary Jane Stout - 05/04/2021 8:11 AM CST Please see provider response Mary Jane Stout/ Bridge Repair Crew Person KEN BUYER * Telephone Encounter - Shanel Lerma MD - 05/01/2021 3:48 PM CHICKEN BUYER This is not in my realm any longer. Please message clinical marketing manager to see where this goes next. I suggest he use his private insurance if he feels he needs the surgery. [facility] KEN BUYER documented in this encounter Plan of Treatment Upcoming Encounters Date Type Department Care Team (Late st Contact Info) Description 12/27/2024 2:00 PM CDT Office Visit [facility] [address] [phone] Alfie Calhoun MD 6262 [place] [address] 01/01/2025 11:00 AM CDT Office Visit [facility] 6363 [facility] 500 [place] [phone] Derek Pacheco MD 6363 [facility] 500 [place] [address] 01/21/2025 PRE VISIT [facility] Plastic and Reconstructive Surgery [address] [phone] Kristal Gamez PA-C [address] [place] [address] Previsit 01/21/2025 2:00 PM CDT Office Visit [facility] Plastic [facility] Reconstructive Surgery [address] [phone] [place] [address] [place] [address] Kristal Gamez PA-C [address] [place] [address] 02/28/2025 9:30 AM CDT Virtual Visit [facility] Sleep [address] [phone] Kanu Rajan DO [address] [facility] 106 [place], [place] [address] 10/24/2025 1:30 PM CDT Office Visit [address] [phone] [place] [address] [place] [address] documented as of this encounter Visit Diagnoses Not on filedocumented in this encounter Additional Health Concerns Infection Onset Date Last Indicated Resolved Time Rule Out COVID-19 12/28/2023 12/28/2023 12/29/2023 12:25 AM CDT Assessment Noted Time PHQ-9 Depression Total Score: 9 01/02/20 7:03 AM CDT documented as of this encounter Care Teams Forensic Toxicologist Relationship Specialty Start Date End Date Deon Iniguez MD [address] [place] [phone] PCP - General Internal Medicine 12/08/13 07/08/22 No Ref-Primary, Physician PCP - General 07/23/22 05/23/23 [place] [address] [place] [address] PCP - General Family Medicine 05/24/23 10/15/24 [place] [address] [place] [address] PCP - General Family Medicine 10/16/24 Alfie Calhoun MD 5200 [place] [address] Dermatology 02/11/21 [place] [address] [place] [address] Assigned PCP 03/15/21 01/07/23 Derek Pacheco MD [address] [address] Urology 03/31/21 [place] [address] [facility] 200 [place] [address] Assigned Behavioral Health Provider 05/10/21 07/30/22 Alfie Calhoun MD 5200 [place] [address] Assigned Surgical Provider 04/26/21 10/22/22 Bobbi Snlel NP 1700 [place] [address] Nurse Practitioner Family Medicine 07/27/22 Alfie Santacruz MD [address] [place] [address] Critical Care 07/27/22 Derek Pacheco MD 6363 [facility] 500 [place] [address] Assigned Surgical Provider 10/23/22 Linda Bhatti NP Assigned PCP 01/08/23 04/29/23 Milana Elise APRN PROPERTY APPRAISER Assigned PCP 09/10/23 10/10/23 Milana Elise APRN PROPERTY APPRAISER Assigned Pain Medication Provider 06/25/23 07/13/23 Milana Elise APRN PROPERTY APPRAISER Assigned PCP 04/30/23 08/11/23 Milana Elise APRN PROPERTY APPRAISER Assigned PCP 08/12/23 09/09/23 [place] [address] [place] [address] Assigned PCP 10/11/23 Kanu Rajan DO [address] [place] [address] Assigned Sleep Provider 05/12/24 [place] [address] [place] [address] Family Medicine 07/18/24 Kristal Gamez PA-C [address] [place] [address] Physician Inspector Rough Castings Plastic Surgery 07/18/24 Rashawn Ramirez MD 500 [place] [address] Assigned Dermatology Provider 09/09/24 Karen Lorenz CHW Community Health Worker 10/17/24 Veronique Menendez, RN Lead Hat Finishing Materials Preparer Primary Care - CC 10/18/24 documented as of this encounter
--- OUTSIDE RECORDS SUMMARY | 2024-11-25 11:18 | XMS_ITS | Encounter Summary ---
Author Organization [facility] Address [address] [place] [address] Care Team Providers Care Healthcare Associate Name Role Phone Deon Iniguez MD Primary Care Provider + [phone] Shelly Stinson PA-C Unavailable + [phone] Alfie Calhoun MD Unavailable +[phone] Veronika Sommer PA-C Unavailable +[phone] Alfie Calhoun MD Unavailable +[phone] Debra Miller PA-C Unavailable Shanel Lerma MD Unavailable +[phone] Derek Pacheco MD Unavailable +[phone] Lorene Kruse LP Unavailable +[phone] Alfie Calhoun MD Unavailable +[phone] No Ref-Primary, Physician Primary Care Provider Bobbi Snell NP Unavailable Alfie Santacruz MD Unavailable +[phone] Derek Pacheco MD Unavailable +[phone] Linda Bhatti NP Unavailable Unavailable ArikMilana APRN ORTHOPHOTO TECH/DRAFTSMAN Unavailable Un available Shanel Lerma MD Primary Care Provider +[phone] Milana Elise APRN ORTHOPHOTO TECH/DRAFTSMAN Unavailable Un available ArikMilana APRN ORTHOPHOTO TECH/DRAFTSMAN Unavailable Un available Arik, Milana Doretha STOVER ORTHOPHOTO TECH/DRAFTSMAN Unavailable Un available Shanel Lerma MD Unavailable +[phone] Kanu Rajan DO Unavailable +[phone] Shanel Lerma MD Unavailable +[phone] Kristal Gamez PA-C Unavailable +[phone] Rashawn Ramirez MD Unavailable Shanel Lerma MD Primary Care Provider +[phone] Gerda Karen CHW Unavailable [phone] Veronique Menendez RN Unavailable Encounter Details Date Type Department Care Team (Late Contact Info) Description 11/24/2020 MyC Medical Advice [facility] [address] [place] [phone] Pati Sarmiento Social History Tobacco Use Types Packs/Day Years [...] PM CDT 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 No / Unsure 11/20/2020 2:50 PM CDT documented as of this encounter Plan of Treatment Upcoming Encounters Date Type Department Care Team (Late Contact Info) Description 12/27/2024 2:00 PM CDT Office Visit [address] [address] Alfie Calhoun MD 5200 [place] [address] 01/01/2025 11:00 AM CDT Office Visit [facility] Urology [facility] [address] [facility] [address] [place] [phone] Derek Pacheco MD 6363 [facility] 500 [place] [address] 01/21/2025 PRE VISIT [facility] Plastic and Reconstructive Surgery [address] [phone] Kristal Gamez PA-C [address] [place] [address] Previsit 01/21/2025 2:00 PM CDT Office Visit [facility] Plastic and Reconstructive Surgery [address] [phone] [place] [address] [place] [address] Kristal Gamez PA-C [address] [place] [address] 02/28/2025 9:30 AM CDT Virtual Visit [facility] Sleep [address] 202 [place] [phone] Kanu Rajan DO 606 24 [facility] 106 [place] [address] 10/24/2025 1:30 PM CDT Office Visit [address] [phone] [place] [address] [place] [address] documented as of this encounter Visit Diagnoses Not on filedocumented in this encounter Additional Health Concerns Infection Onset Date Last Indicated Resolved Time Rule Out COVID-19 12/28/2023 12/28/2023 12/29/2023 12:25 AM CDT Assessment Noted Time PHQ-9 Depression Total Score: 0 03/15/20 18 7:16 AM CDT documented as of this encounter Care Teams Healthcare Associate Relationship Specialty Start Date End Date Deon Iniguez MD [address] [place] [phone] PCP - General Internal Medicine 12/08/13 07/08/22 No Ref-Primary, Physician PCP - General 07/23/22 05/23/23 [place] [address] [place] [address] PCP - General Family Medicine 05/24/23 10/15/24 [place] [address] [place] [address] PCP - General Family Medicine 10/16/24 Shelly Stinson PA-C [facility] [address] [place] [address] Assigned PCP 05/11/20 01/17/21 Alfie Calhoun MD 5200 [place] [address] Assigned Surgical Provider 10/19/20 01/10/21 Veronika Sommer PA-C [address] [place] [address] Assigned Surgical Provider 01/11/21 04/25/21 Alfie Calhoun MD 5200 [place] [address] Dermatology 02/11/21 Debra Miller PA-C [facility] [address] [place] [address] Assigned PCP 01/18/21 03/14/21 [place] [address] [place] [address] Assigned PCP 03/15/21 01/07/23 Derek Pacheco MD [address] [place] [address] Urology 03/31/21 [place] [address] [facility] 200 [place] [address] Assigned Behavioral Health Provider 05/10/21 07/30/22 Alfie Calhoun MD 5200 [place] [address] Assigned Surgical Provider 04/26/21 10/22/22 Bobbi Snell LETTER SORTING MACHINE OPERATOR 1700 [place] [address] Nurse Practitioner Family Medicine 07/27/22 Alfie Santacruz MD [address] [place] [address] 276 [place] [address] Critical Care 07/27/22 Derek Pacheco MD 6363 [facility] 500 [place] [address] Assigned Surgical Provider 10/23/22 Linda Bhatti NP Assigned PCP 01/08/23 04/29/23 Milana Elise APRN ORTHOPHOTO TECH/DRAFTSMAN Assigned PCP 09/10/23 10/10/23 Milana Elise APRN ORTHOPHOTO TECH/DRAFTSMAN Assigned Pain Medication Provider 06/25/23 07/13/23 ArikMilana thomas APRN ORTHOPHOTO TECH/DRAFTSMAN Assigned PCP 04/30/23 08/11/23 Milana Elise APRN ORTHOPHOTO TECH/DRAFTSMAN Assigned PCP 08/12/23 09/09/23 [place] [address] [place] [address] Assigned PCP 10/11/23 Kanu Rajan DO 606 [facility] 106 [place] [address] Assigned Sleep Provider 05/12/24 [place] [address] [place] [address] Family Medicine 07/18/24 Kristal Gamez PA-C [address] 888085 Physician Vp Cardiovascular Plastic Surgery 07/18/24 Rasahwn Ramirez MD 500 [place], [place] [address] Assigned Dermatology Provider 09/09/24 Karen Lorenz, DEVORAH Community Health Worker 10/17/24 Veronique Menendez, RN Lead Emotional Disabilities Teacher Primary Care - CC 10/18/24 documented as of this encounter
--- OUTSIDE RECORDS SUMMARY | 2024-11-25 11:18 | XMS_ITS | Encounter Summary ---
Author Organization [facility] Address [address] [place] [address] Care Team Providers Care Lockstitch Sleeve Maker Name Role Phone Alfie Calhoun MD Unavailable + [phone] Derek Pacheco MD Unavailable [phone] No Ref-Primary, Physician Primary Care Provider Bobbi Snell NP Unavailable Alfie Santacruz MD Unavailable +[phone] Derek Pacheco MD Unavailable [phone] ArikMilana thomas APRN PERSONNEL MANAGER Unavailable Un available Shanel Lerma MD Primary Care Provider [phone] ArikMilana thomas APRN PERSONNEL MANAGER Unavailable Un available Arik, Milana Coyne APRN PERSONNEL MANAGER Unavailable Un available Arik, Milana Coyne APRN PERSONNEL MANAGER Unavailable Un available Shanel Lerma MD Unavailable +[phone] Kanu Rajan DO Unavailable +[phone] Shanel Lerma MD Unavailable [phone] Kristal Gamez PA-C Unavailable +[phone] Rashawn Ramirez MD Unavailable Shanel Lerma MD Primary Care Provider +[phone] Karen Lorenz Unavailable [phone] Veronique Menendez RN Unavailable Encounter Details Date Type Department Care Team (Late st Contact Info) Description 05/23/2023 MyC Medical Advice [facility] Surgery [place] [address] [place] [address] Elizabeth De León Social History Tobacco Use Types Packs/Day Years [...] often do you attend chur ch or voodoo services? 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 Gender Identity Male 10/07/2018 12:43 PM CDT Sexual Orientation Straight 01/01/2021 1: 52 PM CDT documented as of this encounter Plan of Treatment Upcoming Encounters Date Type Department Care Team (Late st Contact Info) Description 12/27/2024 2:00 PM CDT Office Visit [facility] [place] [address] [phone] Alfie Calhoun MD 5200 [place] [address] 01/01/2025 11:00 AM CDT Office Visit [facility] Urology [facility] [address] [place] [phone] Derek Pacheco MD [address] [facility] [address] [place], [place] [address] 01/21/2025 PRE VISIT [facility] Plastic and Reconstructive Surgery [address] [phone] Kristal Gamez PAAfshinC [address] [place] [address] Previsit 01/21/2025 2:00 PM CDT Office Visit [facility] Plastic and Reconstructive Surgery [address] [phone] [place] [address] [place] [address] Kristal Gamez PA-C [address] [place] [address] 02/28/2025 9:30 AM CDT Virtual Visit [facility] Sleep [address] [phone] Kanu Rajan DO [address] [place] [address] 10/24/2025 1:30 PM CDT Office Visit [facility] [address] [place] [address] [place] [address] [place] [address] documented as of this encounter Visit Diagnoses Not on filedocumented in this encounter Additional Health Concerns Infection Onset Date Last Indicated Resolved Time Rule Out COVID-19 12/28/2023 12/28/2023 12/29/2023 12:25 AM CDT Assessment Noted Time PHQ-9 Depression Total Score: 0 04/19/20 10:30 AM CDT documented as of this encounter Care Teams Lockstitch Sleeve Maker Relationship Specialty Start Date End Date No Ref-Primary, Physician PCP - General 07/23/22 05/23/23 [place] [address] [place] [address] PCP - General Family Medicine 05/24/23 10/15/24 [place] [address] [place] [address] PCP - General Family Medicine 10/16/24 Alfie Calhoun MD 5200 [place] [address] Dermatology 02/11/21 Derek Pacheco MD [address] [place] [address] [place] [address] Urology 03/31/21 Bobbi Snell, CASK MAKER 1700 [place] [address] Nurse Practitioner Family Medicine 07/27/22 Alfie Santacruz MD 420 [facility] 276 [place], [place] [address] Critical Care 07/27/22 Derek Pacheco MD 6363 [facility] 500 [place] [address] Assigned Surgical Provider 10/23/22 Milana Elise APRN PERSONNEL MANAGER Assigned PCP 09/10/23 10/10/23 Arik, Milana Coyne APRN PERSONNEL MANAGER Assigned Pain Medication Provider 06/25/23 07/13/23 ArikMilana thomas APRN PERSONNEL MANAGER Assigned PCP 04/30/23 08/11/23 [facility]NEL [facility] Assigned PCP 08/12/23 09/09/23 [place] [address] [place] [address] Assigned PCP 10/11/23 Kanu Rajan DO 606 [facility] 106 [place] [address] Assigned Sleep Provider 05/12/24 [place] [address] [place] [address] Family Medicine 07/18/24 Kristal Gamez PA-C [address] [address] Physician Floor Press Operator Plastic Surgery 07/18/24 Rashawn Ramirez MD 500 [place] [address] Assigned Dermatology Provider 09/09/24 Karen Lorenz CHW Community Health Worker 10/17/24 Veronique Menendez, RN Lead Steel Spar Operator Primary Care - CC 10/18/24 documented as of this encounter
--- OUTSIDE RECORDS SUMMARY | 2024-11-25 11:18 | XMS_ITS | Encounter Summary ---
Author Organization [facility] Address [address] [place] [address] Care Team Providers Care Fruit And Vegetable Parer Name Role Phone Deon Iniguez MD Primary Care Provider + [phone] Domenic Aviles MD Primary Care Provider + [phone] Deon Iniguez MD Primary Care Provider + [phone] Deon Iniguez MD Unavailable +[phone] Deon Iniguez MD Unavailable +[phone] Stevie Gilman MD Unavailable +[phone] Shelly Stinson PA-C Unavailable + [phone] Logan Lee MD Unavailable Alfie Calhoun MD Unavailable +[phone] Veronika Sommer-C Unavailable +[phone] Alfie Calhoun MD Unavailable +[phone] Debra Miller-C Unavailable Shanel Lerma MD Unavailable +[phone] Derek Pacheco MD Unavailable +[phone] Lorene Kruse LP Unavailable [phone] Alfie Calhoun MD Unavailable +[phone] No Ref-Primary, Physician Primary Care Provider Bobbi Snell NP Unavailable Alfie Santacruz MD Unavailable +[phone] Derek Pacheco MD Unavailable +[phone] Linda Bhatti GAUGER CHIEF Unavailable Unavailable Arik, Milana Coyne APRN FOOD BEVERAGE SERVER Unavailable Un available Hedtke, Shanel Fernandes MD Primary Care Provider +[phone] Arik, Milana Coyne APRN FOOD BEVERAGE SERVER Unavailable Un available Arik, Milana Coyne APRN FOOD BEVERAGE SERVER Unavailable Un available Arik, Milana Coyne APRN FOOD BEVERAGE SERVER Unavailable Un available Hedtke, Shanel Fernandes MD Unavailable +[phone] Satinder Kanubing [place] DO Unavailable +[phone] LisatShanel adames MD Unavailable +[phone] Kristal Gamez PA-C Unavailable +[phone] Rashawn Ramirez MD Unavailable Shanel Lerma MD Primary Care Provider +[phone] Gerda Karen CHW Unavailable [phone] Veronique Menendez RN Unavailable Encounter Details Date Type Department Care Team (Late st Contact Info) Description 04/19/2012 MyC Medical Advice [address] [address] Deon Iniguez MD [address] [place] [phone] Social History Tobacco Use Types Packs/Day Years Used Date Smoking Tobacco: Former Cigarettes Q uit: 06/20/1984 Smokeless Tobacco: Never Alcohol Use Standard Drinks/Week Comments No 0 (1 standard drink = 0.6 oz pur e alcohol) Sex and Gender Information Value Date Recorded Sex Assigned at Male 10/07/2018 12:43 PM CDT 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 Gender Identity Male 10/07/2018 12:43 PM CDT Sexual Orientation Straight 01/01/2021 1: 52 PM CDT documented as of this encounter Plan of Treatment Upcoming Encounters Date Type Department Care Team (Late st Contact Info) Description 12/27/2024 2:00 PM CDT Office Visit [facility] [address] [phone] Alfie Calhoun MD 5200 [place] [address] 01/01/2025 11:00 AM CDT Office Visit [facility] Urology [facility] [address] [place] [phone] Derek Pacheco MD [address] [place] [address] 01/21/2025 PRE VISIT [facility] Plastic and Reconstructive Surgery [address] [phone] Kristal Gamez PA-C [address] [place] [address] Previsit 01/21/2025 2:00 PM CDT Office Visit [facility] Plastic and Reconstructive Surgery [address] [phone] [place] [address] [place] [address] Kristal Gamez PA-C [address] [place] [address] 02/28/2025 9:30 AM CDT Virtual Visit [facility] Sleep [address] [phone] Kanu Rajan DO [address] [place], [place] [address] 10/24/2025 1:30 PM CDT Office Visit [facility] [address] [place] [phone] [place] [address] [place] [address] documented as of this encounter Visit Diagnoses Not on filedocumented in this encounter Additional Health Concerns Infection Onset Date Last Indicated Resolved Time Rule Out COVID-19 12/28/2023 12/28/2023 12/29/2023 12:25 AM CDT documented as of this encounter Care Teams Fruit And Vegetable Parer Relationship Specialty Start Date End Date Deon Iniguez MD [address] [place] [address] PCP - General 08/04/01 12/06/13 Domenic Aviles MD [address] [place] [phone] PCP - General Family Practice 12/07/13 12/07/13 Deon Iniguez MD [address] [place] [address] PCP - General Internal Medicine 12/08/13 07/08/22 Deon Iniguez MD [address] [place] [address] PCP - Assigned PCP 02/12/18 08/22/18 No Ref-Primary, Physician PCP - General 07/23/22 05/23/23 [place] [address] [place] [address] PCP - General Family Medicine 05/24/23 10/15/24 [place] [address] [place] [address] PCP - General Family Medicine 10/16/24 Deon Iniguez MD [address] [place] [phone] Assigned PCP 02/12/18 04/26/20 Stevie Gilman MD [address] [address] Assigned Surgical Provider 04/11/20 10/18/20 Shelly Stinson PA-C [facility] 2[address] [place] [address] Assigned PCP 05/11/20 01/17/21 [place] [address] [place] [address] Assigned PCP 04/27/20 05/10/20 Alfie Calhoun MD 5200 [place] [address] Assigned Surgical Provider 10/19/20 01/10/21 Veronika Sommer PA-C [address] [place] [address] Assigned Surgical Provider 01/11/21 04/25/21 Alfie Calhoun MD 5200 [place] [address] Dermatology 02/11/21 Debra Miller PA-C [facility] [address] [place] [address] Assigned PCP 01/18/21 03/14/21 [place] [address] [place] [address] Assigned PCP 03/15/21 01/07/23 Derek Pacheco MD [address] [place] [address] Urology 03/31/[address] [place] [address] [facility] [address] [place] [address] Assigned Behavioral Health Provider 05/10/21 07/30/22 Alfie Calhoun MD 5200 [place] [address] Assigned Surgical Provider 04/26/21 10/22/22 Bobbi Snell NP 1700 [place] [address] Nurse Practitioner Family Medicine 07/27/22 Alfie Santacruz MD 420 [facility] 276 [place] [address] Critical Care 07/27/22 Derek Pacheco MD 6363 [facility] 500 [place], [place] [address] Assigned Surgical Provider 10/23/22 Linda Bhatti, CHAPARRITA Assigned PCP 01/08/23 04/29/23 Milana Elise APRN FOOD BEVERAGE SERVER Assigned PCP 09/10/23 10/10/23 ArikMilana APRN FOOD BEVERAGE SERVER Assigned Pain Medication Provider 06/25/23 07/13/23 Milana Elise APRN FOOD BEVERAGE SERVER Assigned PCP 04/30/23 08/11/23 [facility] FOOD BEVERAGE SERVER Assigned PCP 08/12/23 09/09/23 [place] [address] [place] [address] Assigned PCP 10/11/23 Kanu Rajan DO 606 [facility] 106 [place] [address] Assigned Sleep Provider 05/12/24 [place] [address] [place] [address] Family Medicine 07/18/24 Kristal Gamez PA-C [address] [address] Physician Quality Control Auditor Plastic Surgery 07/18/24 Rashawn Ramirez MD 500 [place] [address] Assigned Dermatology Provider 09/09/24 Karen Lorenz CHW Community Health Worker 10/17/24 Veronique Menendez, RN Lead Real Estate Assessor Primary Care - CC 10/18/24 documented as of this encounter
--- OUTSIDE RECORDS SUMMARY | 2024-11-25 11:18 | XMS_ITS | Encounter Summary ---
Author Organization [facility] Address [address] [place] [address] Care Team Providers Care Access Database Developer Name Role Phone Alfie Calhoun MD Unavailable + [phone] Derek Pacheco MD Unavailable [phone] No Ref-Primary, Physician Primary Care Provider Bobbi Snell NP Unavailable Alfie Santacruz MD Unavailable +[phone] Derek Pacheco MD Unavailable [phone] ArikMilana thomas APRN EVENT AV OPERATOR Unavailable Un available Shanel Lerma MD Primary Care Provider [phone] ArikMilana thomas APRN EVENT AV OPERATOR Unavailable Un available Arik, Milana Coyne APRN EVENT AV OPERATOR Unavailable Un available Arik, Milana Coyne APRN EVENT AV OPERATOR Unavailable Un available Shanel Lerma MD Unavailable [phone] Kanu Rajan DO Unavailable +[phone] Shanel Lerma MD Unavailable +[phone] Kristal Gamez PA-C Unavailable +[phone] Rashawn Ramirez MD Unavailable Shanel Lerma MD Primary Care Provider [phone] Karen Lorenz Unavailable [phone] Veronique Menendez RN Unavailable Encounter Details Date Type Department Care Team (Late st Contact Info) Description 05/23/2023 MyC Medical Advice [facility] Surgery [place] [address] [place] [address] Elizabeth D eLeón Social History Tobacco Use Types Packs/Day Years [...] often do you attend chur ch or roman catholic services? 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 Gender Identity Male 10/07/2018 12:43 PM CDT Sexual Orientation Straight 01/01/2021 1: 52 PM CDT documented as of this encounter Plan of Treatment Upcoming Encounters Date Type Department Care Team (Late st Contact Info) Description 12/27/2024 2:00 PM CDT Office Visit [facility] [address] [phone] Alfie Calhoun MD [address] [place] [address] 01/01/2025 11:00 AM CDT Office Visit [facility] Urology [facility] [address] [place] [phone] Derek Pacheco MD [address] [facility] [address] [place], [place] [address] 01/21/2025 PRE VISIT [facility] Plastic and Reconstructive Surgery [address] [phone] Kristal Gamez PAAfshinC [address] [place] [address] Previsit 01/21/2025 2:00 PM CDT Office Visit [facility] Plastic and Reconstructive Surgery [address] [phone] [place] [address] [place] [address] Kristal Gamez PA-C [address] [place] [address] 02/28/2025 9:30 AM CDT Virtual Visit [facility] Sleep [address] [phone] Kanu Rajan DO [address] [place] [address] 10/24/2025 1:30 PM CDT [facility] [address] [place] [address] [place] [address] [place] [address] documented as of this encounter Visit Diagnoses Not on filedocumented in this encounter Additional Health Concerns Infection Onset Date Last Indicated Resolved Time Rule Out COVID-19 12/28/2023 12/28/2023 12/29/2023 12:25 AM CDT Assessment Noted Time PHQ-9 Depression Total Score: 0 04/19/20 10:30 AM CDT documented as of this encounter Care Teams Access Database Developer Relationship Specialty Start Date End Date No Ref-Primary, Physician PCP - General 07/23/22 05/23/23 [place] [address] [place] [address] PCP - General Family Medicine 05/24/23 10/15/24 [place] [address] [place] [address] PCP - General Family Medicine 10/16/24 Alfie Calhoun MD 5[address] [place] [address] Dermatology 02/11/21 Derek Pacheco MD [address] [place] [address] [place] [address] Urology 03/31/21 Bobbi Snell, TYPE DISK QUALITY CONTROL SUPERVISOR 1700 [place] [address] Nurse Practitioner Family Medicine 07/27/22 Alfie Santacruz MD 420 [facility] 276 [place], [place] [address] Critical Care 07/27/22 Derek Pacheco MD 6363 [facility] 500 [place] [address] Assigned Surgical Provider 10/23/22 Milana Elise APRN EVENT AV OPERATOR Assigned PCP 09/10/23 10/10/23 Arik, Milana Coyne APRN EVENT AV OPERATOR Assigned Pain Medication Provider 06/25/23 07/13/23 ArikMilana thomas APRN EVENT AV OPERATOR Assigned PCP 04/30/23 08/11/23 [facility] EVENT AV OPERATOR Assigned PCP 08/12/23 09/09/23 [place] [address] [place] [address] Assigned PCP 10/11/23 Kanu Rajan DO 606 [facility] 106 [place] [address] Assigned Sleep Provider 05/12/24 [place] [address] [place] [address] Family Medicine 07/18/24 Kristal Gamez PA-C [address] [address] Physician Cost Recorder Plastic Surgery 07/18/24 Rashawn Ramirez MD 500 [place] [address] Assigned Dermatology Provider 09/09/24 Karen Lorenz CHW Community Health Worker 10/17/24 Veronique Menendez, RN Lead Vp Cardiovascular Primary Care - CC 10/18/24 documented as of this encounter
--- OUTSIDE RECORDS SUMMARY | 2024-11-25 11:18 | XMS_ITS | Encounter Summary ---
Author Organization [place] Address [address] [place] [place] [address] Care Team Providers Care Seal Delivery Vehicle Team Technician Name Role Phone Deon Iniguez MD Primary Care Provider [phone] Deon Iniguez MD Unavailable [phone] Stevie Gilman MD Unavailable [phone] Shelly Stinson PA-C Unavailable + [phone] Logan Lee MD Unavailable Alfie Calhoun MD Unavailable [phone] Veronika Sommer PA-C Unavailable +[phone] Alfie Calhoun MD Unavailable [phone] Debra Miller PA-C Unavailable Shanel Lerma MD Unavailable +[phone] Derek Pacheco MD Unavailable [phone] Lorene Kruse LP Unavailable [phone] Alfie Calhoun MD Unavailable [phone] No Ref-Primary, Physician Primary Care Provider Bobbi Snell NP Unavailable Alfie Santacruz MD Unavailable +[phone] Derek Pacheco MD Unavailable +[phone] Linda Bhatti NP Unavailable Unavailable Milana Elise APRN CIRCUIT BREAKER ASSEMBLER Unavailable Un available Hedtke, Shanel Fernandes MD Primary Care Provider [phone] ArikMichelljagdeep Coyne APRN CIRCUIT BREAKER ASSEMBLER Unavailable Un available Arik, Milanajagdeep Coyne APRN CIRCUIT BREAKER ASSEMBLER Unavailable Un available Arik, Milanajagdeep Coyne APRN CIRCUIT BREAKER ASSEMBLER Unavailable Un available HedtkeShanel MD Unavailable [phone] Kanu Rajan DO Unavailable +[phone] Shanel Lerma MD Unavailable +[phone] Kristal Gamez PA-C Unavailable +[phone] Rashawn Ramirez MD Unavailable Shanel Lerma MD Primary Care Provider [phone] Karen Lorenz CHW Unavailable [phone] Veronique Menendez RN Unavailable Reason for Visit * Reason Onset Date Comments Pt. Information/instruction 04/30/2019 Encounter Details Date Type Department Care Team (Latest Contact Info) Description 04/30/2019 [facility] Medical Advice [address] [address] Deon Iniguez MD [address] [place] [address] Pt. 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 Gender Identity Male 10/07/2018 12:43 PM CDT Sexual Orientation Straight 01/01/2021 1: 52 PM CDT documented as of this encounter Plan of Treatment Upcoming Encounters Date Type Department Care Team (Late st Contact Info) Description 12/27/2024 2:00 PM CDT Office Visit [facility] [address] [phone] Alfie Calhoun MD 5200 [place] [address] 01/01/2025 11:00 AM CDT Office Visit [facility] Urology [facility] [address] [place] [phone] Derek Pacheco MD [address] [place] [address] 01/21/2025 PRE VISIT [facility] Plastic and Reconstructive Surgery [address] [phone] Kristal Gamez PA-C [address] [place] [address] Previsit 01/21/2025 2:00 PM CDT Office Visit [facility] Plastic and Reconstructive Surgery [address] [phone] [place] [address] [place] [address] Kristal Gamez PA-C [address] [place] [address] 02/28/2025 9:30 AM CDT Virtual Visit [facility] Sleep [address] [phone] Kanu Rajan, DO [address] [address] 10/24/2025 1:30 PM CDT Office Visit [facility] [address] [place] [address] [place] [address] [place] [address] documented as of this encounter Visit Diagnoses Not on filedocumented in this encounter Additional Health Concerns Infection Onset Date Last Indicated Resolved Time Rule Out COVID-19 12/28/2023 12/28/2023 12/29/2023 12:25 AM CDT Assessment Noted Time PHQ-9 Depression Total Score: 0 03/15/20 18 7:16 AM CDT documented as of this encounter Care Teams Seal Delivery Vehicle Team Technician Relationship Specialty Start Date End Date Deon Iniguez MD [address] [place] [phone] PCP - General Internal Medicine 12/08/13 07/08/22 No Ref-Primary, Physician PCP - General 07/23/22 05/23/23 [place] [address] [place] [address] PCP - General Family Medicine 05/24/23 10/15/24 [place] [address] [place] [address] PCP - General Family Medicine 10/16/24 Deon Iniguez MD [address] [place] [phone] Assigned PCP 02/12/18 04/26/20 Stevie Gilman MD [address] [place] [phone] Assigned Surgical Provider 04/11/20 10/18/20 Shelly Stinson PA-C [facility] [employer] [facility] [address] [facility] [address] Assigned PCP 05/11/20 01/17/21 [place] [address] [place] [address] Assigned PCP 04/27/20 05/10/20 Alfie Calhoun MD 5200 [place] [address] Assigned Surgical Provider 10/19/20 01/10/21 Veronika Sommer PA-C [address] [place] [place] [address] Assigned Surgical Provider 01/11/21 04/25/21 Alfie Calhoun MD 5200 [place] [address] Dermatology 02/11/21 Debra Miller PA-C [facility] [address] [place] [address] Assigned PCP 01/18/21 03/14/21 [place] [address] [place] [address] Assigned PCP 03/15/21 01/07/23 Derek Pacheco MD [address] [place] [address] Urology 03/31/21 [place] [address] [facility] [address] [place] [address] Assigned Behavioral Health Provider 05/10/21 07/30/22 Alfie Calhoun MD 5200 [place] [address] Assigned Surgical Provider 04/26/21 10/22/22 Bobbi Snell ELECTROCARDIOGRAPH TECHNICIAN 1700 [place] [address] Nurse Practitioner Family Medicine 07/27/22 Alfie Santcaruz MD [address] [place] [address] 276 [place] [address] Critical Care 07/27/22 Derek Pacheco MD [address] [place] [address] Assigned Surgical Provider 10/23/22 Linda Bhatti NP Assigned PCP 01/08/23 04/29/23 Milana Elise APRN CIRCUIT BREAKER ASSEMBLER Assigned PCP 09/10/23 10/10/23 Milana Elise APRN CIRCUIT BREAKER ASSEMBLER Assigned Pain Medication Provider 06/25/23 07/13/23 Milana Elise APRN CIRCUIT BREAKER ASSEMBLER Assigned PCP 04/30/23 08/11/23 Milana Elise APRN CIRCUIT BREAKER ASSEMBLER Assigned PCP 08/12/23 09/09/23 [place] [address] [place] [address] Assigned PCP 10/11/23 Kanu Rajan DO [address] 890[address] Assigned Sleep Provider 05/12/24 [place] [address] [place], [place] [address] Family Medicine 07/18/24 Kristal Gamez PA-C [address] [place] [id number] Physician Comber Setter Plastic Surgery 07/18/24 Rashawn Ramirez MD [address] [place] [address] 861705 Assigned Dermatology Provider 09/09/24 Karen Lorenz CHW Community Health Worker 10/17/24 Veronique Menendez, RN Lead Data Consultant Primary Care - CC 10/18/24 documented as of this encounter
--- OUTSIDE RECORDS SUMMARY | 2024-11-25 11:19 | XMS_ITS | Encounter Summary ---
Author Organization [facility] Address [address] [place] [address] Care Team Providers Care Qa Software Test Engineer Name Role Phone CurryAlfie fish MD Unavailable [phone] Derek Pacheco MD Unavailable [phone] Bobbi Snell NP Unavailable Alfie Santacruz MD Unavailable [phone] Derek Pacheco MD Unavailable Shanel Lerma MD Primary Care Provider [phone] Shanel Lerma MD Unavailable [phone] Kanu Rajan DO Unavailable [phone] Shanel Lerma MD Unavailable [phone] Kristal Gamez PA-C Unavailable [phone] Rashawn Ramirez MD Unavailable Shanel Lerma MD Primary Care Provider Karen oLrenz Unavailable [phone] Veronique Menendez RN Unavailable Encounter Details Date Type Department Care Team (Late st Contact Info) Description 07/25/2024 MyC Medical Advice Initial Department [facility] Gaytan Social History Tobacco Use Types Packs/Day Years [...] re latives? 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 Gender Identity Male 10/07/2018 12:43 PM CDT Sexual Orientation Straight 01/01/2021 1: 52 PM CDT documented as of this encounter Plan of Treatment Upcoming Encounters Date Type Department Care Team (Late st Contact Info) Description 12/27/2024 2:00 PM CDT Office Visit [address] [phone] Alfie Calhoun MD 5207 [place] [address] 01/01/2025 11:00 AM CDT Office Visit [facility] [place] [address] [place] [phone] Derek Pacheco MD [address] [place] [address] 01/21/2025 PRE VISIT [facility] Plastic and Reconstructive Surgery [address] [phone] Kristal Gamez PA-C [address] [place] [address] Previsit 01/21/2025 2:00 PM CDT Office Visit [facility] Plastic and Reconstructive Surgery [address] [phone] [place] [address] [place] [address] Kristal Gamez PA-C [address] [place] [address] 02/28/2025 9:30 AM CDT Virtual Visit [facility] [address] [phone] Kanu Rajan, DO [address] [place] [address] 10/24/2025 1:30 PM CDT Office Visit [facility] [address] [place] [address] [place] [address] [place] [address] documented as of this encounter Visit Diagnoses Not on filedocumented in this encounter Additional Health Concerns Assessment Noted Time PHQ-9 Depression Total Score: 0 04/19/20 23 10:30 AM CDT documented as of this encounter Care Teams Qa Software Test Engineer Relationship Specialty [place] [address] [place] [address] PCP - General Family Medicine 05/24/23 10/15/24 [place] [address] [place] [address] PCP - General Family Medicine 10/16/24 Alfie Calhoun MD 5200 [place] [address] Dermatology 02/11/21 Derek Pacheco MD [address] [place] [address] Urology 03/31/21 Bobbi Snell FLIGHT COMMUNICATIONS OPERATOR [address] [place] [address] Nurse Practitioner Family Medicine 07/27/22 Alfie Santacruz MD [address] [place] [address] 276 [place] [address] Critical Care 07/27/22 Derek Pacheco MD [address] [place] [address] Assigned Surgical Provider 10/23/22 [place] [address] [place] [address] Assigned PCP 10/11/23 Kanu Rajan DO 606 [facility] 106 [place] [address] Assigned Sleep Provider 05/12/24 [place] [address] [place] [address] Family Medicine 07/18/24 Kristal Gamez PA-C [address] [address] Physician Body Line Finisher Plastic Surgery 07/18/24 Rashawn Ramirez MD 500 [place] [address] Assigned Dermatology Provider 09/09/24 Karen Lorenz CHW Community Health Worker 10/17/24 Veronique eMnendez, RN Lead Engineer Process Primary Care - CC 10/18/24 documented as of this encounter
--- OUTSIDE RECORDS SUMMARY | 2024-11-25 11:19 | XMS_ITS | Encounter Summary ---
Author Organization [place] Address [address] [place] [address] Care Team Providers Care Rigging Slinger Name Role Phone Deon Iniguez MD Primary Care Provider + [phone] Alfie Calhoun MD Unavailable + [phone] Shanel Lerma MD Unavailable [phone] Derek Pacheco MD Unavailable +[phone] Lorene Lan LP Unavailable [phone] Alfie Calhoun MD Unavailable + [phone] No Ref-Primary, Physician Primary Care Provider Bobbi Snell NP Unavailable Alfie Santacruz MD Unavailable [phone] Derek Pacheco MD Unavailable +[phone] Linda Bhatti NP Unavailable Unavailable ArikMilana APRN DISCHARGE SPECIALIST Unavailable Un available HedtShanel adames MD Primary Care Provider [phone] ArikMilana APRN DISCHARGE SPECIALIST Unavailable Un available ArikMilana APRN DISCHARGE SPECIALIST Unavailable Un available ArikMilana APRN DISCHARGE SPECIALIST Unavailable Un available HedtShanel adames MD Unavailable +[phone] Kanu Rajan DO Unavailable [phone] Shanel Lerma MD Unavailable [phone] Kristal Gamez PA-C Unavailable [phone] Rashawn Ramirez MD Unavailable Shanel Lerma MD Primary Care Provider [phone] Gerda Karen CHW Unavailable [phone] [place] Veronique Menendez RN Unavailable Encounter Details Date Type Department Care Team (Late st Contact Info) Description 10/05/2021 MyC Medical Advice [facility] [address] [place] [address] [place] [address] [place] [address] Social History Tobacco Use Types [...] How often do you attend chur or amish services? More than 4 times per year 04/28/2021 Do you belong to any clubs o r organizations such as denominational groups, unions, fraternal or athletic groups, or [...] Answer Date Recorded PHQ-2 Score 0 06/02/2021 [facility] of Occupat ional Health - Occupational Stress [...] place to sleep or slept in a longterm (including now)? 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 Gender Identity Male 10/07/2018 12:43 PM CDT Sexual Orientation Straight 01/01/2021 1: 52 PM CDT documented as of this encounter Plan of Treatment Upcoming Encounters Date Type Department Care Team (Late st Contact Info) Description 12/27/2024 2:00 PM CDT Office Visit [address] [phone] Alfie Calhoun MD 5200 [place] [address] 01/01/2025 11:00 AM CDT Office Visit [facility] Urology [facility] [address] [place] [phone] Derek Pacheco MD [address] [place] [address] 01/21/2025 PRE VISIT [facility] Plastic and Reconstructive Surgery [address] [phone] Kristal Gamez PA-C [address] [place] [address] Previsit 01/21/2025 2:00 PM CDT Office Visit [facility] Plastic and Reconstructive Surgery [address] [phone] [place] [address] [place] [address] Kristal Gamez PA-C [address] [place] [address] 02/28/2025 9:30 AM CDT Virtual Visit [facility] Sleep [address] [phone] Kanu Rajan DO [address] [place] [address] 10/24/2025 1:30 PM CDT Office Visit [facility] [address] [place] [phone] [place] [address] [place] [address] documented as of this encounter Visit Diagnoses Not on filedocumented in this encounter Additional Health Concerns Infection Onset Date Last Indicated Resolved Time Rule Out COVID-19 12/28/2023 12/28/2023 12/29/2023 12:25 AM CDT Assessment Noted Time PHQ-9 Depression Total Score: 9 01/02/20 21 7:03 AM CDT documented as of this encounter Care Teams Rigging Slinger Relationship Specialty Start Date End Date Deon Iniguez MD [address] [place] [phone] PCP - General Internal Medicine 12/08/13 07/08/22 No Ref-Primary, Physician PCP - General 07/23/22 05/23/23 [place] [address] [place] [address] PCP - General Family Medicine 05/24/23 10/15/24 [place] [address] [place] [address] PCP - General Family Medicine 10/16/24 Alfie Calhoun MD 5200 [place] [address] Dermatology 02/11/21 [place] [address] [place] [address] Assigned PCP 03/15/21 01/07/23 Derek Pacheco MD [address] [place], [place] [address] Urology 03/31/21 [place] [address] [facility] 200 [place] [address] Assigned Behavioral Health Provider 05/10/21 07/30/22 Alfie Calhoun MD 5200 [place] [address] Assigned Surgical Provider 04/26/21 10/22/22 Bobbi Snell DIRECTOR VIDEO 1700 [place] [address] Nurse Practitioner Family Medicine 07/27/22 Alfie Santacruz MD [address] [place] [address] 276 [place], [place] 1533[address] Critical Care 07/27/22 Derek Pacheco MD [address] [place] [address] Assigned Surgical Provider 10/23/22 Linda Bhatti NP Assigned PCP 01/08/23 04/29/23 Milana Elise APRN DISCHARGE SPECIALIST Assigned PCP 09/10/23 10/10/23 Milana Elise APRN DISCHARGE SPECIALIST Assigned Pain Medication Provider 06/25/23 07/13/23 Milana Elise APRN DISCHARGE SPECIALIST Assigned PCP 04/30/23 08/11/23 Milana Elise APRN DISCHARGE SPECIALIST Assigned PCP 08/12/23 09/09/23 [place] [address] [place] [address] Assigned PCP 10/11/23 Kanu Rajan DO [address] [place] [address] Assigned Sleep Provider 05/12/24 [place] [address] [place] [address] Family Medicine 07/18/24 Kristal Gamez PA-C [address] [place] [address]7065 Physician Market Analyst Plastic Surgery 07/18/24 Rashawn Ramirez MD 500 [place], [place] [address] Assigned Dermatology Provider 09/09/24 Karen Lorenz CHW Community Health Worker 10/17/24 Veronique Menendez, RN Lead Executive Casino Host Primary Care - CC 10/18/24 documented as of this encounter
--- OUTSIDE RECORDS SUMMARY | 2024-11-25 11:19 | XMS_ITS | Encounter Summary ---
Author Organization [facility] Address [address] [place] [address] Care Team Providers Care Charrer Name Role Phone CurryAlfie fish MD Unavailable Derek Pacheco MD Unavailable Bobbi Snell NP Unavailable Alfie Santacruz MD Unavailable [phone] Derek Pacheco MD Unavailable Shanel Lerma MD Primary Care Provider [phone] Shanel Lerma MD Unavailable +[phone] Kanu Rajan DO Unavailable +[phone] Shanel Lerma MD Unavailable +[phone] Kristal Gamez PA-C Unavailable +[phone] Rashawn Ramirez MD Unavailable Shanel Lerma MD Primary Care Provider Karen Lorenz Unavailable [phone] Veronique Menendez RN Unavailable Encounter Details [...] re latives? 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 Gender Identity Male 10/07/2018 12:43 PM CDT Sexual Orientation Straight 01/01/2021 1: 52 PM CDT documented as of this encounter Plan of Treatment Upcoming Encounters Date Type Department Care Team (Late st Contact Info) Description 12/27/2024 2:00 PM CDT Office Visit [address] [phone] Alfie Calhoun MD [address]208 [place] [address] 01/01/2025 11:00 AM CDT Office Visit [facility] [address] [place] [phone] Derek Pacheco MD [address] [place] [address] 01/21/2025 PRE VISIT [facility] Plastic and Reconstructive Surgery [address] [address] Kristal Gamez PA-C [address] [place] [address] Previsit 01/21/2025 2:00 PM CDT Office Visit [facility] Plastic and Reconstructive Surgery [address] [phone] [place] [address] [place] [address] Kristal Gamez PA-C [address] [place] [address] 02/28/2025 9:30 AM CDT Virtual Visit [facility] Sleep Clinic [address] [phone] Kanu Rajan, DO [address] [place] [address] 10/24/2025 1:30 PM CDT Office Visit [facility] [address] [place] [address] [place] [address] [place] [address] documented as of this encounter Visit Diagnoses Not on filedocumented in this encounter Additional Health Concerns Assessment Noted Time PHQ-9 Depression Total Score: 0 04/19/20 23 10:30 AM CDT documented as of this encounter Care Teams Charrer Relationship Specialty [place] [address] [place] [address] PCP - General Family Medicine 05/24/23 10/15/24 [place] [address] [place] [address] PCP - General Family Medicine 10/16/24 Alfie Calhoun MD 5200 [place] [address] Dermatology 02/11/21 Derek Pacheco MD [address] [place] [address] Urology 03/31/21 Bobbi Snell [facility] [address] [place] [address] Nurse Practitioner Family Medicine 07/27/22 Alfie Santacruz MD [address] [place] [address] 276 [place] [address] Critical Care 07/27/22 Derek Pacheco MD [address] [place] [address] Assigned Surgical Provider 10/23/22 [place] [address] [place] [address] Assigned PCP 10/11/23 Kanu Rajan DO 606 [facility] 106 [place] [address] Assigned Sleep Provider 05/12/24 [place] [address] [place] [address] Family Medicine 07/18/24 Kristal Gamez PA-C [address] [address] Physician Manager Of Health Plastic Surgery 07/18/24 Rashawn Ramirez MD 500 [place] [address] Assigned Dermatology Provider 09/09/24 Karen Lorenz CHW Community Health Worker 10/17/24 Veronique Menendez, RN Lead Gas Check Pad Maker Primary Care - CC 10/18/24 documented as of this encounter
--- OUTSIDE RECORDS SUMMARY | 2024-11-25 11:19 | XMS_ITS | Encounter Summary ---
Author Organization [facility] Address [address] [place] [address] Care Team Providers Care Elevator Operator Name Role Phone Deon Iniguez MD Primary Care Provider + [phone] Domenic Aviles MD Primary Care Provider + [phone] Deon Iniguez MD Primary Care Provider + [phone] Deon Iniguez MD Unavailable [phone] Deon Iniguez MD Unavailable +[phone] Stevie Gilman MD Unavailable +[phone] Shelly Stinson PA-C Unavailable + [phone] Logan Lee MD Unavailable Alfie Calhoun MD Unavailable [phone] Veronika Sommer-C Unavailable +[phone] Alfie Calhoun MD Unavailable +[phone] Debra Miller-C Unavailable Shanel Lemra MD Unavailable +[phone] Derek Pacheco MD Unavailable +[phone] Lorene Kruse LP Unavailable [phone] Alfie Calhoun MD Unavailable [phone] No Ref-Primary, Physician Primary Care Provider Bobbi Snell NP Unavailable Alfie Santacruz MD Unavailable +[phone] Derek Pacheco MD Unavailable +[phone] Linda Bhatti SINGLE STAYER OPERATOR Unavailable Unavailable Arik, Milana Coyne APRN OIL DELIVERER Unavailable Un available Hedtke, Shanel Fernandes MD Primary Care Provider +[phone] Arik, Milana Coyne APRN OIL DELIVERER Unavailable Un available Arik, Milana Coyne APRN OIL DELIVERER Unavailable Un available Arik, Milana Coyne APRN OIL DELIVERER Unavailable Un available Hedtke, Shanel Fernandes MD Unavailable +[phone] Kanu Rajan DO Unavailable +[phone] HedtShanel adames MD Unavailable [phone] Kristal Gamez PA-C Unavailable +[phone] Rashawn Ramirez MD Unavailable Shanel Lerma MD Primary Care Provider [phone] Gerda Karen CHW Unavailable [phone] Veronique Menendez RN Unavailable Encounter Details Date Type Department Care Team (Late st Contact Info) Description 07/13/2012 [facility] [address] [address] Clarisse Allen, RN Social History Tobacco Use Types Packs/Day Years Used Date Smoking Tobacco: Former Cigarettes Q uit: 06/20/1984 Smokeless Tobacco: Never Alcohol Use Standard Drinks/Week Comments No 0 (1 standard drink = 0.6 oz pur e alcohol) Sex and Gender Information Value Date Recorded Sex Assigned at Male 10/07/2018 12:43 PM CDT 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 [address] [place] [phone] Derek Pacheco MD [address] [place], [place] [address] 01/21/2025 PRE VISIT [facility] Plastic and Reconstructive Surgery [address] [phone] Kristal Gamez PA-C [address] [place] [address] Previsit 01/21/2025 2:00 PM CDT Office Visit [facility] Plastic and Reconstructive Surgery [address] [phone] [place] [address] [place] [address] Kristal Gamez PA-C [address] [place] [address] 02/28/2025 9:30 AM CDT Virtual Visit [facility] Sleep Clinic [address] [phone] Kanu Rajan, [address] [place] [address] 10/24/2025 1:30 PM CDT Office Visit [facility] [address] [place] [address] [place] [address] [place] [address] documented as of this encounter Visit Diagnoses Not on filedocumented in this encounter Additional Health Concerns Infection Onset Date Last Indicated Resolved Time Rule Out COVID-19 12/28/2023 12/28/2023 12/29/2023 12:25 AM CDT documented as of this encounter Care Teams Elevator Operator Relationship Specialty Start Date End Date Deon Iniguez MD [address] [place] [phone] PCP - General 08/04/01 12/06/13 Domenic Aviles MD [address] [place] [phone] PCP - General Family Practice 12/07/13 12/07/13 Deon Iniguez MD [address] [place] [address] PCP - General Internal Medicine 12/08/13 07/08/22 Deon Iniguez MD [address] [place] [phone] PCP - Assigned PCP 02/12/18 08/22/18 No Ref-Primary, Physician PCP - General 07/23/22 05/23/23 [place] [address] [place] [address] PCP - General Family Medicine 05/24/23 10/15/24 [place] [address] [place] [address] PCP - General Family Medicine 10/16/24 Deon Iniguez MD [address] [place] [address] Assigned PCP 02/12/18 04/26/20 Stevie Gilman MD [address] [place] [phone] Assigned Surgical Provider 04/11/20 10/18/20 Shelly Stinson PA-C [facility] [address] [place] [address] Assigned PCP 05/11/20 01/17/21 [place] [address] [place] [address] Assigned PCP 04/27/20 05/10/20 Alfie Calhoun MD [address]200 [place] [address] Assigned Surgical Provider 10/19/20 01/10/21 Veronika Sommer PA-C [address] [place] [place] [address] Assigned Surgical Provider 01/11/21 04/25/21 Alfie Calhoun MD 5200 [place] [address] Dermatology 02/11/21 Debra Miller PA-C [facility] [address] [place] [address] Assigned PCP 01/18/21 03/14/21 [place] [address] [place] [address] Assigned PCP 03/15/21 01/07/23 Derek Pacheco MD 6363 [facility] 500 [place] [address] Urology 03/31/21 [place] [address] [facility] 200 [place] [address] Assigned Behavioral Health Provider 05/10/21 07/30/22 Alfie Calhoun MD 5200 [place] [address] Assigned Surgical Provider 04/26/21 10/22/22 Bobbi Snell SINGLE STAYER OPERATOR 1700 [place] [address] Nurse Practitioner Family Medicine 07/27/22 Alfie Santacruz MD [address] [place] [address] Critical Care 07/27/22 Derek Pacheco MD 6363 [facility] 500 [place] [address] Assigned Surgical Provider 10/23/22 Linda Bhatti, CHAPARRITA Assigned PCP 01/08/23 04/29/23 ArikMilana thomas APRN OIL DELIVERER Assigned PCP 09/10/23 10/10/23 Arik, Milana Coyne APRN OIL DELIVERER Assigned Pain Medication Provider 06/25/23 07/13/23 ArikMilana APRN OIL DELIVERER Assigned PCP 04/30/23 08/11/23 ArikMilana APRN OIL DELIVERER Assigned PCP 08/12/23 09/09/23 [place] [address] [place] [address] Assigned PCP 10/11/23 Kanu Rajan DO 606 [facility] 106 [place] [address] Assigned Sleep Provider 05/12/24 [place] [address] [place] [address] Family Medicine 07/18/24 Kristal Gamez PA-C [address] [address] Physician Emergency Vehicle Operator Plastic Surgery 07/18/24 Rashawn Ramirez MD 500 [place] [address] Assigned Dermatology Provider 09/09/24 Karen Lorenz, DEVORAH Community Health Worker 10/17/24 Veronique Menendez, RN Lead Marketing Director Primary Care - CC 10/18/24 documented as of this encounter
--- OUTSIDE RECORDS SUMMARY | 2024-11-25 11:19 | XMS_ITS | Encounter Summary ---
Author Organization [facility] Address [address] [place] [address] Care Team Providers Care Outsole Compressor Name Role Phone Deon Iniguez MD Primary Care Provider + [phone] Alfie Calhoun MD Unavailable + [phone] Shanel Lerma MD Unavailable +[phone] Derek Pacheco MD Unavailable +[phone] Lorene Lan LP Unavailable [phone] Alfie Calhoun MD Unavailable + [phone] No Ref-Primary, Physician Primary Care Provider Bobbi Snell NP Unavailable Alfie Santacruz MD Unavailable [phone] Derek Pacheco MD Unavailable +[phone] Linda Bhatti NP Unavailable Unavailable ArikMilana APRN FOLEY ARTIST Unavailable Un available HedtShanel adames MD Primary Care Provider [phone] ArikMilana APRN FOLEY ARTIST Unavailable Un available ArikMilana APRN FOLEY ARTIST Unavailable Un available ArikMilana APRN FOLEY ARTIST Unavailable Un available HedtShanel adames MD Unavailable +[phone] Kanu Rajan DO Unavailable [phone] Shanel Lerma MD Unavailable [phone] Kristal Gamez PA-C Unavailable Rashawn Ramirez MD Unavailable Shanel Lerma MD Primary Care Provider [phone] Gerda Karen CHW Unavailable [phone] [place] Veronique Menendez RN Unavailable Encounter Details Date Type Department Care Team (Late st Contact Info) Description 02/15/2022 [facility] [address] [place] [address] [place] [address] [place] [address] Social History Tobacco Use Types [...] How often do you attend chur or mormonism services? More than 4 times per year 04/28/2021 Do you belong to any clubs o r organizations such as advent groups, unions, fraternal or athletic groups, or [...] Answer Date Recorded PHQ-2 Score 0 06/02/2021 [facility] Occupat ional Health - [...] place to sleep or slept in a assisted (including now)? 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 Gender Identity Male 10/07/2018 12:43 PM CDT Sexual Orientation Straight 01/01/2021 1: 52 PM CDT documented as of this encounter Plan of Treatment Upcoming Encounters Date Type Department Care Team (Late st Contact Info) Description 12/27/2024 2:00 PM CDT Office Visit [address] [phone] Alfie Calhoun MD 5200 [place] [address] 01/01/2025 11:00 AM CDT Office Visit [facility] Urology [facility] [address] [place] [phone] Derek Pacheco MD [address] [place] [address] 01/21/2025 PRE VISIT [facility] Plastic and Reconstructive Surgery [address] [phone] Kristal Gamez PA-C [address] [place] [address] Previsit 01/21/2025 2:00 PM CDT Office Visit [facility] Plastic and Reconstructive Surgery [address] [phone] [place] [address] [place] [address] Kristal Gamez PA-C [address] [place] [address] 02/28/2025 9:30 AM CDT Virtual Visit [facility] Sleep [address] [phone] Kanu Rajan DO [address] [place] [address] 10/24/2025 1:30 PM CDT Office Visit [facility] [address] [place] [phone] [place] [address] [place] [address] documented as of this encounter Visit Diagnoses Not on filedocumented in this encounter Additional Health Concerns Infection Onset Date Last Indicated Resolved Time Rule Out COVID-19 12/28/2023 12/28/2023 12/29/2023 12:25 AM CDT Assessment Noted Time PHQ-9 Depression Total Score: 9 01/02/20 21 7:03 AM CDT documented as of this encounter Care Teams Outsole Compressor Relationship Specialty Start Date End Date Deon Iniguez MD [address] [place] [phone] PCP - General Internal Medicine 12/08/13 07/08/22 No Ref-Primary, Physician PCP - General 07/23/22 05/23/23 [place] [address] [place] [address] PCP - General Family Medicine 05/24/23 10/15/24 [place] [address] [place] [address] PCP - General Family Medicine 10/16/24 Alfie Calhoun MD 5200 [place] [address] Dermatology 02/11/21 [place] [address] [place] [address] Assigned PCP 03/15/21 01/07/23 Derek Pacheco MD [address] [place], [place] [address] Urology 03/31/21 [place] [address] [facility] 200 [place] [address] Assigned Behavioral Health Provider 05/10/21 07/30/22 Alfie Calhoun MD 5200 [place] [address] Assigned Surgical Provider 04/26/21 10/22/22 Bobbi Snell PLANT CARE WORKER 1700 [place] [address] Nurse Practitioner Family Medicine 07/27/22 Alfie Santacruz MD [address] [place] [address] 276 [place], [place] [address] Critical Care 07/27/22 Derek Pacheco MD [address] [place] [address] Assigned Surgical Provider 10/23/22 Linda Bhatti NP Assigned PCP 01/08/23 04/29/23 Milana Elise APRN FOLEY ARTIST Assigned PCP 09/10/23 10/10/23 Milana Elise APRN FOLEY ARTIST Assigned Pain Medication Provider 06/25/23 07/13/23 Milana Elise APRN FOLEY ARTIST Assigned PCP 04/30/23 08/11/23 Milana Elise APRN FOLEY ARTIST Assigned PCP 08/12/23 09/09/23 [place] [address] [place] [address] Assigned PCP 10/11/23 Kanu Rajan DO [address] [place] [address] Assigned Sleep Provider 05/12/24 [place] [address] [place] [address] Family Medicine 07/18/24 Kristal Gamez PA-C [address] [place] [address] 911515 Physician Ndt Inspector Plastic Surgery 07/18/24 Rashawn Ramirez MD 500 [place], [place] [address] Assigned Dermatology Provider 09/09/24 Karen Lorenz CHW Community Health Worker 10/17/24 Veronique Menendez, RN Lead Lottery Office Manager Primary Care - CC 10/18/24 documented as of this encounter
--- OUTSIDE RECORDS SUMMARY | 2024-11-25 11:19 | XMS_ITS | Encounter Summary ---
Author Organization [facility] Address [address] [place] [address] Care Team Providers Care Sludge Control Attendant Name Role Phone CurryAlfie fish MD Unavailable Derek Pacheco MD Unavailable [phone] Bobbi Snell NP Unavailable Alfie Santacruz MD Unavailable +[phone] Derek Pacheco MD Unavailable Shanel Lerma MD Primary Care Provider [phone] Shanel Lerma MD Unavailable +[phone] Kanu Rajan DO Unavailable +[phone] Shanel Lerma MD Unavailable +[phone] Kristal Gamez PA-C Unavailable +[phone] Rashawn Ramirez MD Unavailable Shanel Lerma MD Primary Care Provider Karen Lorenz Unavailable [phone] Veronique Menendez RN Unavailable Encounter Details [...] re latives? 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 Gender Identity Male 10/07/2018 12:43 PM CDT Sexual Orientation Straight 01/01/2021 1: 52 PM CDT documented as of this encounter Plan of Treatment Upcoming Encounters Date Type Department Care Team (Late st Contact Info) Description 12/27/2024 2:00 PM CDT Office Visit [address] [phone] Alfie Calhoun MD 5201 [place] [address] 01/01/2025 11:00 AM CDT Office Visit [facility] [place] [address] [place] [phone] Derek Pacheco MD [address] [place] [address] 01/21/2025 PRE VISIT [facility] Plastic and Reconstructive Surgery [address] [phone] Kristal Gamez PA-C [address] [place] [address] Previsit 01/21/2025 2:00 PM CDT Office Visit [facility] Plastic and Reconstructive Surgery [address] [phone] [place] [address] [place] [address] Kristal Gamez PA-C [address] [place] [address] 02/28/2025 9:30 AM CDT Virtual Visit [facility] Sleep Clinic [address] [phone] Kanu Rajan, DO [address] [place] [address] 10/24/2025 1:30 PM CDT Office Visit [facility] [address] [place] [address] [place] [address] [place] [address] documented as of this encounter Visit Diagnoses Not on filedocumented in this encounter Additional Health Concerns Assessment Noted Time PHQ-9 Depression Total Score: 0 04/19/20 23 10:30 AM CDT documented as of this encounter Care Teams Sludge Control Attendant Relationship Specialty [place] [address] [place] [address] PCP - General Family Medicine 05/24/23 10/15/24 [place] [address] [place] [address] PCP - General Family Medicine 10/16/24 Alfie Calhoun MD 5200 [place] [address] Dermatology 02/11/21 Derek Pacheco MD [address] [place] [address] Urology 03/31/21 Bobbi Snell ACCOUNT MANAGER RELIEF [address] [place] [address] Nurse Practitioner Family Medicine 07/27/22 Alfie Santacruz MD [address] [place] [address] 276 [place] [address] Critical Care 07/27/22 Derek Pacheco MD [address] [place] [address] Assigned Surgical Provider 10/23/22 [place] [address] [place] [address] Assigned PCP 10/11/23 Kanu Rajan DO 606 [facility] 106 [place] [address] Assigned Sleep Provider 05/12/24 [place] [address] [place] [address] Family Medicine 07/18/24 Kristal Gamez PA-C [address] [address] Physician Silviculture Professor Plastic Surgery 07/18/24 Rashawn Ramirez MD 500 [place] [address] Assigned Dermatology Provider 09/09/24 Karen Lorenz CHW Community Health Worker 10/17/24 Veronique Menendez, RN Lead Travel Service Consultant Primary Care - CC 10/18/24 documented as of this encounter
--- OUTSIDE RECORDS SUMMARY | 2024-11-25 11:19 | XMS_ITS | Encounter Summary ---
Author Organization [facility] Address [address] [place] [address] Care Team Providers Care Group Care Worker Name Role Phone Deon Iniguez MD Primary Care Provider + [phone] Domenic Aviles MD Primary Care Provider + [phone] Deon Iniguez MD Primary Care Provider + [phone] Deon Iniguez MD Unavailable +[phone] Deon Iniguez MD Unavailable +[phone] Stevie Gilman MD Unavailable +[phone] Shelly Stinson PA-C Unavailable + [phone] Logan Lee MD Unavailable Alfie Calhoun MD Unavailable +[phone] Veronika Sommer-C Unavailable +[phone] Alfie Calhoun MD Unavailable +[phone] Debra Miller-C Unavailable Shanel Lerma MD Unavailable +[phone] Derek Pacheco MD Unavailable +[phone] Lorene Kruse LP Unavailable [phone] Alfie Calhoun MD Unavailable +[phone] No Ref-Primary, Physician Primary Care Provider Bobbi Snell NP Unavailable Alfie Santacruz MD Unavailable +[phone] Derek Pacheco MD Unavailable +[phone] Linda Bhatti NUCLEAR EQUIPMENT TEST ENGINEER Unavailable Unavailable Arik, Milana Coyne APRN RESIDENT IN DIAGNOSTIC RADIOLOGY Unavailable Un available Hedtke, Shanel Fernandes MD Primary Care Provider [phone] Arik, Milana Cyone APRN RESIDENT IN DIAGNOSTIC RADIOLOGY Unavailable Un available Arik, Milana Coyne APRN RESIDENT IN DIAGNOSTIC RADIOLOGY Unavailable Un available Arik, Milana Coyne APRN RESIDENT IN DIAGNOSTIC RADIOLOGY Unavailable Un available Hedtke, Shanel Fernandes MD Unavailable +[phone] Satinder Kanubing Jefferson DO Unavailable +[phone] LisatShanel adames MD Unavailable +[phone] Kristal Gamez PA-C Unavailable +[phone] Rashawn Ramirez MD Unavailable Shanel Lerma MD Primary Care Provider [phone] Gerda Karen CHW Unavailable [phone] Veronique Menendez RN Unavailable Encounter Details Date Type Department Care Team (Late st Contact Info) Description 07/11/2012 MyC Medical Advice [address] [address] Deon Iniguez MD [address] [place] [address] Social History Tobacco Use Types Packs/Day Years Used Date Smoking Tobacco: Former Cigarettes Q uit: 06/20/1984 Smokeless Tobacco: Never Alcohol Use Standard Drinks/Week Comments No 0 (1 standard drink = 0.6 oz pur e alcohol) Sex and Gender Information Value Date Recorded Sex Assigned at Male 10/07/2018 12:43 PM CDT 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 Gender Identity Male 10/07/2018 12:43 PM CDT Sexual Orientation Straight 01/01/2021 1: 52 PM CDT documented as of this encounter Plan of Treatment Upcoming Encounters Date Type Department Care Team (Late st Contact Info) Description 12/27/2024 2:00 PM CDT Office Visit [facility] [address] [phone] Alfie Calhoun MD [address] [place] [address] 01/01/2025 11:00 AM CDT Office Visit [facility] Urology [facility] [address] [place] [phone] Derek Pacheco MD [address] [place] [address] 01/21/2025 PRE VISIT [facility] Plastic and Reconstructive Surgery [address] [phone] Kristal Gamez PA-C [address] [place] [address] Previsit 01/21/2025 2:00 PM CDT Office Visit [facility] Plastic and Reconstructive Surgery [address] [phone] [place] [address] [place] [address] Kristal Gamez PA-C [address] [place] [address] 02/28/2025 9:30 AM CDT Virtual Visit [facility] Sleep [address] [phone] Kanu Rajan DO [address] [place], [place] [address] 10/24/2025 1:30 PM CDT Office Visit [facility] [address] [place] [phone] [place] [address] [place] [address] documented as of this encounter Visit Diagnoses Not on filedocumented in this encounter Additional Health Concerns Infection Onset Date Last Indicated Resolved Time Rule Out COVID-19 12/28/2023 12/28/2023 12/29/2023 12:25 AM CDT documented as of this encounter Care Teams Group Care Worker Relationship Specialty Start Date End Date Deon Iniguez MD [address] [place] [address] PCP - General 08/04/01 12/06/13 Domenic Aviles MD [address] [place] [phone] PCP - General Family Practice 12/07/13 12/07/13 Deon Iniguez MD [address] [place] [address] PCP - General Internal Medicine 12/08/13 07/08/22 Deon Iniguez MD [address] [place] [address] PCP - Assigned PCP 02/12/18 08/22/18 No Ref-Primary, Physician PCP - General 07/23/22 05/23/23 [place] [address] [place] [address] PCP - General Family Medicine 05/24/23 10/15/24 [place] [address] [place] [address] PCP - General Family Medicine 10/16/24 Deon Iniguez MD [address] [place] [phone] Assigned PCP 02/12/18 04/26/20 Stevie Gilman MD [address] [address] Assigned Surgical Provider 04/11/20 10/18/20 Shelly Stinson PA-C [facility] [address] [place] [address] Assigned PCP 05/11/20 01/17/21 [place] [address] [place] [address] Assigned PCP 04/27/20 05/10/20 Alfie Calhoun MD [address] [place] [address] Assigned Surgical Provider 10/19/20 01/10/21 Veronika Sommer PA-C [address] [place] [address] Assigned Surgical Provider 01/11/21 04/25/21 Alfie Calhoun MD [address] [place] [address] Dermatology 02/11/21 Debra Miller PA-C [facility] [address] [place] [address] Assigned PCP 01/18/21 03/14/21 [place] [address] [place] [address] Assigned PCP 03/15/21 01/07/23 Derek Pacheco MD [address] [place] [address] Urology 03/31/21 [place] [address] [facility] [address] [place] [address] Assigned Behavioral Health Provider 05/10/21 07/30/22 Alfie Calhoun MD [address] [place] [address] Assigned Surgical Provider 04/26/21 10/22/22 oBbbi Snell NP 1700 [place] [address] Nurse Practitioner Family Medicine 07/27/22 Alfie Santacruz MD 420 [facility] 276 [place] [address] Critical Care 07/27/22 Derek Pacheco MD 6363 [facility] 500 [place], [place] [address] Assigned Surgical Provider 10/23/22 Linda Bhatti, CHAPARRITA Assigned PCP 01/08/23 04/29/23 Milana Elise APRN RESIDENT IN DIAGNOSTIC RADIOLOGY Assigned PCP 09/10/23 10/10/23 ArikMilana APRN RESIDENT IN DIAGNOSTIC RADIOLOGY Assigned Pain Medication Provider 06/25/23 07/13/23 Milana Elise APRN RESIDENT IN DIAGNOSTIC RADIOLOGY Assigned PCP 04/30/23 [facility]23 [facility] RESIDENT IN DIAGNOSTIC RADIOLOGY Assigned PCP 08/12/23 09/09/23 [place] [address] [place] [address] Assigned PCP 10/11/23 Kanu Rajan DO 606 [facility] 106 [place] [address] Assigned Sleep Provider 05/12/24 [place] [address] [place] [address] Family Medicine 07/18/24 Kristal Gamez PA-C [address] [address] Physician [employer]ot [employer] Artillery Plastic Surgery 07/18/24 Rashawn Ramirez MD 500 [place] [address] Assigned Dermatology Provider 09/09/24 Karen Lorenz CHW Community Health Worker 10/17/24 Veronique Menendez, RN Lead Gear Hobber Primary Care - CC 10/18/24 documented as of this encounter
--- OUTSIDE RECORDS SUMMARY | 2024-11-25 11:19 | XMS_ITS | Encounter Summary ---
Author Organization [facility] Address [address] [place] [address] Care Team Providers Care Criminal Intelligence Specialist Name Role Phone CurryAlfie fish MD Unavailable [phone] Derek Pacheco MD Unavailable Bobbi Snell NP Unavailable Alfie Santacruz MD Unavailable [phone] Derek Pacheco MD Unavailable Shanel Lerma MD Primary Care Provider [phone] Shanel Lerma MD Unavailable +[phone] Kanu Rajan DO Unavailable +[phone] Shanel Lerma MD Unavailable +[phone] Kristal Gamez PA-C Unavailable +[phone] Rashawn Ramirez MD Unavailable Shanel Lerma MD Primary Care Provider Karen Lorenz Unavailable [phone] Veronique Menendez RN Unavailable Encounter Details Date Type Department Care Team (Late st Contact Info) Description 09/16/2024 MyC Medical Advice Initial Department Raymond Gaytan [...] re latives? Once a week 10/17/2023 Attends [employer] Not on file 10/16 Active Member [...] 05/27/2023 PHQ-2 Answer Date Recorded PHQ-2 Score 1 09/04/2024 [facility] of Occupat [...] in an abandoned building, in an overnight chcf, or couch-surfing.) Yes 10/17/2023 Are you worried [...] motionally safe where you currently live? Yes 08/03/2024 Within the past 12 months, h ave you been hit, slapped, kicked or otherwise physically hurt by someone? No 08/03/2024 Within the past 12 months, h ave you been humiliated or emotionally abused in other ways by your partner or ex-partner? 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 Gender Identity Male 10/07/2018 12:43 PM CDT Sexual Orientation Straight 01/01/2021 1: 52 PM CDT documented as of this encounter Plan of Treatment Upcoming Encounters Date Type Department Care Team (Late st Contact Info) Description 12/27/2024 2:00 PM CDT Office Visit [address] [phone] Alfie Calhoun MD 5206 [place] [address] 01/01/2025 11:00 AM CDT Office Visit [facility] [address] [place] [phone] Derek Pacheco MD [address] [place] [address] 01/21/2025 PRE VISIT [facility] Plastic and Reconstructive Surgery [address] [address] Kristal Gamez PA-C [address] [place] [address] Previsit 01/21/2025 2:00 PM CDT Office Visit [facility] Plastic and Reconstructive Surgery [address] [phone] [place] [address] [place] [address] Kristal Gamez PA-C [address] [place] [address] 02/28/2025 9:30 AM CDT Virtual Visit [facility] Sleep Clinic [address] [phone] Kanu Rajan, DO [address] [place] [address] 10/24/2025 1:30 PM CDT Office Visit [facility] [address] [place] [address] [place] [address] [place] [address] documented as of this encounter Visit Diagnoses Not on filedocumented in this encounter Additional Health Concerns Assessment Noted Time PHQ-9 Depression Total Score: 0 04/19/20 23 10:30 AM CDT documented as of this encounter Care Teams Criminal Intelligence Specialist Relationship Specialty [place] [address] [place] [address] PCP - General Family Medicine 05/24/23 10/15/24 [place] [address] [place] [address] PCP - General Family Medicine 10/16/24 Alfie Calhoun MD 5200 [place] [address] Dermatology 02/11/21 Derek Pacheco MD [address] [place] [address] Urology 03/31/21 Bobbi Snell TEXTILE WORKER [address] [place] [address] Nurse Practitioner Family Medicine 07/27/22 Alfie Santacruz MD [address] [place] [address] 276 [place] [address] Critical Care 07/27/22 Derek Pacheco MD [address] [place] [address] Assigned Surgical Provider 10/23/22 [place] [address] [place] [address] Assigned PCP 10/11/23 Kanu Rajan DO 606 [facility] 106 [place] [address] Assigned Sleep Provider 05/12/24 [place] [address] [place] [address] Family Medicine 07/18/24 Kristal Gamez PA-C [address] [address] Physician Plant Operator Control Room Operator Plastic Surgery 07/18/24 Rashawn Ramirez MD 500 [place] [address] Assigned Dermatology Provider 09/09/24 Karen Lorenz CHW Community Health Worker 10/17/24 Veronique Menendez, RN Lead Rolloff Truck Driver Primary Care - CC 10/18/24 documented as of this encounter
--- OUTSIDE RECORDS SUMMARY | 2024-11-25 11:19 | XMS_ITS | Encounter Summary ---
Author Organization [facility] Address [address] [place] [address] Care Team Providers Care Sap Portal Consultant Name Role Phone Deon Iniguez MD Primary Care Provider + [phone] Domenic Aviles MD Primary Care Provider + [phone] Deon Iniguez MD Primary Care Provider + [phone] Deon Iniguez MD Unavailable +[phone] Deon Iniguez MD Unavailable +[phone] Stevie Gilman MD Unavailable +[phone] Shelly Stinson PA-C Unavailable + [phone] Logan Lee MD Unavailable Alfie Calhoun MD Unavailable +[phone] Veronika Sommer-C Unavailable +[phone] Alfie Calhoun MD Unavailable +[phone] Debra Miller-C Unavailable Shanel Lerma MD Unavailable +[phone] Derek Pacheco MD Unavailable +[phone] Lorene Kruse LP Unavailable [phone] Alfie Calhoun MD Unavailable +[phone] No Ref-Primary, Physician Primary Care Provider Bobbi Snell NP Unavailable Alfie Santacruz MD Unavailable +[phone] Derek Pacheco MD Unavailable +[phone] Linda Bhatti CURRENCY MACHINE OPERATOR Unavailable Unavailable Arik, Milana Coyne APRN SCHOOL SPEECH LANGUAGE PATHOLOGIST Unavailable Un available Hedtke, Shanel Fernandes MD Primary Care Provider [phone] Arik, Milana Coyne APRN SCHOOL SPEECH LANGUAGE PATHOLOGIST Unavailable Un available Arik, Milana Coyne APRN SCHOOL SPEECH LANGUAGE PATHOLOGIST Unavailable Un available Arik, Milana Coyne APRN SCHOOL SPEECH LANGUAGE PATHOLOGIST Unavailable Un available Hedtke, Shanel Fernadnes MD Unavailable +[phone] Kanu Rajan DO Unavailable +[phone] LisatShanel adames MD Unavailable +[phone] Kristal Gamez PA-C Unavailable +[phone] Rashawn Ramirez MD Unavailable Shanel Lerma MD Primary Care Provider +[phone] Karen Lorenz CHW Unavailable [phone] Veronique Menendez RN Unavailable Encounter Details Date Type Department Care Team (Late st Contact Info) Description 06/22/2012 MyC Medical Advice [facility] [address] [place] [address] Lizette Hart MD [address] [place] [address] Social History Tobacco Use Types Packs/Day Years Used Date Smoking Tobacco: Former Cigarettes Q uit: 06/20/1984 Smokeless Tobacco: Never Alcohol Use Standard Drinks/Week Comments No 0 (1 standard drink = 0.6 oz pur e alcohol) Sex and Gender Information Value Date Recorded Sex Assigned at Male 10/07/2018 12:43 PM CDT 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 Gender Identity Male 10/07/2018 12:43 PM CDT Sexual Orientation Straight 01/01/2021 1: 52 PM CDT documented as of this encounter Plan of Treatment Upcoming Encounters Date Type Department Care Team (Late st Contact Info) Description 12/27/2024 2:00 PM CDT Office Visit [address] [phone] Alfie Calhoun MD 5200 [place] [address] 01/01/2025 11:00 AM CDT Office Visit [facility] Urology [facility] [address] [place] [phone] Derek Pacheco MD [address] [place] [address] 01/21/2025 PRE VISIT [facility] Plastic and Reconstructive Surgery [address] [phone] Kristal Gamez PA-C [address] [place] [address] Previsit 01/21/2025 2:00 PM CDT Office Visit [facility] Plastic and Reconstructive Surgery [address] [phone] [place] [address] [place] [address] Kristal Gamez PA-C [address] [place] [address] 02/28/2025 9:30 AM CDT Virtual Visit [facility] Sleep [address] [phone] Kanu Rajan DO [address] [place] [address] 10/24/2025 1:30 PM CDT Office Visit [facility] [address] [place] [phone] [place] [address] [place] [address] documented as of this encounter Visit Diagnoses Not on filedocumented in this encounter Additional Health Concerns Infection Onset Date Last Indicated Resolved Time Rule Out COVID-19 12/28/2023 12/28/2023 12/29/2023 12:25 AM CDT documented as of this encounter Care Teams Sap Portal Consultant Relationship Specialty Start Date End Date Deon Iniguez MD [address] [place] [address] PCP - General 08/04/01 12/06/13 Domenic Aviles MD [address] [place] [phone] PCP - General Family Practice 12/07/13 12/07/13 Deon Iniguez MD [address] [place] [address] PCP - General Internal Medicine 12/08/13 07/08/22 Deon Iniguez MD [address] [place] [phone] PCP - Assigned PCP 02/12/18 08/22/18 No Ref-Primary, Physician PCP - General 07/23/22 05/23/23 [place] [address] [place] [address] PCP - General Family Medicine 05/24/23 10/15/24 [place] [address] [place] [address] PCP - General Family Medicine 10/16/24 Deon Iniguez MD [address] [place] [phone] Assigned PCP 02/12/18 04/26/20 Stevie Gilman MD [address] [place] [address] Assigned Surgical Provider 04/11/20 10/18/20 Shelly Stinson PA-C [facility] [address] [place] [address] Assigned PCP 05/11/20 01/17/21 [place] [address] [place] [address] Assigned PCP 04/27/20 05/10/20 Alfie Calhoun MD 5200 [place] [address] Assigned Surgical Provider 10/19/20 01/10/21 Veronika Sommer PA-C [address] [place] [address] Assigned Surgical Provider 01/11/21 04/25/21 Alfie Calhoun MD 5200 [place] [address] Dermatology 02/11/21 Debra Miller PA-C [facility] [address] [place] [address] Assigned PCP 01/18/21 03/14/21 [place] [address] [place] [address] Assigned PCP 03/15/21 01/07/23 Derek Pacheco MD [address] [place] [address] Urology 03/31/21 [place] [address] [facility] 200 [place] [address] Assigned Behavioral Health Provider 05/10/21 07/30/22 Alfie Calhoun MD 5200 [place] [address] Assigned Surgical Provider 04/26/21 10/22/22 Bobbi Snell NP 1700 [place] [address] Nurse Practitioner Family Medicine 07/27/22 Alfie Santacruz MD 420 [facility] 276 [place] [address] Critical Care 07/27/22 Derek Pacheco MD 6363 [facility] 500 [place] [address] Assigned Surgical Provider 10/23/22 Linda Bhatti, CURRENCY MACHINE OPERATOR Assigned PCP 01/08/23 04/29/23 Arik, Milana Coyne APRN SCHOOL SPEECH LANGUAGE PATHOLOGIST Assigned PCP 09/10/23 10/10/23 ArikMilana APRN SCHOOL SPEECH LANGUAGE PATHOLOGIST Assigned Pain Medication Provider 06/25/23 07/13/23 Milana Elise APRN SCHOOL SPEECH LANGUAGE PATHOLOGIST Assigned PCP 04/30/23 08/11/23 ArikMilana APRN SCHOOL SPEECH LANGUAGE PATHOLOGIST Assigned PCP 08/12/23 09/09/23 [place] [address] [place] [address] Assigned PCP 10/11/23 Kanu Rajan DO 606 [facility] 106 [place] [address] Assigned Sleep Provider 05/12/24 [place] [address] [facility] [place] [address] Family Medicine 07/18/24 Kristal Gamez PA-C 909 [facility] 4TH FLOOR [place], [place] [address] Physician Plate Slitter And Inspector Plastic Surgery 07/18/24 Rashawn Ramirez MD 500 [place] [address] Assigned Dermatology Provider 09/09/24 Karen Lorenz CHW Community Health Worker 10/17/24 Veronique Menendez, RN Lead Rail Signal Designer Primary Care - CC 10/18/24 documented as of this encounter
--- OUTSIDE RECORDS SUMMARY | 2024-11-25 11:19 | XMS_ITS | Encounter Summary ---
Author Organization [facility] Address [address] [place] [address] Care Team Providers Care Information Coordinator Name Role Phone Alfie Calhoun MD Unavailable Derek Pacheco MD Unavailable Bobbi Snell NP Unavailable Alfie Santacruz MD Unavailable [phone] Derek Pacheco MD Unavailable Shanel Lerma MD Primary Care Provider [phone] Shanel Lerma MD Unavailable +[phone] Kanu Rajan DO Unavailable +[phone] Shanel Lerma MD Unavailable +[phone] Kristal Gamez PA-C Unavailable +[phone] Rashawn Ramirez MD Unavailable Shanel Lerma MD Primary Care Provider [phone] Karen Lorenz Unavailable [phone] Veronique Menendez RN Unavailable Reason for Visit * Reason Onset Date Comments [facility] 07/19/2024 Encounter Details Date Type Department Care Team (Latest Contact Info) Description 07/19/2024 [facility] [address] [phone] Lawrence Shipman RN MyChart Communication Social History Tobacco Use Types Packs/Day Years [...] re latives? 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 Gender Identity Male 10/07/2018 12:43 PM CDT Sexual Orientation Straight 01/01/2021 1: 52 PM CDT documented as of this encounter Plan of Treatment Upcoming Encounters Date Type Department Care Team (Late st Contact Info) Description 12/27/2024 2:00 PM CDT Office Visit [facility] [address] [phone] Alfie Calhoun MD 5927 [place] [address] 01/01/2025 11:00 AM CDT Office Visit [facility] Urology [facility] [address] [place] [address] Derek Pacheco MD 5328 [facility] 500 [place] [address] 01/21/2025 PRE VISIT [facility] Plastic and Reconstructive Surgery [address] [phone] Kristal Gamez PA-C [address] [place] [address] Previsit 01/21/2025 2:00 PM CDT Office Visit [facility] Plastic and Reconstructive Surgery [address] [phone] [place] [address] [place] [address] Kristal Gamez PA-C [address] [place] [address] 02/28/2025 9:30 AM CDT Virtual Visit [address] [phone] Kanu Rajan DO [address] [place] [address] 106 [place], [place] [address] 10/24/2025 1:30 PM CDT Office Visit [facility] [address] [place] [address] [place] [address] [place] [address] documented as of this encounter Visit Diagnoses Not on filedocumented in this encounter Additional Health Concerns Assessment Noted Time PHQ-9 Depression Total Score: 0 04/19/20 23 10:30 AM CDT documented as of this encounter Care Teams Information Coordinator Relationship Specialty [place] [address] [place] [address] PCP - General Family Medicine 05/24/23 10/15/24 [place] [address] [place] [address] PCP - General Family Medicine 10/16/24 Alfie Calhoun MD 5200 [place] [address] Dermatology 02/11/21 Derek Pacheco MD [address] [place] [address] Urology 03/31/21 Bobbi Snell CNC SUPERVISOR 1700 [place] [address] Nurse Practitioner Family Medicine 07/27/22 Alfie Santacruz MD [address] [place] [address] Critical Care 07/27/22 Derek Pacheco MD [address] [place] [address] Assigned Surgical Provider 10/23/22 [place] [address] [place] [address] Assigned PCP 10/11/23 Kanu Rajan DO [address] [address] Assigned Sleep Provider 05/12/24 [place] [address] [place] [address] Family Medicine 07/18/24 Kristal Gamez PA-C [address] [address] Physician Fingernail Former Plastic Surgery 07/18/24 Rashawn Ramirez MD 500 [place] [address] Assigned Dermatology Provider 09/09/24 Karen Lorenz CHW Community Health Worker 10/17/24 Veronique Menendez, RN Lead Supervisor Cigar Processing Primary Care - CC 10/18/24 documented as of this encounter
--- OUTSIDE RECORDS SUMMARY | 2024-11-25 11:19 | XMS_ITS | Encounter Summary ---
Author Organization [place] Address [address] [place] [address] Care Team Providers Care Inspector Sheet Metal Parts Name Role Phone Deno Iniguez MD Primary Care Provider + [phone] Domenic Aviles MD Primary Care Provider + [phone] Deon Iniguez MD Primary Care Provider + [phone] Deon Iniguez MD Unavailable +[phone] Deon Iniguez MD Unavailable [phone] Stevie Gilman MD Unavailable +[phone] Shelly Stisnon PA-C Unavailable + [phone] Logan Lee MD Unavailable Alfie Calhoun MD Unavailable +[phone] Veronika Sommer-C Unavailable +[phone] Alfie Calhoun MD Unavailable [phone] Debra Miller-C Unavailable Shanel Lerma MD Unavailable +[phone] Derek Pacheco MD Unavailable +[phone] Lorene Kruse LP Unavailable [phone] Alfie Calhoun MD Unavailable [phone] No Ref-Primary, Physician Primary Care Provider Bobbi Snell NP Unavailable Alfie Santacruz MD Unavailable +[phone] Derek Pacheco MD Unavailable +[phone] Linda Bhatti URBAN FORESTER Unavailable Unavailable Arik, Milana Coyne APRN PAROLE OFFICER Unavailable Un available Hedtke, Shanel Fernandes MD Primary Care Provider [phone] Arik, Milana Coyne APRN PAROLE OFFICER Unavailable Un available Arik, Milana Coyne APRN PAROLE OFFICER Unavailable Un available Arik, Milana Coyne APRN PAROLE OFFICER Unavailable Un available Hedtke, Shanel Fernandes MD Unavailable +[phone] Satinder Kanubing Jefferson DO Unavailable +[phone] LisatShanel adames MD Unavailable +[phone] Kristal Gamez PA-C Unavailable +[phone] Rashawn Ramirez MD Unavailable Shanel Lerma MD Primary Care Provider +[phone] Gerda Karen CHW Unavailable [phone] Veronique Menendez RN Unavailable Encounter Details Date Type Department Care Team (Late st Contact Info) Description 07/20/2012 MyC Medical Advice [address] [address] Deon Iniguez MD [address] [place] [address] Social History Tobacco Use Types Packs/Day Years Used Date Smoking Tobacco: Former Cigarettes Q uit: 06/20/1984 Smokeless Tobacco: Never Alcohol Use Standard Drinks/Week Comments No 0 (1 standard drink = 0.6 oz pur e alcohol) Sex and Gender Information Value Date Recorded Sex Assigned at Male 10/07/2018 12:43 PM CDT 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 Gender Identity Male 10/07/2018 12:43 PM CDT Sexual Orientation Straight 01/01/2021 1: 52 PM CDT documented as of this encounter Plan of Treatment Upcoming Encounters Date Type Department Care Team (Late st Contact Info) Description 12/27/2024 2:00 PM CDT Office Visit [facility] [address] [phone] Alfie Calhoun MD 5200 [place] [address] 01/01/2025 11:00 AM CDT Office Visit [facility] Urology [facility] [address] [place] [phone] Derek Pacheco MD [address] [place] [address] 01/21/2025 PRE VISIT [facility] Plastic and Reconstructive Surgery [address] [phone] Kristal Gamez PA-C [address] [place] [address] Previsit 01/21/2025 2:00 PM CDT Office Visit [facility] Plastic and Reconstructive Surgery [address] [phone] [place] [address] [place] [address] Kristal Gamez PA-C [address] [place] [address] 02/28/2025 9:30 AM CDT Virtual Visit [facility] Sleep [address] [phone] Kanu Rajan DO [address] [place], [place] [address] 10/24/2025 1:30 PM CDT Office Visit [facility] [address] [place] [phone] [place] [address] [place] [address] documented as of this encounter Visit Diagnoses Not on filedocumented in this encounter Additional Health Concerns Infection Onset Date Last Indicated Resolved Time Rule Out COVID-19 12/28/2023 12/28/2023 12/29/2023 12:25 AM CDT documented as of this encounter Care Teams Inspector Sheet Metal Parts Relationship Specialty Start Date End Date Deon Iniguez MD [address] [place] [address] PCP - General 08/04/01 12/06/13 Domenic Aviles MD [address] [place] [phone] PCP - General Family Practice 12/07/13 12/07/13 Deon Iniguez MD [address] [place] [address] PCP - General Internal Medicine 12/08/13 07/08/22 Deon Iniguez MD [address] [place] [address] PCP - Assigned PCP 02/12/18 08/22/18 No Ref-Primary, Physician PCP - General 07/23/22 05/23/23 [place] [address] [place] [address] PCP - General Family Medicine 05/24/23 10/15/24 [place] [address] [place] [address] PCP - General Family Medicine 10/16/24 Deon Iniguez MD [address] [place] [phone] Assigned PCP 02/12/18 04/26/20 Stevie Gilman MD [address] [address] Assigned Surgical Provider 04/11/20 10/18/20 Shelly Stinson PA-C [facility] [address] [place] [address] Assigned PCP 05/11/20 01/17/21 [place] [address] [place] [address] Assigned PCP 04/27/20 05/10/20 Alfie Calhoun MD 5200 [place] [address] Assigned Surgical Provider 10/19/20 01/10/21 Veronika Sommer PA-C [address] [place] [address] Assigned Surgical Provider 01/11/21 04/25/21 Alfie Calhoun MD 5200 [place] [address] Dermatology 02/11/21 Debra Miller PA-C [facility] [address] [place] [address] Assigned PCP 01/18/21 03/14/21 [place] [address] [place] [address] Assigned PCP 03/15/21 01/07/23 Derek Pacheco MD [address] [place] [address] Urology 03/31/21 [place] [address] [facility] [address] [place] [address] Assigned Behavioral Health Provider 05/10/21 07/30/22 Alfie Calhoun MD 5200 [place] [address] Assigned Surgical Provider 04/26/21 10/22/22 Bobbi Snell NP 1700 [place] [address] Nurse Practitioner Family Medicine 07/27/22 Alfie Santacruz MD 420 [facility] 276 [place] [address] Critical Care 07/27/22 Derek Pacheco MD 6363 [facility] 500 [place], [place] [address] Assigned Surgical Provider 10/23/22 Linda Bhatti, CHAPARRITA Assigned PCP 01/08/23 04/29/23 Milana Elise APRN PAROLE OFFICER Assigned PCP 09/10/23 10/10/23 ArikMilana APRN PAROLE OFFICER Assigned Pain Medication Provider 06/25/23 07/13/23 Milana Elise APRN PAROLE OFFICER Assigned PCP 04/30/23 08/11/23 [facility] PAROLE OFFIC[facility] Assigned PCP 08/12/23 09/09/23 [place] [address] [place] [address] Assigned PCP 10/11/23 Kanu Rajan DO 606 [facility] 106 [place] [address] Assigned Sleep Provider 05/12/24 [place] [address] [place] [address] Family Medicine 07/18/24 Kristal Gamez PA-C [address] [address] Physician Inward Toll Operator Plastic Surgery 07/18/24 Rashawn Ramirez MD 500 [place] [address] Assigned Dermatology Provider 09/09/24 Karen Lorenz CHW Community Health Worker 10/17/24 Veronique Menendez, RN Lead Driver Messenger Primary Care - CC 10/18/24 documented as of this encounter
--- OUTSIDE RECORDS SUMMARY | 2024-11-25 11:19 | XMS_ITS | Patient Health Record ---
Author Organization [facility] Address [address] [id number] Care Team Providers Care Portfolio Manager Name Role Phone PABLO Fried Unavailable [phone] Reason For Referral No Information Medications Medication SIG (Take, Route, Frequency, Duration) Notes Start Date End Date Status Lyrica 75 MG 1 capsule Orally Once a day 9 Active Advil 200 MG 1 tablet with food o r milk as needed Orally Three times a day 01/15/2019 Active Problems Problem Type SNOMED Code ICD Code Onset Dates Problem Status W/U Status Risk Notes Problem [id number] Facet arthriti s of lumbar region (M47.816) Active confirmed Problem [id number] Facet arthritis of lumbosacral region (M47.817) Active confirmed Plan Of Treatment No Information Insurance Providers Payer Name Payer Address Payer Phone Subscriber Number Group Number Insured Name Patient Relationship to Insured Coverage Start Date Coverage End Date [facility] [address] [address] [place], [place] [id number] SP [id number] Self - patient is the insured Medical (General) History Surgical History Surgery Date(Month/Year)
--- OUTSIDE RECORDS SUMMARY | 2024-11-25 11:19 | XMS_ITS | Encounter Summary ---
Author Organization [place] Address [address] [place] [address] Care Team Providers Care Cumulative Effects Analyst Name Role Phone Deon Iniguez MD Primary Care Provider [phone] Deon Iniguez MD Unavailable [phone] Stevie Gilman MD Unavailable [phone] Shelly Stinson PA-C Unavailable + [phone] Lgoan Lee MD Unavailable Alfie Calhoun MD Unavailable [phone] Veronika Sommer PA-C Unavailable +[phone] Alfie Calhoun MD Unavailable [phone] Debra Miller PA-C Unavailable Shanel Lerma MD Unavailable +[phone] Derek Pacheco MD Unavailable [phone] Lorene Kruse LP Unavailable Alfie Calhoun MD Unavailable [phone] No Ref-Primary, Physician Primary Care Provider Bobbi Snell NP Unavailable Alfie Santacruz MD Unavailable +[phone] Derek Pacheco MD Unavailable +[phone] Linda Bhatti NP Unavailable Unavailable Milana Elise APRN WELDING SPECIALIST Unavailable Un available HedtShanel adames MD Primary Care Provider [phone] Arik, Milana Coyne APRN WELDING SPECIALIST Unavailable Un available Arik, Milana Coyne APRN WELDING SPECIALIST Unavailable Un available Arik, Milana Coyne APRN WELDING SPECIALIST Unavailable Un available HedtkeShanel MD Unavailable +[phone] Kanu Rajan DO Unavailable [phone] Shanel Lerma MD Unavailable +[phone] Kristal Gamez PA-C Unavailable +[phone] Rashawn Ramirez MD Unavailable Shaenl Lerma MD Primary Care Provider +[phone] ArtieAudra diazko CHW Unavailable [phone] Veronique Menendez RN Unavailable Encounter Details Date Type Department Care Team (Late st Contact Info) Description 11/07/2019 MyC Medical Advice [address] [address] Shanel Walker PA-C [address] [place] [address] DR TAN [address] [place] [id number] Social History Tobacco Use Types Packs/Day Years [...] CDT 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 Gender Identity Male 10/07/2018 12:43 PM CDT [...] Description 12/27/2024 2:00 PM CDT Office Visit [address] [phone] Alfie Calhoun MD 5200 [place] [address] 01/01/2025 11:00 AM CDT Office Visit [facility] Urology [facility] [address] [place] [phone] Derek Pacheco MD [address] [facility] 500 [place] [address] 01/21/2025 PRE VISIT [facility] Plastic and Reconstructive Surgery [address] [phone] Kristal Gamez PA-C [address] [place] [address] Previsit 01/21/2025 2:00 PM CDT Office Visit [facility] Plastic and Reconstructive Surgery [address] [phone] [place] [address] [place] [address] Kristal Gamez PA-C [address] [place] [address] 02/28/2025 9:30 AM CDT Virtual Visit [facility] Sleep [address] [place] [phone] Kan[address]DO [address] [facility] 106 [place], [place] [address] 10/24/2025 1:30 PM CDT Office Visit [facility] [address] [place] [phone] [place] [address] [place] [address] documented as of this encounter Visit Diagnoses Not on filedocumented in this encounter Additional Health Concerns Infection Onset Date Last Indicated Resolved Time Rule Out COVID-19 12/28/2023 12/28/2023 12/29/2023 12:25 AM CDT Assessment Noted Time PHQ-9 Depression Total Score: 0 03/15/20 18 7:16 AM CDT documented as of this encounter Care Teams Cumulative Effects Analyst Relationship Specialty Start Date End Date Deon Iniguez MD [address] [place] [phone] PCP - General Internal Medicine 12/08/13 07/08/22 No Ref-Primary, Physician PCP - General 07/23/22 05/23/23 [place] [address] [place] [address] PCP - General Family Medicine 05/24/23 10/15/24 [place] [address] [place] [address] PCP - General Family Medicine 10/16/24 Deon Iniguez MD [address] [place] [address] Assigned PCP 02/12/18 04/26/20 Stevie Gilman MD [address] [place] [address] Assigned Surgical Provider 04/11/20 10/18/20 Shelly Stinson PA-C [facility] 2265 [place] [address] Assigned PCP 05/11/20 01/17/21 [place] [address] [place] [address] Assigned PCP 04/27/20 05/10/20 Alfie Calhoun MD 5200 [place] [address] Assigned Surgical Provider 10/19/20 01/10/21 Veronika Sommer PA-C [address] [place] [address] Assigned Surgical Provider 01/11/21 04/25/21 Alfie Calhoun MD 5200 [place] [address] Dermatology 02/11/21 Debra Miller PA-C [facility] [address] [place] [address] Assigned PCP 01/18/21 03/14/21 [place] [address] [place] [address] Assigned PCP 03/15/21 01/07/23 Derek Pachceo MD [address] [place] [address] Urology 03/31/21 [place] [address] [facility] 200 [place] [address] Assigned Behavioral Health Provider 05/10/21 07/30/22 Alfie Calhoun MD 5200 [place] [address] Assigned Surgical Provider 04/26/21 10/22/22 Bobbi Snell SUGAR REFINERY SUPERVISOR 1700 [place] [address] Nurse Practitioner Family Medicine 07/27/22 Alfie Santacruz MD [address] [place] [address] 276 [place] [address] Critical Care 07/27/22 Derek Pacheco MD [address] [place] [address] Assigned Surgical Provider 10/23/22 Linda Bhatti NP Assigned PCP 01/08/23 04/29/23 Milana Elise APRN WELDING SPECIALIST Assigned PCP 09/10/23 10/10/23 Milana Elise APRN WELDING SPECIALIST Assigned Pain Medication Provider 06/25/23 07/13/23 Milana Elise APRN WELDING SPECIALIST Assigned PCP 04/30/23 08/11/23 Milana Elise APRN WELDING SPECIALIST Assigned PCP 08/12/23 09/09/23 [place] [address] [place] [address] Assigned PCP 10/11/23 Kanu Rajan DO [address] [place] [address] Assigned Sleep Provider 05/12/24 [place] [address] [place] [address] Family Medicine 07/18/24 Kristal Gamez PA-C [address] [place] [address] Physician Transmission System Operator Plastic Surgery 07/18/24 Rashawn Ramirez MD 500 [place], [place] [address] Assigned Dermatology Provider 09/09/24 Karen Lorenz CHW Community Health Worker 10/17/24 Veronique Menendez, RN Lead Seed Cleaner Operator Primary Care - CC 10/18/24 documented as of this encounter
--- OUTSIDE RECORDS SUMMARY | 2024-11-25 11:19 | XMS_ITS | Encounter Summary ---
Author Organization [place] Address [address] [place] [address] Care Team Providers Care Information Technology Advisor Name Role Phone CurryAlfie fish MD Unavailable Derek Pacheco MD Unavailable [phone] Bobbi Snell NP Unavailable Alfie Santacruz MD Unavailable [phone] Derek Pacheco MD Unavailable [phone] Shanel Lerma MD Primary Care Provider [phone] Shanel Lerma MD Unavailable [phone] Kanu Rajan DO Unavailable [phone] Shanel Lerma MD Unavailable [phone] Kristal Gamez PA-C Unavailable [phone] Rashawn Ramirez MD Unavailable Shanel Lerma MD Primary Care Provider Karen Lorenz Unavailable [phone] Veronique Menendez RN Unavailable Encounter Details [...] re latives? Once a week 10/17/2023 Attends Restoration Services Not on file 10/16 Active Member [...] Answer Date Recorded PHQ-2 Score 0 07/13/2024 [facility] of Occupat ional Health - Occupational [...] in an abandoned building, in an overnight long term, or couch-surfing.) Yes 10/17/2023 Are you worried [...] Description 12/27/2024 2:00 PM CDT Office Visit [address] [phone] Alfie Calhoun MD 5203 [place] [address] 01/01/2025 11:00 AM CDT Office Visit [facility] [address] [place] [phone] Derek Pacheco MD [address] [place] [address] 01/21/2025 PRE VISIT [facility] Plastic and Reconstructive Surgery [address] [phone] Kristal Gamez PA-C [address] [place] [address] Previsit 01/21/2025 2:00 PM CDT Office Visit [facility] Plastic and Reconstructive Surgery [address] [phone] [place] [address] [place] [address] Kristal Gamez PA-C [address] [place] [address] 02/28/2025 9:30 AM CDT Virtual Visit [facility] [address] [phone] Kanu Rajan, DO [address] [place] [address] 10/24/2025 1:30 PM CDT Office Visit [facility] [address] [place] [address] [place] [address] [place] [address] documented as of this encounter Visit Diagnoses Not on filedocumented in this encounter Additional Health Concerns Assessment Noted Time PHQ-9 Depression Total Score: 0 04/19/20 23 10:30 AM CDT documented as of this encounter Care Teams Information Technology Advisor Relationship Specialty [place] [address] [place] [address] PCP - General Family Medicine 05/24/23 10/15/24 [place] [address] [place] [address] PCP - General Family Medicine 10/16/24 Alfie Calhoun MD 5200 [place] [address] Dermatology 02/11/21 Derek Pacheco MD [address] [place] [address] Urology 03/31/21 Bobbi Snell TIE FASTENER [address] [place] [address] Nurse Practitioner Family Medicine 07/27/22 Alfie Santacruz MD [address] [place] [address] 276 [place] [address] Critical Care 07/27/22 Derek Pacheco MD [address] [place] [address] Assigned Surgical Provider 10/23/22 [place] [address] [place] [address] Assigned PCP 10/11/23 Kanu Rajan DO 606 [facility] 106 [place] [address] Assigned Sleep Provider 05/12/24 [place] [address] [place] [address] Family Medicine 07/18/24 Kristal Gamez PA-C [address] [address] Physician Sat Math Tutor Plastic Surgery 07/18/24 Rashawn Ramirez MD 500 [place] [address] Assigned Dermatology Provider 09/09/24 Karen Lorenz CHW Community Health Worker 10/17/24 Veronique Menendez, RN Lead Industrial Electrician Primary Care - CC 10/18/24 documented as of this encounter
--- OUTSIDE RECORDS SUMMARY | 2024-11-25 11:19 | XMS_ITS ---
Author Organization [facility] Address [address] [place] [address] Care Team Providers Care Power Transmission Engineer Name Role Phone Alfie Calhoun MD Unavailable Derek Pacheco MD Unavailable [phone] Bobbi Snell NP Unavailable Alfie Santacruz MD Unavailable [phone] Derek Pacheco MD Unavailable [phone] Shanel Lerma MD Unavailable Kanu Rajan DO Unavailable [phone] Shanel Lerma MD Unavailable Kristal Gamez PA-C Unavailable Rashawn Ramirez MD Unavailable Shanel Lerma MD Primary Care Provider [phone] Veronique Menendez RN Unavailable Primary Care Care Coordination Status:Enrolled (Active) Start date:10/16/2024 Enrollment date:10/18/2024 Overview If accepts CC, schedule with RN CC. Case Team Name Relationship Phone Veronique Menendez RN(Responsible Staff) Lead Care Coor dinator [phone] Continued Care and Services Coordination
--- OUTSIDE RECORDS SUMMARY | 2024-11-25 11:19 | XMS_ITS | Encounter Summary ---
Author Organization [place] Address [address] [place] [address] Care Team Providers Care Billiard Parlor Manager Name Role Phone CurryAlfie fish MD Unavailable Derek Pacheco MD Unavailable Bobbi Snell NP Unavailable Alfie Santacruz MD Unavailable [phone] Derek Pacheco MD Unavailable [phone] Shanel Lerma MD Primary Care Provider [phone] Shanel Lerma MD Unavailable [phone] Kanu Rajan DO Unavailable [phone] Shanel Lerma MD Unavailable [phone] Kristal Gamez PA-C Unavailable [phone] Rashawn Ramirez MD Unavailable Shanel Lerma MD Primary Care Provider Karen Lorenz Unavailable [phone] Veronique Menendez RN Unavailable Encounter Details Date Type Department Care Team (Late st Contact Info) Description 07/26/2024 [facility] Surgery [place] [address] [facility] [address] [place] [address] Savanna Jaeger, HARRY Social History Tobacco Use Types Packs/Day Years [...] re latives? 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 Gender Identity Male 10/07/2018 12:43 PM CDT Sexual Orientation Straight 01/01/2021 1: 52 PM CDT documented as of this encounter Plan of Treatment Upcoming Encounters Date Type Department Care Team (Late st Contact Info) Description 12/27/2024 2:00 PM CDT Office Visit [address] [phone] Alfie Calhoun MD 3709 [place] [address] 01/01/2025 11:00 AM CDT Office Visit [facility] Urology [facility] [address] [place], [place] [phone] Derek Pacheco MD [address] [place] [address] 01/21/2025 PRE VISIT [facility] Plastic and Reconstructive Surgery [address] [phone] Kristal Gamez PA-C [address] [place] [address] Previsit 01/21/2025 2:00 PM CDT Office Visit [facility] Plastic and Reconstructive Surgery [address] [phone] [place] [address] [place] [address] Kristal Gamez PA-C [address] [place] [address] 02/28/2025 9:30 AM CDT Virtual Visit [facility] Sleep [address] [phone] Kanu Rajan DO [address] [facility] 106 [place] [address] 10/24/2025 1:30 PM CDT Office Visit [facility] [address] [place] [phone] [place] [address] [place] [address] documented as of this encounter Visit Diagnoses Not on filedocumented in this encounter Additional Health Concerns Assessment Noted Time PHQ-9 Depression Total Score: 0 04/19/20 23 10:30 AM CDT documented as of this encounter Care Teams Billiard Parlor Manager Relationship Specialty [place] [address] [place] [address] PCP - General Family Medicine 05/24/23 10/15/24 [place] [address] [place] [address] PCP - General Family Medicine 10/16/24 Alfie Calhoun MD 5200 [place] [address] Dermatology 02/11/21 Derek Pacheco MD [address] [place] [address] Urology 03/31/21 Bobbi Snell, TEST KITCHEN HOME ECONOMIST 1700 [place] [address] Nurse Practitioner Family Medicine 07/27/22 Alfie Santacruz MD [address] [place] [address] Critical Care 07/27/22 Derek Pacheco MD [address] [place] [address] Assigned Surgical Provider 10/23/22 [place] [address] [place] [address] Assigned PCP 10/11/23 Kanu Rajan DO 606 [address]TH [facility] 106 [place] [address] Assigned Sleep Provider 05/12/24 [place] [address] [place] [address] Family Medicine 07/18/24 Kristal Gamez PA-C [address] [address] Physician Dry Primer Powder Blender Plastic Surgery 07/18/24 Rashawn Ramirez MD 500 [place], [place] [address] Assigned Dermatology Provider 09/09/24 Karen Lorenz CHW Community Health Worker 10/17/24 Veronique Menendez, RN Lead Inventory Management Specialist Primary Care - CC 10/18/24 documented as of this encounter
--- OUTSIDE RECORDS SUMMARY | 2024-11-25 11:19 | XMS_ITS | Encounter Summary ---
Author Organization [place] Address [address] [place] [address] Care Team Providers Care Nursing Home Director Name Role Phone Deon Iniguez MD Primary Care Provider + [phone] Alfie Calhoun MD Unavailable + [phone] Shanel Lerma MD Unavailable [phone] Derek Pacheco MD Unavailable [phone] Lorene Kruse LP Unavailable [phone] Alfie Calhoun MD Unavailable + [phone] No Ref-Primary, Physician Primary Care Provider Bobbi Snell NP Unavailable Alfie Santacruz MD Unavailable +[phone] Derek Pacheco MD Unavailable +[phone] Linda Bhatti NP Unavailable Unavailable ArikMilana APRN ORGAN BUILDER Unavailable Un available HedtShanel adames MD Primary Care Provider [phone] ArikMilana APRN ORGAN BUILDER Unavailable Un available ArikMilana APRN ORGAN BUILDER Unavailable Un available ArikMilana APRN ORGAN BUILDER Unavailable Un available HedtShanel adames MD Unavailable +[phone] Kanu Rajan DO Unavailable [phone] Shanel Lerma MD Unavailable +[phone] Kristal Gamez PA-C Unavailable Rashawn Ramirez MD Unavailable Shanel Lerma MD Primary Care Provider [phone] Gerda Karen CHW Unavailable [phone] Veronique Menendez RN Unavailable Encounter Details Date Type Department Care Team (Late st Contact Info) Description 05/21/2022 MyC Medical Advice [facility] [address] [place] [address] [place] [address] [place] [address] Social History Tobacco Use Types [...] How often do you attend chur or sikh services? More than 4 times per year 04/28/2021 Do you belong to any clubs o r organizations such as anabaptism groups, unions, fraternal or athletic groups, or [...] Answer Date Recorded PHQ-2 Score 0 06/02/2021 [facility] of Occupat ional Health [...] place to sleep or slept in a prison (including now)? 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 Gender Identity Male 10/07/2018 12:43 PM CDT Sexual Orientation Straight 01/01/2021 1: 52 PM CDT documented as of this encounter Miscellaneous Notes * Telephone Encounter - Gisel Maldonado RN - 05/21/2022 4:12 PM CST Per chart review: nystatin-triamcinolone (MYCOLOG II) 757128-2.1 UNIT/GM-% external cream (Discontinued) 60 g 1 07/13/2018 08/07/2019 No Sig - Route: Apply topically 2 times daily - Topical Sent to pharmacy as: nystatin-triamcinolone (MYCOLOG II) 258203-5.1 UNIT/GM-% external cream Class: E-Prescribe Reason for Discontinue: Therapy completed Order: [id number] E-Prescribing Status: Receipt confirmed by pharmacy (07/13/2018 ??2:42 PM CAP SEWER) nystatin-triamcinolone (MYCOLOG II) 665267-7.1 UNIT/GM-% external cream (Discontinued) 60 g 1 07/13/2018 08/07/2019 No Sig - Route: Apply topically 2 times daily - Topical Sent to pharmacy as: nystatin-triamcinolone (MYCOLOG II) 576825-6.1 UNIT/GM-% external cream Class: E-Prescribe Reason for Discontinue: Therapy completed Order: [id number] E-Prescribing Status: Receipt confirmed by pharmacy (07/13/2018 ??2:42 PM CAP SEWER) Gisel Griffiths RN SEWER documented in this encounter Plan of Treatment Upcoming Encounters Date Type Department Care Team (Late st Contact Info) Description 12/27/2024 2:00 PM CDT Office Visit [facility] [address] [phone] Alfie Calhoun MD [address] [place] [address] 01/01/2025 11:00 AM CDT Office Visit [facility] Urology [place] [phone] Robyn Arana [facility] 500 [place] [address] Derek Pacheco MD 6363 [facility] 500 [place] [address] 01/21/2025 PRE VISIT [facility] Plastic and Reconstructive Surgery [address] [phone] Kristal Gamez PA-C [address] [place] [address] Previsit 01/21/2025 2:00 PM CDT Office Visit [facility] Plastic and Reconstructive Surgery [address] [phone] [place] [address] [place], [place] [phone] Kristal Gamze PA-C [address] [place] [address] 02/28/2025 9:30 AM CDT Virtual Visit [facility] Sleep [address] [phone] Kanu Rajan, DO 606 [facility] 106 [place], [place] [address] 10/24/2025 1:30 PM CDT Office Visit [facility] [address] [place] [phone] [place] [address] [place] [address] documented as of this encounter Visit Diagnoses Not on filedocumented in this encounter Additional Health Concerns Infection Onset Date Last Indicated Resolved Time Rule Out COVID-19 12/28/202312/2712/28/2023 12/29/2023 12:25 AM CDT Assessment Noted Time PHQ-9 Depression Total Score: 01/02/20 7:03 AM CDT documented as of this encounter Care Teams Nursing Home Director Relationship Specialty Start Date End Date Deon Iniguez MD [address] [place] [address] PCP - General Internal Medicine 12/08/13 07/08/22 No Ref-Primary, Physician PCP - General 07/23/22 05/23/23 [place] [address] [place] [address] PCP - General Family Medicine 05/24/23 10/15/24 [place] [address] [place] [address] PCP - General Family Medicine 10/16/24 Alfie Calhoun MD 5200 [place] [address] Dermatology 02/11/21 [place] [address] [place] [address] Assigned PCP 03/15/21 01/07/23 Derek Pacheco MD [address] [address] Urology 03/31/21 [place] [address] [facility] [address] [place] [address] Assigned Behavioral Health Provider 05/10/21 07/30/22 Alfie Calhoun MD 5200 [place] [address] Assigned Surgical Provider 04/26/21 10/22/22 Bobbi Snell, LIQUOR CLERK 1700 [place] [address] Nurse Practitioner Family Medicine 07/27/22 Alfie Santacruz MD [address] [place] [address] 276 [place] [address] Critical Care 07/27/22 Derek Pacheco MD 6363 [facility] 500 [place] [address] Assigned Surgical Provider 10/23/22 Linda Bhatti NP Assigned PCP 01/08/23 04/29/23 Milana Elise APRN ORGAN BUILDER Assigned PCP 09/10/23 10/10/23 Milana Elise APRN ORGAN BUILDER Assigned Pain Medication Provider 06/25/23 07/13/23 Milana Elise APRN ORGAN BUILDER Assigned PCP 04/30/23 08/11/23 Milana Elise APRN ORGAN BUILDER Assigned PCP 08/12/23 09/09/23 [place] [address] [place] [address] Assigned PCP 10/11/23 Kanu Rajan DO [address] [address] Assigned Sleep Provider 05/12/24 [place] [address] [place] [address] Family Medicine 07/18/24 Kristal Gamez PA-C [address] [address] Physician Load Haul Dump Operator Plastic Surgery 07/18/24 Rashawn Ramirez MD 500 [employer], [place] [address] Assigned Dermatology Provider 09/09/24 Karen Lorenz CHW Community Health Worker 10/17/24 Veronique Menendez, RN Lead Cone Runner Primary Care - CC 10/18/24 documented as of this encounter
--- OUTSIDE RECORDS SUMMARY | 2024-11-25 11:19 | XMS_ITS | Encounter Summary ---
Author Organization [place] Address [address] [place] [address] Care Team Providers Care Service Technician Name Role Phone Alfie Calhoun MD Unavailable Derek Pacheco MD Unavailable Bobbi Snell NP Unavailable Alfie Santacruz MD Unavailable [phone] Derek Pacheco MD Unavailable Shanel Lerma MD Primary Care Provider [phone] Shanel Lerma MD Unavailable Kanu Rajan DO Unavailable [phone] Shanel Lerma MD Unavailable [phone] Kristal Gamez PA-C Unavailable [phone] Rashawn Ramirez MD Unavailable Shanel Lerma MD Primary Care Provider Karen Lorenz Unavailable [phone] Veronique Menendez RN Unavailable Encounter Details Date Type Department Care Team (Late st Contact Info) Description 07/25/2024 [facility] [address] [place] [address] Uli Nassar MD [address] [place] [address] Social History Tobacco Use Types Packs/Day Years [...] Answer Date Recorded PHQ-2 Score 0 07/13/2024 [facility] of Occupat ional Health - Occupational Stress [...] in an overnight mcc, or couch-surfing.) Yes 10/17/2023 Are you worried [...] PM CDT 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 [id number] 01/01/2025 11:00 AM CDT Office Visit [facility] U[facility] [address] [place] [phone] Derek Pacheco MD 6363 [facility] 500 [place] [address] 01/21/2025 PRE VISIT [facility] Plastic and Reconstructive Surgery [address] [phone] Kristal Gamez PA-C [address] [place] [address] Previsit 01/21/2025 2:00 PM CDT Office Visit [facility] Plastic and Reconstructive Surgery [address] [phone] [place] [address] [place] [address] Kristal Gamez PA-C [address] [place] [address] 02/28/2025 9:30 AM CDT Virtual Visit [address] 202 [place] [phone] Kanu Rajan, DO [address] [place] [address] 106 [place] [address] 10/24/2025 1:30 PM CDT Office Visit [facility] [address] [place] [phone] [place] [address] [place] [address] documented as of this encounter Visit Diagnoses Not on filedocumented in this encounter Additional Health Concerns Assessment Noted Time PHQ-9 Depression Total Score: 0 04/19/20 10:30 AM CDT documented as of this encounter Care Teams Service Technician Relationship Specialty [place] [address] [place] [address] PCP - General Family Medicine 05/24/23 10/15/24 [place] [address] [place] [address] PCP - General Family Medicine 10/16/24 Alfie Calhoun MD 5200 [place] [address] Dermatology 02/11/21 Derek Pacheco MD [address] [employer] [address] [address] [place] [address] Urology 03/31/21 Bobbi Snell LEAD ETL DEVELOPER [address] [place] [address] Nurse Practitioner Family Medicine 07/27/22 Alfie Santacruz MD [address] [place] [address] Critical Care 07/27/22 Derek Pacheco MD [address] [place] [address] Assigned Surgical Provider 10/23/22 [place] [address] [place] [address] Assigned PCP 10/11/23 Kanu Rajan DO [address] [place] [address] Assigned Sleep Provider 05/12/24 [place] [address] [place] [address] Family Medicine 07/18/24 Kristal Gamez PA-C [address] [address] Physician Director Of Primary Plastic Surgery 07/18/24 Rashawn Ramirez MD 500 [place] [address] Assigned Dermatology Provider 09/09/24 Karen Lorenz CHW Community Health Worker 10/17/24 Veronique Menendez, RN Lead Health Program Specialist Primary Care - CC 10/18/24 documented as of this encounter
--- OUTSIDE RECORDS SUMMARY | 2024-11-25 11:19 | XMS_ITS | Encounter Summary ---
Author Organization [place] Address [address] [place] [address] Care Team Providers Care Events Traffic Controller Name Role Phone Alfie Calhoun MD Unavailable [phone] Shanel Lerma MD Unavailable [phone] Derek Pacheco MD Unavailable [phone] No Ref-Primary, Physician Primary Care Provider Bobbi Snell NP Unavailable Alfie Santacruz MD Unavailable [phone] Derek Pacheco MD Unavailable [phone] Linda Bhatti NP Unavailable Unavailable ArikMilana APRN GLACIOLOGIST Unavailable Un available HedtShanel adames MD Primary Care Provider [phone] ArikMilana APRN GLACIOLOGIST Unavailable Un available ArikMilana APRN GLACIOLOGIST Unavailable Un available ArikMilana APRN GLACIOLOGIST Unavailable Un available HedtShanel adames MD Unavailable [phone] Kanu Rajan DO Unavailable [phone] Shanel Lerma MD Unavailable +[phone] Kristal Gamez PA-C Unavailable +[phone] Rashawn Ramirez MD Unavailable Shanel Lerma MD Primary Care Provider [phone] Karen Lorenz Unavailable [phone] Veronique June RN Unavailable Encounter Details Date Type Department Care Team (Late st Contact Info) Description 11/01/2022 MyC Medical Advice [facility] [address] [place] [address] Val Mohamud MA Social History Tobacco Use Types Packs/Day Years [...] week 04/28/2021 How often do you attend [facility] or rastafarian services? 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 No / Unsure 11/02/2022 8:49 AM CDT documented as of this encounter Plan of Treatment Upcoming Encounters Date Type Department Care Team (Late st Contact Info) Description 12/27/2024 2:00 PM CDT [facility] [address] [phone] Alfie Calhoun MD 5204 [place] [address] 01/01/2025 11:00 AM CDT Office Visit [facility] Urology [facility] [address] [place] [phone] Derek Pacheco MD [address] [place] [address] 01/21/2025 PRE VISIT [facility] Plastic and Reconstructive Surgery [address] [phone] Kristal Gamez PA-C [address] [place] [address] Previsit 01/21/2025 2:00 PM CDT Office Visit [facility] Plastic and Reconstructive Surgery [address] [phone] [place] [address] [place] [address] Kristal Gamez PA-C [address] [place] [address] 02/28/2025 9:30 AM CDT Virtual Visit [facility] Sleep [address] [phone] Kanu Rajan DO [address] [place] [address] 10/24/2025 1:30 PM CDT Office Visit [facility] [address] [place] [address] [place] [address] [place] [address] documented as of this encounter Visit Diagnoses Not on filedocumented in this encounter Additional Health Concerns Infection Onset Date Last Indicated Resolved Time Rule Out COVID-19 12/28/2023 12/28/2023 12/29/2023 12:25 AM CDT Assessment Noted Time PHQ-9 Depression Total Score: 9 01/02/20 7:03 AM CDT documented as of this encounter Care Teams Events Traffic Controller Relationship Specialty Start Date End Date No Ref-Primary, Physician PCP - General 07/23/22 05/23/23 [place] [address] [place] [address] PCP - General Family Medicine 05/24/23 10/15/24 [place] [address] [place] [address] PCP - General Family Medicine 10/16/24 Alfie Calhoun MD 5200 [place] [address] Dermatology 02/11/21 [place] [address] [place] [address] Assigned PCP 03/15/21 01/07/23 Derek Pacheco MD [address] [place] [address] [place] [address] Urology 03/31/21 Bobbi Snell, SHIPPING SUPERVISOR 1700 [place] [address] Nurse Practitioner Family Medicine 07/27/22 Alfie Santacruz MD [address] [place] [address] 276 [place], [place] [address] Critical Care 07/27/22 Derek Pacheco MD 6363 [facility] 500 [place], [place] [address] Assigned Surgical Provider 10/23/22 Linda Bhatti NP Assigned PCP 01/08/23 04/29/23 Milana Elise APRN GLACIOLOGIST Assigned PCP 09/10/23 10/10/23 Milana Elise APRN GLACIOLOGIST Assigned Pain Medication Provider 06/25/23 07/13/23 Milana Elise APRN GLACIOLOGIST Assigned PCP 04/30/23 08/11/23 Milana Elise APRN GLACIOLOGIST Assigned PCP 08/12/23 09/09/23 [place] [address] [place] [address] Assigned PCP 10/11/23 Kanu Rajan DO 606 [facility] 106 [place] [address] Assigned Sleep Provider 05/12/24 [place] [address] [place] [address] Family Medicine 07/18/24 Kristal Gamez PA-C [address] [address] Physician Roll On Worker Plastic Surgery 07/18/24 Rashawn Ramirez MD 500 [place] [address] Assigned Dermatology Provider 09/09/24 Karen Lorenz CHW Community Health Worker 10/17/24 Veronique Menendez, RN Lead Activated Sludge Operator Primary Care - CC 10/18/24 documented as of this encounter
--- OUTSIDE RECORDS SUMMARY | 2024-11-25 11:20 | XMS_ITS | Encounter Summary ---
Author Organization [place] Address [address] [place] [address] Care Team Providers Care [employer] Medic Name Role Phone Alfie Calhoun MD Unavailable Derek Pacheco MD Unavailable [phone] Bobbi Snell NP Unavailable Alfie Santacruz MD Unavailable [phone] Derek Pacheco MD Unavailable [phone] Shanel Lerma MD Unavailable Satinder Kanu Li DOMINGUEZ Unavailable Shanel Lerma MD Unavailable [phone] Kristal Gamez PA-C Unavailable Rashawn Ramirez MD Unavailable Shanel Lerma MD Primary Care Provider Veronique Menendez RN Unavailable Encounter Details Date Type Department Care Team (Late st Contact Info) Description 11/15/2024 Results Follow-Up [facility] [address] [place] [address] [place] [address] [place] [address] Subj: Message about your results Social History Tobacco Use Types Packs/Day Years [...] friends or re latives? 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 Gender Identity Male 10/07/2018 12:43 PM CDT Sexual Orientation Straight 01/01/2021 1: 52 PM CDT documented as of this encounter Plan of Treatment Upcoming Encounters Date Type Department Care Team (Late st Contact Info) Description 12/27/2024 2:00 PM CDT Office Visit [address] [phone] Alfie Calhoun MD 4480 [place] [address] 01/01/2025 11:00 AM CDT Office Visit [facility] Urology [facility] [address] [place] [phone] Derek Pacheco MD [address] [place] [address] 01/21/2025 PRE VISIT [facility] Plastic and Reconstructive Surgery [address] [phone] Kristal Gamez PA-C [address] [place] [address] Previsit 01/21/2025 2:00 PM CDT Office Visit [facility] Plastic and Reconstructive Surgery [address] [phone] [place] [address] [place] [address] Kristal Gamez PA-C [address] [place] [address] 02/28/2025 9:30 AM CDT Virtual Visit [facility] Sleep [address] 202 [place] [phone] Kanu Rajan, DO 606 [facility] 106 [place] [address] 10/24/2025 1:30 PM CDT Office Visit [address] [phone] [place] [address] [place], [place] [address] documented as of this encounter Goals Goal Patient Goal Type Associated Problems Recent Progress Patient-Stated? Author Become up-to-date with health maintenance visit(s) Care Plan Health Maintenance Due or Overdue 10%( 11:08 AM CDT) Veronique EscaleraÁLVARO Note: Barriers: Limited mobility; Financial limitations; Provider [...] clinic with 24/7 after hours services available. Operations Lieutenant will remain available as needed. Resources for [...] with any questions. I will contact my Operations Lieutenant if additional resources are needed or desired. 3. I will contact my care team with questions, concerns or support needs. I will use the clinic as a resource and I understand I can contact my clinic with 24/7 after hours services available. Operations Lieutenant will remain available as needed. Complete Health [...] 1. I will review the resource for Maishaing Oleg (department within [place] that can assist with completing Advance Care [...] clinic with 24/7 after hours services available. Operations Lieutenant will remain available as needed. documented as of this encounter Visit Diagnoses Not on filedocumented in this encounter Additional Health Concerns Active Problems Noted Date Diagnosed Date Health Maintenance Due or Overdue 10/19/2024 Resources 10/19/2024 Patient does not have a valid Health Care Direct marciano 10/19/2024 Assessment Noted Time PHQ-9 Depression Total Score: 6 10/17/19 25 8:48 AM CDT documented as of this encounter Care Teams [employer] Medic Relationship Specialty [place] [address] [place] [address] PCP - General Family Medicine 10/16/24 Alfie Calhoun MD 5200 [place] [address] Dermatology 02/11/21 Derek Pacheco MD [address] [place] [address] Urology 03/31/21 Bobbi Snell ECONOMIC RESEARCH ASSISTANT 1700 [place] [address] Nurse Practitioner Family Medicine 07/27/22 Alfie Santacruz MD [address] [address] Critical Care 07/27/22 Derek Pacheco MD [address] [place] [address] Assigned Surgical Provider 10/23/22 [place] [address] [place] [address] Assigned PCP 10/11/23 Kanu Rajan DO 606 [address] [facility] 106 [place] [address] Assigned Sleep Provider 05/12/24 [place] [address] [place] [address] Family Medicine 07/18/24 Kristal Gamez PAAfshinC [address] [place] [address] Physician Professional Security Officer Plastic Surgery 07/18/24 Rashawn Ramirez MD 500 [place] [address] Assigned Dermatology Provider 09/09/24 Veronique Menendez RN Lead Operations Lieutenant Primary Care - CC 10/18/24 documented as of this encounter
--- OUTSIDE RECORDS SUMMARY | 2024-11-25 11:20 | XMS_ITS | Encounter Summary ---
Author Organization [facility] Address [address] [place] [address] Care Team Providers Care Home Care Scheduler Name Role Phone CurryAlfie fish MD Unavailable [phone] Derek Pacheco MD Unavailable Bobbi Snell NP Unavailable Alfie Santacruz MD Unavailable [phone] Derek Pacheco MD Unavailable Shanel Lerma MD Unavailable [phone] Kanu Rajan DO Unavailable [phone] Shanel Lerma MD Unavailable [phone] Kristal Gamez PA-C Unavailable [phone] Rashawn Ramirez MD Unavailable Shanel Lerma MD Primary Care Provider [phone] Veronique Menendez RN Unavailable Encounter Details Date Type Department Care Team (Latest Contact Info) Description 11/14/2024 Travel Social History Tobacco Use Types Packs/Day Years [...] friends or re latives? 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 Gender Identity Male 10/07/2018 12:43 PM CDT Sexual Orientation Straight 01/01/2021 1: 52 PM CDT documented as of this encounter Plan of Treatment Upcoming Encounters Date Type Department Care Team (Late st Contact Info) Description 12/27/2024 2:00 PM CDT Office Visit [address] [phone] Alfie Calhoun MD [facility]0 [place] [address] 01/01/2025 11:00 AM CDT Office Visit [facility] [place] [address] [place] [phone] Derek Pacheco MD [address] [place] [address] 01/21/2025 PRE VISIT [facility] [address] [phone] Kristal Gamez PA-C [address] [place] [address] [phone] [phone] 01/21/2025 2:00 PM CDT Office Visit [facility] Plastic and Reconstructive Surgery [facility] [address] [phone] [place] [address] [place] [address] Kristal Gamez PA-C [address] [place] [address] 02/28/2025 9:30 AM CDT Virtual Visit [facility] Sleep [address] 202 [place] [address] Kanu Rajan, DO [address] [place] [address] 106 [place] [address] 10/24/2025 1:30 PM CDT Office Visit [facility] [address] [place] [phone] [place] [address] [place] [address] documented as of this encounter Goals Goal Patient Goal Type Associated Problems Recent Progress Patient-Stated? Author Become up-to-date with health maintenance visit(s) Care Plan Health Maintenance Due or Overdue 10%( 11:08 AM CDT) No Veronique Menendez RN Note: Barriers: Limited mobility; Financial limitations; [...] clinic with 24/7 after hours services available. Cold Working Supervisor will remain available as needed. Resources [...] with any questions. I will contact my Cold Working Supervisor if additional resources are needed or desired. 3. I will contact my care team with questions, concerns or support needs. I will use the clinic as a resource and I understand I can contact my clinic with 24/7 after hours services available. Cold Working Supervisor will remain available as needed. Complete [...] the resource for Elizabeth Dejesus (department within [facility] that can assist with completing Advance Care Planning documents. 2. I will contact Remicalmmarbella Dejesus with any questions or when I am ready to complete my Advance Care Planning documents. 3. I will contact my care team with questions, concerns or support needs. I will use the clinic as a resource and I understand I can contact my clinic with 24/7 after hours services available. Cold Working Supervisor will remain available as needed. documented as [...] documented as of this encounter Care Teams Home Care Scheduler Relationship Specialty [place] [address] [place] [address] PCP - General Family Medicine 10/16/24 Alfie Calhoun MD 5200 [place] [address] Dermatology 02/11/21 Dreek Pacheco MD [address] [place] [address] Urology 03/31/21 Bobbi Snell, LEATHER GOODS II ASSEMBLER 1700 [place] [address] Nurse Practitioner Family Medicine 07/27/22 Alfie Santacruz MD 420 [facility] 276 [place] [address] Critical Care 07/27/22 Derek Pacheco MD [address] [place] [address] Assigned Surgical Provider 10/23/22 [place] [address] [place] [address] Assigned PCP 10/11/23 Kanu Rajan DO 606 [facility] 106 [place] [address] Assigned Sleep Provider 05/12/24 [place] [address] [place] [address] Family Medicine 07/18/24 Kristal Gamez PA-C [address] [place] [address] Physician Histology Supervisor Plastic Surgery 07/18/24 Rashawn Ramirez MD 500 [place] [address] Assigned Dermatology Provider 09/09/24 Veronique Menendez, RN Lead Cold Working Supervisor Primary Care - CC 10/18/24 documented as of this encounter
--- OUTSIDE RECORDS SUMMARY | 2024-11-25 11:20 | XMS_ITS | Encounter Summary ---
Author Organization [facility] Address [address] [place] [address] Care Team Providers Care Graduate School Dean Name Role Phone Alfie Calhoun MD Unavailable + [phone] Shanel Lerma MD Unavailable [phone] Derek Pacheco MD Unavailable [phone] No Ref-Primary, Physician Primary Care Provider Bobbi Snell NP Unavailable Alfie Santacruz MD Unavailable [phone] Derek Pacheco MD Unavailable [phone] Linda Bhatti NP Unavailable Unavailable ArikMilana APRN HVAC R TECH Unavailable Un available HedtShanel adames MD Primary Care Provider [phone] ArikMilana APRN HVAC R TECH Unavailable Un available ArikMilana APRN HVAC R TECH Unavailable Un available ArikMilana APRN HVAC R TECH Unavailable Un available HedtShanel adames MD Unavailable [phone] Kanu Rajan DO Unavailable [phone] Shanel Lerma MD Unavailable [phone] Kristal Gamez PA-C Unavailable [phone] Rashawn Ramirez MD Unavailable Shanel Lerma MD Primary Care Provider [phone] Karen Lorenz Unavailable [phone] Veronique June RN Unavailable Encounter Details Date Type Department Care Team (Late st Contact Info) Description 11/04/[address] [facility] [address] [facility] [address] [place] [address] Dilcia Bacon Social History Tobacco Use Types Packs/Day Years [...] week 04/28/2021 How often do you attend [facility] or quaker services? More than 4 times per year 04/28/2021 Do you belong to any clubs o r organizations such as mandaeism groups, unions, fraternal or athletic groups, or [...] Answer Date Recorded PHQ-2 Score 0 06/02/2021 [facility] [place] of Occupat ional Health - Occupational Stress [...] place to sleep or slept in a fdc (including now)? 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 Urology [facility] [address] [place] [phone] Derek Pacheco MD [address] [facility] [address] [place], [place] [address] 01/21/[address] [facility] Plastic and Reconstructive Surgery [address] [phone] Kristal Gamez PAAfshinC [address] [place] [place] [address] Previsit 01/21/2025 2:00 PM CDT Office Visit [facility] Plastic and Reconstructive Surgery [address] [phone] [place] [address] [place] [address] Kristal Gamez PA-C [address] [place] [address] 02/28/2025 9:30 AM CDT Virtual Visit [facility] Sleep [address] [phone] Kanu Rajan DO [address] [place], [place] [address] 10/24/2025 1:30 PM CDT Office Visit [facility] [address] [place] [address] [place] [address] [place] [address] documented as of this encounter Visit Diagnoses Not on filedocumented in this encounter Additional Health Concerns Infection Onset Date Last Indicated Resolved Time Rule Out COVID-19 12/28/2023 12/28/2023 12/29/2023 12:25 AM CDT Assessment Noted Time PHQ-9 Depression Total Score: 9 01/02/20 7:03 AM CDT documented as of this encounter Care Teams Graduate School Dean Relationship Specialty Start Date End Date No Ref-Primary, Physician PCP - General 07/23/22 05/23/23 [place] [address] [place] [address] PCP - General Family Medicine 05/24/23 10/15/24 [place] [address] [place] [address] PCP - General Family Medicine 10/16/24 Alfie Calhoun MD 5200 [place] [address] Dermatology 02/11/21 [place] [address] [place] [address] Assigned PCP 03/15/21 01/07/23 Derek Pacheco MD [address] [place] [address] [place] [address] Urology 03/31/21 Bobbi Snell, ASSEMBLY ADJUSTER 1700 [place] [address] Nurse Practitioner Family Medicine 07/27/22 Alfie Santacruz MD [address] [place] [address] 276 [place], [place] [address] Critical Care 07/27/22 Derek Pacheco MD 6363 [facility] 500 [place] [address] Assigned Surgical Provider 10/23/22 Linda Bhatti NP Assigned PCP 01/08/23 04/29/23 Milana Elise APRN HVAC R TECH Assigned PCP 09/10/23 10/10/23 Milana Elise APRN HVAC R TECH Assigned Pain Medication Provider 06/25/23 07/13/23 Milana Elise APRN HVAC R TECH Assigned PCP 04/30/23 08/11/23 Milana Elise APRN HVAC R TECH Assigned PCP 08/12/23 09/09/23 [place] [address] [place] [address] Assigned PCP 10/11/23 Kanu Rajan DO 606 [facility] 106 [place] [address] Assigned Sleep Provider 05/12/24 [place] [address] [place] [address] Family Medicine 07/18/24 Kristal Gamez PA-C [address] [address] Physician Nursing Informatics Clinical Analyst Plastic Surgery 07/18/24 Rashawn Ramirez MD [address] [place] [address] Assigned Dermatology Provider 09/09/24 Karen Lorenz CHW Community Health Worker 10/17/24 Veronique Menendez, RN Lead Acrobatic Rigger Primary Care - CC 10/18/24 documented as of this encounter
--- OUTSIDE RECORDS SUMMARY | 2024-11-25 11:20 | XMS_ITS | Encounter Summary ---
Author Organization [facility] Address [address] [place] [address] Care Team Providers Care Food Assembler Name Role Phone Alfie Calhoun MD Unavailable [phone] Shanel Lerma MD Unavailable [phone] Derek Pacheco MD Unavailable [phone] No Ref-Primary, Physician Primary Care Provider Bobbi Snell NP Unavailable Alfie Santacruz MD Unavailable [phone] Derek Pacheco MD Unavailable [phone] Linda Bhatti NP Unavailable Unavailable ArikMilana APRN CHILD SUPPORT SPECIALIST Unavailable Un available HedtShanel adames MD Primary Care Provider [phone] ArikMilana APRN CHILD SUPPORT SPECIALIST Unavailable Un available ArikMilana APRN CHILD SUPPORT SPECIALIST Unavailable Un available ArikMilana APRN CHILD SUPPORT SPECIALIST Unavailable Un available HedtShanel adames MD Unavailable [phone] Kanu Rajan DO Unavailable [phone] Shanel Lerma MD Unavailable [phone] Kristal Gamez PA-C Unavailable [phone] Rashawn Ramirez MD Unavailable Shanel Lerma MD Primary Care Provider [phone] Karen Lorenz Unavailable [phone] Veronique June RN Unavailable Encounter Details Date Type Department Care Team (Late st Contact Info) Description 11/24/2022 [facility] [place] [address] [place] [address] [place] Social History Tobacco Use Types Packs/Day Years [...] week 04/28/2021 How often do you attend [facility] or jewish services? More than 4 times per year 04/28/2021 Do you belong to any clubs o r organizations such as methodist groups, unions, fraternal or athletic groups, or [...] Answer Date Recorded PHQ-2 Score 0 06/02/2021 [facility] [place] of Occupat ional Health - Occupational Stress [...] place to sleep or slept in a correction (including now)? 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 No / Unsure 11/26/2022 11:05 AM CDT documented as of this encounter Plan of Treatment Upcoming Encounters Date Type Department Care Team (Late st Contact Info) Description 12/27/2024 2:00 PM CDT Office Visit [facility] [place] [address] [phone] Alfie Calhoun MD 5204 [place] [address] 01/01/2025 11:00 AM CDT Office Visit [facility] Urology [facility] [address] [place] [phone] Derek Pacheco MD [address] [facility] [address] [place] [address] 01/21/2025 PRE VISIT [facility] Plastic and Reconstructive Surgery [address] [phone] Kristal Gamez PA-C [address] [place] [address] Previsit 01/21/2025 2:00 PM CDT Office Visit [facility] Plastic and Reconstructive Surgery [address] [phone] [place] [address] [place] [address] Kristal Gamez PA-C [address] [place] [address] 02/28/2025 9:30 AM CDT Virtual Visit [facility] Sleep [address] [phone] Kanu Rajan DO [address] [place], [place] [address] 10/24/2025 1:30 PM CDT Office Visit [facility] [address] [place] [address] [place] [address] [place] [address] documented as of this encounter Visit Diagnoses Not on filedocumented in this encounter Additional Health Concerns Infection Onset Date Last Indicated Resolved Time Rule Out COVID-19 12/28/2023 12/28/2023 12/29/2023 12:25 AM CDT Assessment Noted Time PHQ-9 Depression Total Score: 9 01/02/20 7:03 AM CDT documented as of this encounter Care Teams Food Assembler Relationship Specialty Start Date End Date No Ref-Primary, Physician PCP - General 07/23/22 05/23/23 [place] [address] [place] [address] PCP - General Family Medicine 05/24/23 10/15/24 [place] [address] [place] [address] PCP - General Family Medicine 10/16/24 Alfie Calhoun MD 5200 [place] [address] Dermatology 02/11/21 [place] [address] [place] [address] Assigned PCP 03/15/21 01/07/23 Derek Pacheco MD [address] [place] [address] [place] [address] Urology 03/31/21 Bobbi Snell, WEIGHT INSPECTOR 1700 [place] [address] Nurse Practitioner Family Medicine 07/27/22 Alfie Santacruz MD [address] [place] [address] 276 [place], [place] [address] Critical Care 07/27/22 Derek Pacheco MD 6363 [facility] 500 [place] [address] Assigned Surgical Provider 10/23/22 Linda Bhatti NP Assigned PCP 01/08/23 04/29/23 Milana Elise APRN CHILD SUPPORT SPECIALIST Assigned PCP 09/10/23 10/10/23 Milana Elise APRN CHILD SUPPORT SPECIALIST Assigned Pain Medication Provider 06/25/23 07/13/23 Milana Elise APRN CHILD SUPPORT SPECIALIST Assigned PCP 04/30/23 08/11/23 Milana Elise APRN CHILD SUPPORT SPECIALIST Assigned PCP 08/12/23 09/09/23 [place] [address] [place] [address] Assigned PCP 10/11/23 Kanu Rajan DO 606 [facility] 106 [place] [address] Assigned Sleep Provider 05/12/24 [place] [address] [place] [address] Family Medicine 07/18/24 Kristal Gamez PA-C [address] [address] Physician Senior Buyer Planner Plastic Surgery 07/18/24 Rashawn Ramirez MD [address] [place] [address] Assigned Dermatology Provider 09/09/24 Karen Lorenz CHW Community Health Worker 10/17/24 Veronique Menendez, RN Lead Medical Affairs Specialist Primary Care - CC 10/18/24 documented as of this encounter
--- OUTSIDE RECORDS SUMMARY | 2024-11-25 11:20 | XMS_ITS | Encounter Summary ---
Author Organization [facility] Address [address] [place] [address] Care Team Providers Care Hairspring Truing Inspector Name Role Phone CurryAlfie fish MD Unavailable Derek Pacheco MD Unavailable [phone] Bobbi Snell NP Unavailable Alfie Santacruz MD Unavailable [phone] Derek Pacheco MD Unavailable [phone] Shanel Lemra MD Unavailable Kanu Rajan DO Unavailable Shanel Lerma MD Unavailable Kristal Gamez PA-C Unavailable Rashawn Ramirez MD Unavailable Shanel Lerma MD Primary Care Provider [phone] Karen Lorenz Unavailable [phone] Veronique Menendez RN Unavailable Encounter Details Date Type Department Care Team (Late st Contact Info) Description 10/17/2024 [facility] [address] [place] [address] [place] [address] [place] [address] Social History Tobacco Use Types [...] friends or re latives? 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 documented in this encounter Plan of Treatment Upcoming Encounters Date Type Department Care Team (Late st Contact Info) Description 12/27/2024 2:00 PM CDT Office Visit [address] [phone] Alfie Calhoun MD 5200 [place] [address] 01/01/2025 11:00 AM CDT Office Visit [facility] U[facility] [address] [place] [phone] Derek Pacheco MD 6363 [facility] 500 [place] [address] 01/21/2025 PRE VISIT [facility] Plastic and Reconstructive Surgery [address] [phone] Kristal Gamez PA-C [address] [place] [address] Previsit 01/21/2025 2:00 PM CDT Office Visit [facility] Plastic and Reconstructive Surgery [address] [phone] [place] [address] [place] [address] Kristal Gamez PA-C [address] [place] [address] 02/28/2025 9:30 AM CDT Virtual Visit [facility] Sleep [address] [place] [phone] Kanu Rajan DO [address] [facility] 106 [place] [address] 10/24/2025 1:30 PM CDT Office Visit [facility] [address] [place] [phone] [place] [address] [place] [address] documented as of this encounter Visit Diagnoses Not on filedocumented in this encounter Additional Health Concerns Assessment Noted Time PHQ-9 Depression Total Score: 6 10/17/19 25 8:48 AM CDT documented as of this encounter Care Teams Hairspring Truing Inspector Relationship Specialty [place] [address] [place] [address] PCP - General Family Medicine 10/16/24 Alfie Calhoun MD 5200 [place] [address] Dermatology 02/11/21 Derek Pacheco MD [address] [place] [address] Urology 03/31/21 Bobbi Snell SECURITY MONITOR [facility] [place] [address] Nurse Practitioner Family Medicine 07/27/22 Alfie Santacruz MD [address] [place] [address] Critical Care 07/27/22 Derek Pacheco MD [address] [place] [address] Assigned Surgical Provider 10/23/22 [place] [address] [place] [address] Assigned PCP 10/11/23 Kanu Rajan DO [address] [place] [address] Assigned Sleep Provider 05/12/24 [place] [address] [place] [address] Family Medicine 07/18/24 Kristal Gamez PA-C [address] [address] Physician Environmental Assistant Plastic Surgery 07/18/24 Rashawn Ramirez MD 500 [place] [address] Assigned Dermatology Provider 09/09/24 Karen Lorenz CHW Community Health Worker 10/17/24 Veronique Menendez, RN Lead Miller Apprentice Primary Care - CC 10/18/24 documented as of this encounter
--- OUTSIDE RECORDS SUMMARY | 2024-11-25 11:20 | XMS_ITS | Encounter Summary ---
Author Organization Central Address [address] [place] [address] Care Team Providers Care Pickle Processor Name Role Phone CurryAlfie fish MD Unavailable [phone] Derek Pacheco MD Unavailable Bobbi Snell NP Unavailable Alfie Santacruz MD Unavailable [phone] Derek Pacheco MD Unavailable [phone] Shanel Lerma MD Unavailable [phone] Satinder Kanu Li DOMINGUEZ Unavailable [phone] Shanel Lerma MD Unavailable [phone] Kristal Gamez PA-C Unavailable [phone] Rashawn Ramirez MD Unavailable Shanel Lerma MD Primary Care Provider [phone] Encounter Details Date Type Department Care Team (Latest Contact Info) Description 10/16/2024 Travel Social History Tobacco Use Types Packs/Day [...] friends or re latives? 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 [place] [address] 01/01/2025 11:00 AM CDT Office Visit [facility] Urology [facility] [address] [place] [phone] Derek Pacheco MD [address] [place] [address] 01/21/2025 PRE VISIT [facility] [address] [phone] Kristal Gamez PA-C [address] [place] [address] Previsit 01/21/2025 2:00 PM CDT Office Visit [facility] Plastic and Reconstructive Surgery [address] [address] [place] [address] [place] [address] Kristal Gamez PA-C [address] [place] [address] 02/28/2025 9:30 AM CDT Virtual Visit [facility] Sleep [address] [phone] Kanu Rajan, 606 [facility] 106 [place] [address] 10/24/2025 1:30 PM CDT Office Visit [facility] [address] [place] [address] [place] [address] [place] [address] documented as of this encounter Visit Diagnoses Not on filedocumented in this encounter Additional Health Concerns Assessment Noted Time PHQ-9 Depression Total Score: 6 10/17/19 25 8:48 AM CDT documented as of this encounter Care Teams Pickle Processor Relationship Specialty [place] [address] [place] [address] PCP - General Family Medicine 10/16/24 Alfie Calhoun MD 5200 [place] [address] Dermatology 02/11/21 Derek Pacheco MD [address] [place] [address] Urology 03/31/21 Bobbi Snell, ACCOUNT RESOLUTION EXPERT 1700 [place] [address] Nurse Practitioner Family Medicine 07/27/22 Alfie Santacruz MD [address] [address] Critical Care 07/27/22 Derek Pacheco MD [address] [place] [address] Assigned Surgical Provider 10/23/22 [place] [address] [place] [address] Assigned PCP 10/11/23 Kanu Rajan DO [address] [place] [address] Assigned Sleep Provider 05/12/24 [place] [address] [place] [address] Family Medicine 07/18/24 Kristal Gamez PA-C [address] [address] Physician Software Test Specialist Plastic Surgery 07/18/24 Rashawn Ramirez MD 500 [place] [address] Assigned Dermatology Provider 09/09/24 documented as of this encounter
--- OUTSIDE RECORDS SUMMARY | 2024-11-25 11:20 | XMS_ITS | Encounter Summary ---
Author Organization [employer] Address [address] [place] [address] Care Team Providers Care Epitaxial Reactor Operator Name Role Phone CurryAlfie fish MD Unavailable Derek Pacheco MD Unavailable [phone] Bobbi Snell NP Unavailable Alfie Santacruz MD Unavailable [phone] Derek Pacheco MD Unavailable Shanel Lerma MD Primary Care Provider [phone] Shanel Lerma MD Unavailable [phone] Kanu Rajan DO Unavailable [phone] Shanel Lerma MD Unavailable [phone] Kristal Gamez PA-C Unavailable [phone] Rashawn Ramirez MD Unavailable Shanel Lerma MD Primary Care Provider Karen Lorenz Unavailable [phone] Veronique Menendez RN Unavailable Encounter Details [...] re latives? 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 Gender Identity Male 10/07/2018 12:43 PM CDT Sexual Orientation Straight 01/01/2021 1: 52 PM CDT documented as of this encounter Plan of Treatment Upcoming Encounters Date Type Department Care Team (Late st Contact Info) Description 12/27/2024 2:00 PM CDT Office Visit [address] [phone] Alfie Calhoun MD 5203 [place] [address] 01/01/2025 11:00 AM CDT Office Visit [facility] [place] [address] [place] [phone] Derek Pacheco MD [address] [place] [address] 01/21/2025 PRE VISIT [facility] Plastic and Reconstructive Surgery [address] [phone] Kristal Gamez PA-C [address] [place] [address] Previsit 01/21/2025 2:00 PM CDT Office Visit [facility] Plastic and Reconstructive Surgery [address] [phone] [place] [address] [place] [address] Kristal Gamez PA-C [address] [place] [address] 02/28/2025 9:30 AM CDT Virtual Visit [facility] Sleep Clinic [address] [phone] Kanu Rajan, DO [address] [place] [address] 10/24/2025 1:30 PM CDT Office Visit [facility] [address] [place] [address] [place] [address] [place] [address] documented as of this encounter Visit Diagnoses Not on filedocumented in this encounter Additional Health Concerns Assessment Noted Time PHQ-9 Depression Total Score: 0 04/19/20 23 10:30 AM CDT documented as of this encounter Care Teams Epitaxial Reactor Operator Relationship Specialty [place] [address] [place] [address] PCP - General Family Medicine 05/24/23 10/15/24 [place] [address] [place] [address] PCP - General Family Medicine 10/16/24 Alfie Calhoun MD 5200 [place] [address] Dermatology 02/11/21 Derek Pacheco MD [address] [place] [address] Urology 03/31/21 Bobbi Snell ENGINEERING TECHNOLOGIST [address] [place] [address] Nurse Practitioner Family Medicine 07/27/22 Alfie Santacruz MD [address] [place] [address] 276 [place] [address] Critical Care 07/27/22 Derek Pacheco MD [address] [place] [address] Assigned Surgical Provider 10/23/22 [place] [address] [place] [address] Assigned PCP 10/11/23 Kanu Rajan DO 606 [facility] 106 [place] [address] Assigned Sleep Provider 05/12/24 [place] [address] [place] [address] Family Medicine 07/18/24 Kristal Gamez PA-C [address] [address] Physician Sr Technical Sales Consultant Plastic Surgery 07/18/24 Rashawn Ramirez MD 500 [place] [address] Assigned Dermatology Provider 09/09/24 Karen Lorenz CHW Community Health Worker 10/17/24 Veronique Menendez, RN Lead Heavy Threader Primary Care - CC 10/18/24 documented as of this encounter
--- OUTSIDE RECORDS SUMMARY | 2024-11-25 11:20 | XMS_ITS | Encounter Summary ---
Author Organization [facility] Address [address] [place] [address] Care Team Providers Care Soccer Commentator Name Role Phone Alfie Calhoun MD Unavailable Derek Pacheco MD Unavailable Bobbi Snell NP Unavailable Alfie Santacruz MD Unavailable [phone] Derek Pacheco MD Unavailable [phone] Shanel Lerma MD Unavailable [phone] Kanu Rajan DO Unavailable [phone] Shanel Lerma MD Unavailable Kristal Gamez PA-C Unavailable [phone] Rashawn Ramirez MD Unavailable Shanel Lerma MD Primary Care Provider Veronique Menendez RN Unavailable Reason for Visit * Reason Onset Date Comments Prior Auth - Medication 10/31/2024 semaglut gamal-weight management (WEGOVY) 0.25 MG/0.5ML pen Encounter Details Date Type Department Care Team (Late st Contact Info) Description 10/31/2024 [facility] [place] [address] [place] [address] [place] [address] [place] [address] Prior Auth - Medication (semaglutide-weight management (WEGOVY) 0.25 MG/0.5ML pen) Social History Tobacco Use Types Packs/Day Years [...] Answer Date Recorded PHQ-2 Score 2 10/16/2024 [facility] of Occupat ional [facility] - Occupational Stress Questionnaire Answer Date Recorded [...] in an abandoned building, in an overnight prison, or couch-surfing.) Yes 10/19/2024 Are you worried [...] PM CDT 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 Patient is currently doing NOOM, and is down 10 pounds in 3 weeks. He is currently happy with that he is doing. Val Mohamud, Riding Double * Telephone Encounter - Shanel Lerma MD - 11/08/2024 2:40 PM CDT Please let Don know that we send appeal letter to insurance, and it was denied. He can pursue compounded options through [employer] if he chooses - more affordable than other options. * Telephone Encounter - Rigoberto Mathis - 11/08/2024 12:17 PM CDT Images from the original note were not included. MEDICATION APPEAL DENIED Medication: semaglutide-weight management (WEGOVY) 0.25 MG/0.5ML pen Denial Date: 11/08/2024 Denial Rational: Per insurance, medication is excluded from patient's benefit plan and will not be covered. Patient is able to use TelemetryWeb, Lumense or another discount card to help with the cost ofthe medication. Second Level Appeal Information: Second level appeals will be managed by the clinic staff and provider. Please contact the [facility] Prior Authorization Team if additional information about the denial is needed. * Telephone Encounter - Rigoberto Mathis - 11/06/2024 2:00 PM CDT Medication Appeal Initiation We have initiated an appeal for the requested medication: Medication: semaglutide-weight management (WEGOVY) 0.25 MG/0.5ML pen Appeal Start Date: 11/06/2024 Insurance Company: Comments: * Telephone Encounter - Shanel Lerma MD - 11/06/2024 11:57 AM CDT Letter completed to appeal denial of GLP1 * Telephone Encounter - Rigoberto Mathis - 11/02/2024 1:31 PM CDT Images from the original note were not included. PRIOR AUTHORIZATION DENIED Medication: semaglutide-weight management (WEGOVY) 0.25 MG/0.5ML pen Denial Date: 11/02/2024 Denial Rational: Per insurance, medication is excluded from patient's benefit plan and will not be covered. Patient is able to use TelemetryWeb, Lumense or another discount card to help with the cost ofthe medication. An appeal is NOT available on excluded medications. Please follow up with the patient and close encounter. Thank You. Appeal Information: N/A * Telephone Encounter - Rigoberto Mathis - 11/02/2024 12:47 PM CDT Central Prior Authorization Team PA Initiation Medication: semaglutide-weight management (WEGOVY) 0.25 MG/0.5ML pen Insurance Company: [facility] - Pharmacy Filling the Rx: [facility] - [address] Filling Pharmacy Filling Pharmacy Fax: Start Date: 11/02/2024 [facility] FRY: [id number] * Telephone Encounter - Yogesh Romeo - 10/31/2024 9:39 AM CDT Prior Authorization Retail Medication Request Medication/Dose: semaglutide-weight management (WEGOVY) 0.25 MG/0.5ML pen Diagnosis and ICD code (if different than what is on RX): E78.5, I10,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 PA: Previously Tried and Failed: None Rationale: Insurance [employer] FRY: [id number] PATIENT LAST NAME: ROSE MARIE : 1960 Secondary (if applicable): Insurance ID: Pharmacy Information (if different than what is on RX) Name: Phone: Fax: Clinic Information Preferred routing pool for dept communication: Yogesh Romeo XRT * Telephone Encounter - Val Mohamud MA - 10/31/2024 9:22 AM CDT Patient calling to follow up on PA for GLP1 medication. Informed patient we do not have a PA in process. We have not heard anything back from pharmacy since it was sent on 10/16. He contacted pharmacywho states the pharmacy faxed the rejection this morning. Val Mohamud, Riding Double documented in this encounter Plan of Treatment Upcoming Encounters Date Type Department Care Team (Late st Contact Info) Description 12/27/2024 2:00 PM CDT Office Visit [address] [phone] Alfie Calhoun MD 5200 [place] [address] 01/01/2025 11:00 AM CDT Office Visit [facility] Urology [facility] [address] [place] [phone] Derke Pacheco MD [address] [place] [address] 01/21/2025 PRE VISIT [facility] Plastic and Reconstructive Surgery Clinic [address] [phone] Kristal Gamez PA-C [address] [place] [address] Previsit 01/21/2025 2:00 PM CDT Office Visit [facility] Plastic [facility]constructive [facility] Clinic [address] [phone] [place] [address] [place] [address] Kristal Gamez PA-C [address] [address] 02/28/2025 9:30 AM CDT Virtual Visit [facility] Sleep [facility] [address] [facility] 202 [place] [phone] Kanu Rajan, DO [address] [place] [address] 106 [place], [place] [address] 10/24/2025 1:30 PM CDT Office Visit [facility] [address] [place] [phone] [place] [address] [place] [address] documented as of this encounter Goals Goal [...] clinic with 24/7 after hours services available. Protozoology Teacher will remain available as needed. Resources for [...] with any questions. I will contact my Protozoology Teacher if additional resources are needed or desired. 3. I will contact my care team with questions, concerns or support needs. I will use the clinic as a resource and I understand I can contact my clinic with 24/7 after hours services available. Protozoology Teacher will remain available as needed. Complete Health [...] the resource for Maishaing Oleg (department within [facility] that can assist with completing Advance Care Planning documents. 2. I will contact [employer] with any questions or when I am ready to complete my Advance Care Planning documents. 3. I will contact my care team with questions, concerns or support needs. I will use the clinic as a resource and I understand I can contact my clinic with 24/7 after hours services available. Protozoology Teacher will remain available as needed. documented as [...] documented as of this encounter Care Teams Soccer Commentator Relationship Specialty [place] [address] [place] [address] PCP - General Family Medicine 10/16/24 Alfie Calhoun MD 5200 [place] [address] Dermatology 02/11/21 Derek Pacheco MD [address] [place] [address] Urology 03/31/21 Bobbi Snell REGROOVER 1700 [place] [address] Nurse Practitioner Family Medicine 07/27/22 Alfie Santacruz MD [address] [place] [address] 276 [place] [address] Critical Care 07/27/22 Derek Pacheco MD [address] [place] [address] Assigned Surgical Provider 10/23/22 [place] [address] [place] [address] Assigned PCP 10/11/23 Kanu Rajan DO 606 24[facility] 106 [place] [address] Assigned Sleep Provider 05/12/24 [place] [address] [place] [address] Family Medicine 07/18/24 Kristal Gamez PA-C [address] [place] [address] Physician City Auditor Plastic Surgery 07/18/24 Rashawn Ramirez MD [address] [place] [address] Assigned Dermatology Provider 09/09/24 Veronique Menendez, RN Lead Protozoology Teacher Primary Care - CC 10/18/24 documented as of this encounter
--- OUTSIDE RECORDS SUMMARY | 2024-11-25 11:20 | XMS_ITS | Encounter Summary ---
Author Organization [facility] Address [address] [place] [address] Care Team Providers Care Optical Goods Worker Name Role Phone CurryAlfie fish MD Unavailable [phone] Derek Pacheco MD Unavailable Bobbi Snell NP Unavailable Alfie Santacruz MD Unavailable [phone] Derek Pacheco MD Unavailable Shanel Lerma MD Unavailable [phone] Kanu Rajan DO Unavailable [phone] Shanel Lerma MD Unavailable [phone] Kristal Gamez PA-C Unavailable [phone] Rashawn Ramirez MD Unavailable Shanel Lerma MD Primary Care Provider [phone] Veronique Menendez RN Unavailable Encounter Details Date Type Department Care Team (Latest Contact Info) Description 11/09/2024 Travel Social History Tobacco Use Types Packs/Day [...] friends or re latives? 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 Gender Identity Male 10/07/2018 12:43 PM CDT Sexual Orientation Straight 01/01/2021 1: 52 PM CDT documented as of this encounter Plan of Treatment Upcoming Encounters Date Type Department Care Team (Late st Contact Info) Description 12/27/2024 2:00 PM CDT Office Visit [address] [phone] Alfie Calhoun MD [facility] [place] [address] 01/01/2025 11:00 AM CDT Office Visit [facility] [place] [address] [place] [phone] Derek Pacheco MD [address] [place] [address] 01/21/2025 PRE VISIT [facility] Pl[facility] Reconstructive Surgery Clinic [address] [phone] Kristal Gamez PA-C [address] [place] [phone] [phone] 01/21/2025 2:00 PM CDT Office Visit [facility] Plastic and Reconstructive Surgery [facility] [address] [phone] [place] [address] [place] [address] Kristal Gamez PA-C [address] [place] [address] 02/28/2025 9:30 AM CDT Virtual Visit [facility] Sleep [address] 202 [place] [address] Kanu Rajan, DO [address] [place] [address] 106 [place] [address] 10/24/2025 1:30 PM CDT Office Visit [facility] [address] [place] [phone] [place] [address] [place] [address] documented as of this encounter Goals Goal [...] clinic with 24/7 after hours services available. Director Of Industrial Relations will remain available as needed. Resources for [...] with any questions. I will contact my Director Of Industrial Relations if additional resources are needed or desired. 3. I will contact my care team with questions, concerns or support needs. I will use the clinic as a resource and I understand I can contact my clinic with 24/7 after hours services available. Director Of Industrial Relations will remain available as needed. Complete Health [...] the resource for Elizabeth Dejesus (department within [facility] that can assist with completing Advance Care Planning documents. 2. I will contact [employer] Dejes[employer] with any questions or when I am ready to complete my Advance Care Planning documents. 3. I will contact my care team with questions, concerns or support needs. I will use the clinic as a resource and I understand I can contact my clinic with 24/7 after hours services available. Director Of Industrial Relations will remain available as needed. documented as [...] documented as of this encounter Care Teams Optical Goods Worker Relationship Specialty [place] [address] [place] [address] PCP - General Family Medicine 10/16/24 Alfie Calhoun MD 5200 [place] [address] Dermatology 02/11/21 Derek Pacheco MD [address] [place] [address] Urology 03/31/21 Bobbi Snell, FLOOR PLAN ADJUSTER 1700 [place] [address] Nurse Practitioner Family Medicine 07/27/22 Alfie Santacruz MD 420 [facility] 276 [place] [address] Critical Care 07/27/22 Derek Pacheco MD [address] [place] [address] Assigned Surgical Provider 10/23/22 [place] [address] [place] [address] Assigned PCP 10/11/23 Kanu Rajan DO 606 24[facility] 106 [place] [address] Assigned Sleep Provider 05/12/24 [place] [address] [place] [address] Family Medicine 07/18/24 Kristal Gamez PA-C [address] [place] [address] Physician Home Stager Plastic Surgery 07/18/24 Rashawn Ramirez MD 500 [place] [address] Assigned Dermatology Provider 09/09/24 Veronique Menendez, RN Lead Director Of Industrial Relations Primary Care - CC 10/18/24 documented as of this encounter
[2024-11-25] MEDS: 0.9 % SODIUM CHLORIDE 1000 ml 1,000 ML IV (11:26)
[2024-11-25] MEDS: ONDANSETRON 2 MG/ML inj 4 MG IVP (11:31)
[2024-11-25 11:46] LABS: Basophils Absolute Auto 0.01 K/uL (0.00-0.30); Basophils Percent Auto 0.2 % (0.0-3.0); Eosinophils Absolute Auto 0.22 K/uL (0.00-0.50); Eosinophils Percent Auto 3.4 % (0.0-7.0); Hematocrit 50.5 % (37.0-53.0); Hemoglobin* 16.5 gm/dL (13.5-17.5); Immature Granulocytes Abs Auto 0.01 K/uL (0.00-0.30); Immature Granulocytes Pct Auto 0.2 %; Lymphocytes Percent Auto 12.8 % (20-44); Mean Corpuscular HGB Conc 33 gm/dL (32-36); Mean Corpuscular Hemoglobin 29 pg (26-34); Mean Corpuscular Volume 90 fL (80-100); Monocytes Percent Auto 14.5 % (0.0-11.0); Neutrophils Absolute Auto 4.53 K/uL (1.7-7.0); Neutrophils Percent Auto 68.9 % (42.0-72.0); Platelet Count* 247 K/uL (140-440); Red Blood Count 5.64 m/uL (4.30-5.90); White Blood Count* 6.56 K/uL (4.50-11.00)
[2024-11-25 11:48] LABS: Slide Review Reflex No
[2024-11-25 12:03] LABS: Albumin* 3.9 g/dL (3.3-5.0); Chloride* 102 mmol/L (96-114); Potassium* 3.9 mmol/L (3.6-5.1); Sodium* 136 mmol/L (135-149)
[2024-11-25 12:05] LABS: Blood Urea Nitrogen* 15 mg/dL (7-30); Creatinine* 1.2 mg/dL (0.5-1.5); Est. Creatinine Clearance* 63.37; Estimated Glomerular Filt Rate 67 ml/min
[2024-11-25 12:06] LABS: Alanine Aminotransferase* 26 U/L (4-50); Alkaline Phosphatase* 99 U/L (40-150); Anion Gap 7 mEq/L (7-15); Aspartate Amino Transferase* 22 U/L (12-35); Bilirubin Total* 0.5 mg/dL (0.1-1.5); Calcium* 8.7 mg/dL (8.4-10.6); Carbon Dioxide* 27 mmol/L (20-32); Glucose* 103 mg/dL (60-115); Total Protein* 6.7 g/dL (6.0-8.3)
[2024-11-25 12:51] VITALS: BP 117/77; PULSE 78; RESP 18; O2SAT 96
== END 2024-11-25 13:00 | disposition home or self-care (01) ==
PROVIDERS: Emergency Provider Internal Medicine
DX: R11.2 Nausea with vomiting, unspecified (principal)
CPT/HCPCS: 36415; 80053; 85025; 96374; 99283; 99284; J2405; J7030